=== PATIENT | male | born 1935 | race Caucasian/White ===

== ENCOUNTER 2017-01-14 09:12 | Day surgery (SDC) | payer MEDICARE ==
[2017-01-14] MEDS ORDERED: fentaNYL 100 MCG/2 ML SDV ONE (09:16)
[2017-01-14] MEDS ORDERED: Midazolam 1 MG/ML 2 ML SDV ONE (09:16)
[2017-01-14] MEDS ORDERED: Propofol 200 MG/20 ML SDV ONE (09:16)
[2017-01-14] MEDS ORDERED: Lactated Ringers 1,000 ML IV SCH (10:00)
[2017-01-14 12:08] VITALS: BP 127/58
--- NOTE | 2017-01-15 07:39 | OR ---
DATE OF PROCEDURE: 01/14/2017 PREOPERATIVE DIAGNOSIS: Colon cancer screening. POSTOPERATIVE DIAGNOSIS: Diverticulosis, cecal tumor. PROCEDURE: Colonoscopy to the cecum with biopsy of cecal tumor. ANESTHESIA: IV anesthesia with monitored anesthesia care. INDICATION: This 81-year-old white male is referred for a colonoscopy for colon cancer screening. He says his last colonoscopic exam was done 10 to 15 years ago. I counseled him for the procedure including risks and alternatives, and he gave his informed consent to proceed. DESCRIPTION OF PROCEDURE: The patient was placed in the left lateral decubitus position. IV anesthesia was administered by the Anesthesia Service. Time-out was held. A rectal exam was performed, which was unremarkable. The flexible video Olympus colonoscope was introduced through his anus, up his rectum, and out his colon all way to the cecum. En route, we saw several left-sided diverticula. There was no bleeding or inflammation associated with any of them. In the cecum, we found a sessile polyp which appeared to be a tumor. There was no evidence of obvious cancer here, but this is clearly something which cannot be removed with the colonoscope, it spreads out into the cecum from the junction of the cecum and right colon. We obtained biopsies of this area. The scope was then withdrawn with no other new lesions noted. The scope was retroflexed in the rectum with the distal rectum appearing unremarkable. The scope was straightened and removed. He tolerated the procedure well. We will obtain a CBC, CMP, and type and screen. If this returns a cancer, we will also do a CAT scan and discuss with him about doing a right hemicolectomy. Cesar Mazariegos MD /[id number] ATUL
== END 2017-01-14 12:35 | disposition home or self-care (01) ==
LOC: JP.SDS 09:12
PROVIDERS: ATTEND Surgery
DX: Z12.11 Encounter for screening for malignant neoplasm of colon (principal); D12.0 Benign neoplasm of cecum; Z79.899 Other long term (current) drug therapy
CPT/HCPCS: 36415; 45380; 80053; 82378; 85027; 86850; 86900; 86901; 88305; J2250; J2704; J3010; J7120

== ENCOUNTER 2017-01-28 10:09 | Inpatient (IN) | payer MEDICARE ==
[2017-01-28] MEDS ORDERED: Dextrose 5%-Lactated Ringers 1,000 ML IV SCH (10:45)
[2017-01-28] MEDS ORDERED: Naloxone 0.4 MG/ML SDV IVPUSH PRN (11:41)
[2017-01-28] MEDS ORDERED: Ondansetron 4 MG/2 ML SDV ONE (12:31)
[2017-01-28] MEDS ORDERED: fentaNYL 250 MCG/5 ML SDV ONE ×2 (12:31→14:25)
[2017-01-28] MEDS ORDERED: Propofol 200 MG/20 ML SDV ONE (12:31)
[2017-01-28] MEDS ORDERED: Dexamethasone 4 MG/ML SDV ONE (12:31)
[2017-01-28] MEDS ORDERED: Neostigmine Methylsulfate 1 MG/ML 5 ML Syringe ONE (12:31)
[2017-01-28] MEDS ORDERED: Rocuronium 50 MG/5 ML Vial ONE (12:31)
[2017-01-28] MEDS: cefOXitin 2 GM in Sodium Chloride 0.9% 50 ML IV ONE ×2 (13:55→17:24)
[2017-01-28] MEDS ORDERED: ePHEDrine 50 MG/ML SDV ONE (14:35)
[2017-01-28] MEDS ORDERED: Sodium Chloride 0.9% 10 ML ONE (14:43)
[2017-01-28] MEDS ORDERED: Scopolamine 1.5 MG Transdermal Patch ONE (15:14)
[2017-01-28] MEDS ORDERED: Pantoprazole 40 MG Vial IVPUSH SCH (16:00)
[2017-01-28] MEDS ORDERED: hydrOXYzine HCl 50 MG/ML SDV IM PRN (16:14)
[2017-01-28] MEDS ORDERED: Scopolamine 1.5 MG Transdermal Patch TRDERM SCH (16:15)
[2017-01-28] MEDS: D5 1/2 NS w/ 20 mEq/L KCl 1,000 ML IV SCH (17:25)
[2017-01-28] MEDS: Pantoprazole 40 MG Vial IVPUSH SCH (18:17)
[2017-01-28] MEDS: Ondansetron 4 MG/2 ML SDV IVPUSH PRN (20:12)
[2017-01-28] MEDS ORDERED: HETASTARCH IV ONE (21:51)
[2017-01-28] MEDS ORDERED: SODIUM CHLORIDE IV ONE (21:51)
[2017-01-29] MEDS ORDERED: Lactated Ringers 250 ML IV SCH ×2 (03:15→15:45)
[2017-01-29] MEDS ORDERED: Ibuprofen 400 MG Tab PO PRN (06:33)
[2017-01-29] MEDS ORDERED: traMADol 50 MG Tab PO PRN (06:34)
[2017-01-29] MEDS: D5 1/2 NS w/ 20 mEq/L KCl 1,000 ML IV SCH ×2 (06:39→16:25)
--- NOTE | 2017-01-29 06:41 | PCM.SURGPN ---
- General Info Date of Service: 01/29/17 Date of Surgery/Procedure: 01/28/17 POD#: 1 Post-Op Diagnosis: Endoscopically unresectable tubulovillous adenoma Functional Status: Reports: pain controlled, tolerating diet, ambulating, urinating (Salas. Output is low. ) - Review of Systems General: Reports: No Symptoms HEENT: Reports: no symptoms Pulmonary: Reports: no symptoms Cardiovascular: Reports: No Symptoms Gastrointestinal: Reports: No symptoms, Flatus (Says he is passing gas. Has been taking liquids without problems. ) Genitourinary: Reports: no symptoms Musculoskeletal: Reports: no symptoms Skin: Reports: no symptoms Neurological: Reports: No Symptoms Psychiatric: Reports: no symptoms - Patient Data Vitals - most recent: Last Vital Signs Temp 98.4 F 01/29/17 05:49 Pulse 108 H 01/29/17 05:49 Resp 18 01/29/17 05:49 BP 110/89 01/29/17 05:49 Pulse Ox 94 L 01/29/17 05:49 Weight - most recent: 220 lb I&O - last 24 hours: Intake & Output 01/28/17 01/28/17 01/29/17 14:59 22:59 06:59 Intake Total 120 1538 Output Total 237 99 Balance -117 1439 Lab Results last 24 hrs: Laboratory Results - last 24 hr 01/28/17 01/29/17 01/29/17 Range/Units 18:00 04:50 04:50 WBC 15.6 H 17.8 H (4.5-11.0) K/uL RBC 4.85 4.60 (4.30-5.90) M/uL Hgb 15.9 H 15.0 (12.0-15.0) g/dL Hct 45.8 44.1 (40.0-54.0) % MCV 94 96 (80-98) fL MCH 33 H 33 H (27-31) pg MCHC 35 34 (32-36) % Plt Count 308 298 (150-400) K/uL Sodium 137 L (140-148) mmol/L Potassium 4.8 (3.6-5.2) mmol/L Chloride 104 (100-108) mmol/L Carbon Dioxide 22 (21-32) mmol/L Anion Gap 15.8 H (5.0-14.0) mmol/L BUN 27 H D (7-18) mg/dL Creatinine 1.5 H D (0.8-1.3) mg/dL Est Cr Clr Drug Dosing 36.04 mL/min Estimated GFR (MDRD) 45 L (>60) Glucose 208 H (74-106) mg/dL Calcium 8.2 L (8.5-10.1) mg/dL Med Orders - Current: Current Medications Alvimopan (Entereg) 12 mg PO Q12H [facility] Stop: 02/04/17 09:01 Last Admin: 01/28/17 21:05 Dose: 12 mg Atenolol (Tenormin) 50 mg PO DAILY [facility] Bisacodyl (Dulcolax) 10 mg PO BID [facility] Cetirizine HCl (Zyrtec) 10 mg PO DAILY [facility] Cholecalciferol (Vitamin D3) 1,000 units PO DAILY [facility] Enoxaparin Sodium (Lovenox) 40 mg SUBCUT DAILY [facility] Fluticasone Propionate (Flonase) 0 gm NASBOTH DAILY [facility] Hydroxyzine HCl (Vistaril) 50 mg IM Q6H PRN PRN Reason: Abdominal Pain Dextrose/Lactated Ringer's (Dextrose 5%-Lactated Ringers) 1,000 mls @ 100 mls/ hr IV ASDIRECTED CHANA Last Admin: 01/28/17 11:32 Dose: 100 mls/hr Fentanyl 2,500 mcg/ Sodium (Chloride) 250 mls @ 0 mls/hr EPIDUR TITRATE CHANA; Titrate PRN Reason: Protocol Potassium Chloride/Dextrose/Sod Cl (D5 1/2 Ns W/ 20 Meq/L Kcl) 1,000 mls @ 100 mls/hr IV ASDIRECTED CHANA Last Infusion: 01/29/17 03:11 Dose: 100 mls/hr Lactated Ringer's (Ringers, Lactated) 250 mls @ 250 mls/hr IV .BOLUS CHANA Last Admin: 01/29/17 03:05 Dose: 250 mls/hr Ibuprofen (Motrin) 400 mg PO Q6H PRN PRN Reason: Abdominal Pain Lisinopril (Prinivil) 2.5 mg PO DAILY [facility] Multivitamins/Minerals (Thera M Plus) 1 tab PO DAILY [facility] Naloxone HCl (Narcan) 0.1 mg IVPUSH Q5M PRN PRN Reason: RESP RATE LESS THAN 6/MINUTE Transderm Scop Patch (Check) 0 each TOP DAILY [facility] Ondansetron HCl (Zofran) 4 mg IVPUSH Q6H PRN PRN Reason: Nausea/Vomiting Last Admin: 01/28/17 20:12 Dose: 4 mg Pantoprazole Sodium (Protonix Iv) 40 mg IVPUSH Q24H [facility] Last Admin: 01/28/17 18:17 Dose: 40 mg Scopolamine (Transderm-Scop) 1.5 mg TRDERM Q72H [facility] Senna (Senna) 8.6 mg PO DAILY [facility] Simvastatin (Zocor) 80 mg PO DAILY [facility] Tamsulosin HCl (Flomax) 0.4 mg PO PCBREAKFAST [facility] Tramadol HCl (Ultram) 50 mg PO Q4H PRN PRN Reason: Abdominal Pain Discontinued Medications Alvimopan (Entereg) 12 mg PO ONETIME ONE Stop: 01/28/17 10:16 Last Admin: 01/28/17 12:01 Dose: 12 mg Alvimopan (Entereg) 12 mg PO Q12H [facility] Stop: 02/04/17 04:16 Last Admin: 01/28/17 17:38 Dose: Not Given Atenolol (Tenormin) 50 mg PO DAILY [facility] Cetirizine HCl (Zyrtec) 10 mg PO DAILY [facility] Dexamethasone (Dexamethasone) Confirm Administered Dose 4 mg .ROUTE .STK-MED ONE Stop: 01/28/17 12:32 Enoxaparin Sodium (Lovenox) 40 mg SUBCUT DAILY [facility] Ephedrine Sulfate (Ephedrine Sulfate) Confirm Administered Dose 50 mg .ROUTE .STK-MED ONE Stop: 01/28/17 14:36 Fentanyl (Sublimaze) Confirm Administered Dose 250 mcg .ROUTE .STK-MED ONE Stop: 01/28/17 12:32 Fentanyl (Sublimaze) Confirm Administered Dose 250 mcg .ROUTE .STK-MED ONE Stop: 01/28/17 14:26 Glycopyrrolate () Confirm Administered Dose 1 mg .ROUTE .STK-MED ONE Stop: 01/28/17 12:32 Cefoxitin Sodium 2 gm/ Sodium (Chloride) 50 mls @ 100 mls/hr IV ONETIME ONE Stop: 01/28/17 13:14 Last Admin: 01/28/17 17:24 Dose: Not Given Sodium Chloride (Normal Saline) Confirm Administered Dose 10 mls @ as directed .ROUTE .[facility] ONE Stop: 01/28/17 14:44 Hetastarch/Sodium Chloride (Hetastarch 6% In Normal Saline) 250 mls @ 250 mls/ hr IV ONETIME ONE Stop: 01/28/17 22:50 Last Admin: 01/28/17 22:26 Dose: 250 mls/hr Lisinopril (Prinivil) 2.5 mg PO DAILY [facility] Neostigmine Methylsulfate (Neostigmine) Confirm Administered Dose 5 mg .ROUTE .[facility] ONE Stop: 01/28/17 12:32 Non-Formulary Medication (Cholecalciferol (Vitamin D3) [Vitamin D]) 1,000 unit PO DAILY [facility] Non-Formulary Medication (Fluticasone Propionate [Flonase Allergy Relief]) 2 spray NS DAILY [facility] Non-Formulary Medication (Multivitamin With Minerals [Multiple Vitamin]) 1 tab PO DAILY [facility] Non-Formulary Medication (Multivitamin-Min/Iron/Fa/Vit K [Multi-Day Plus Minerals Tablet]) 1 tab PO DAILY [facility] Non-Formulary Medication (Simvastatin [Simvastatin]) 80 mg PO DAILY [facility] Ondansetron HCl (Zofran) Confirm Administered Dose 4 mg .ROUTE .[facility] ONE Stop: 01/28/17 12:32 Pantoprazole Sodium (Protonix Iv) 40 mg IVPUSH DAILY [facility] Last Admin: 01/28/17 17:37 Dose: Not Given Propofol (Diprivan 20 Ml) Confirm Administered Dose 200 mg .ROUTE .[facility] ONE Stop: 01/28/17 12:32 Rocuronium [place] (Zemuron) Confirm Administered Dose 50 mg .ROUTE .[facility] ONE Stop: 01/28/17 12:32 Scopolamine (Transderm-Scop) Confirm Administered Dose 1.5 mg .ROUTE .[facility] ONE Stop: 01/28/17 15:15 Scopolamine (Transderm-Scop) 1.5 mg TRDERM Q72H [facility] Last Admin: 01/28/17 17:38 Dose: Not Given Tamsulosin HCl (Flomax) 0.4 mg PO PCBREAKFAST CHANA - Exam Wound/Incisions: dressing dry and intact Quality Assessment: urine catheter, DVT prophylaxis General: alert, oriented, cooperative, no acute distress Lungs: Clear to auscultation, Normal respiratory effort Cardiovascular: Regular Rate, Regular Rhythm Abdomen: soft, no tenderness, no distension Extremities: no edema Skin: warm, dry, intact Neurological: no new focal deficit Psy/Mental Status: alert, normal affect, normal mood - Problem List Review Problem List Initiated/Reviewed/Updated: Yes - My Orders Last 24 Hours: Active Orders 24 hr Category Date Time Status Patient Status [ADT] Routine ADT 01/28/17 15:57 Active Ambulate [RC] PER UNIT ROUTINE Care 01/28/17 15:57 Active Antiembolic Devices [RC] .Routine Care 01/28/17 16:07 Active Salas Catheter Insertion [Insert Urinary Catheter] [OM. Care 01/28/17 17:30 Ordered PC] Q24H Intake and Output [RC] Q4HR Care 01/28/17 16:00 Active Notify Provider Intake and Out [RC] PRN Care 01/28/17 16:01 Active Notify Provider Vital Signs [RC] PRN Care 01/28/17 16:01 Active Oxygen Therapy [RC] PRN Care 01/28/17 15:57 Active Pulse Oximetry [RC] CONTINUOUS Care 01/28/17 16:05 Active RT Incentive Spirometry [RC] ASDIRECTED Care 01/28/17 15:57 Active Up With Assistance [RC] ASDIRECTED Care 01/28/17 15:57 Active Up to Chair [RC] ASDIRECTED Care 01/28/17 15:57 Active Urinary Catheter Assessment [RC] Q12H Care 01/28/17 18:20 Active VTE/DVT Education [RC] Click to Edit Care 01/28/17 16:07 Active Respiratory Care Assess and Treatment [CONS] Routine Cons 01/28/17 15:57 Active Advance Diet Instructions [DIET] Diet 01/28/17 Dinner Active BASIC METABOLIC PANEL,BMP [CHEM] AM Lab 01/30/17 05:11 Ordered BASIC METABOLIC PANEL,BMP [CHEM] AM Lab 01/31/17 05:11 Ordered BASIC METABOLIC PANEL,BMP [CHEM] AM Lab 02/01/17 05:11 Ordered BASIC METABOLIC PANEL,BMP [CHEM] AM Lab 02/02/17 05:11 Ordered BASIC METABOLIC PANEL,BMP [CHEM] AM Lab 02/03/17 05:11 Ordered CBC W/O DIFF,HEMOGRAM [HEME] DAILY Lab 01/30/17 05:10 Ordered CBC W/O DIFF,HEMOGRAM [HEME] DAILY Lab 01/31/17 05:10 Ordered CBC W/O DIFF,HEMOGRAM [HEME] DAILY Lab 02/01/17 05:10 Ordered CBC W/O DIFF,HEMOGRAM [HEME] DAILY Lab 02/02/17 05:10 Ordered CBC W/O DIFF,HEMOGRAM [HEME] DAILY Lab 02/03/17 05:10 Ordered Alvimopan [Entereg] Med 01/28/17 21:00 Active 12 mg PO Q12H Atenolol [Tenormin] Med 01/29/17 09:00 Active 50 mg PO DAILY Bisacodyl [Dulcolax] Med 01/29/17 09:00 Ordered 10 mg PO BID Cetirizine [ZyrTEC] Med 01/29/17 09:00 Active 10 mg PO DAILY Cholecalciferol (Vitamin D3) [Vitamin D3] Med 01/29/17 09:00 Active 1,000 units PO DAILY D5 1/2 NS w/ 20 mEq/L KCl 1,000 ml Med 01/28/17 16:15 Active IV ASDIRECTED Dextrose 5%-Lactated Ringers 1,000 ml Med 01/28/17 10:45 Active IV ASDIRECTED Enoxaparin [Lovenox] Med 01/29/17 09:00 Active 40 mg SUBCUT DAILY Fluticasone Propionate [Flonase] Med 01/29/17 09:00 Active 0 gm NASBOTH DAILY Ibuprofen [Motrin] Med 01/29/17 06:33 Ordered 400 mg PO Q6H PRN Lactated Ringers [Ringers, Lactated] 250 ml Med 01/29/17 03:15 Active IV .BOLUS Lisinopril [Prinivil] Med 01/29/17 09:00 Active 2.5 mg PO DAILY Multivitamins w-Iron/Ca/FA/Min [Thera M Plus] Med 01/29/17 09:00 Active 1 tab PO DAILY Naloxone [Narcan] Med 01/28/17 11:41 Active 0.1 mg IVPUSH Q5M PRN Non-Formulary Medication [NF Drug] Med 01/29/17 09:00 Active 0 each TOP DAILY Ondansetron [Zofran] Med 01/28/17 15:57 Active 4 mg IVPUSH Q6H PRN Pantoprazole [ProTONIX IV] Med 01/28/17 18:00 Active 40 mg IVPUSH Q24H Scopolamine [Transderm-Scop] Med 01/31/17 10:00 Active 1.5 mg TRDERM Q72H Sennosides [Senna] Med 01/29/17 09:00 Active 8.6 mg PO DAILY Simvastatin [Zocor] Med 01/29/17 09:00 Active 80 mg PO DAILY Tamsulosin [Flomax] Med 01/29/17 09:00 Active 0.4 mg PO PCBREAKFAST fentaNYL [Sublimaze] 2,500 mcg Med 01/28/17 12:30 Active Sodium Chloride 0.9% [Normal Saline] 200 ml EPIDUR TITRATE hydrOXYzine HCl [Vistaril] Med 01/28/17 16:14 Active 50 mg IM Q6H PRN traMADol [Ultram] Med 01/29/17 06:34 Ordered 50 mg PO Q4H PRN Abdominal Binder [OM.PC] Per Unit Routine Oth 01/28/17 16:00 Ordered DVT/VTE Prophylaxis Reflex [OM.PC] Per Unit Routine Oth 01/28/17 16:07 Ordered Sequential Compression Device [OM.PC] Routine Oth 01/28/17 12:45 Ordered Sequential Compression Device [OM.PC] Routine Oth 01/28/17 15:57 Ordered Resuscitation Status Routine Resus Stat 01/28/17 15:57 Ordered Medication Orders Alvimopan (Entereg) 12 mg PO Q12H [facility]ANA Stop: 02/04/17 09:01 Last Admin: 01/28/17 21:05 Dose: 12 mg Atenolol (Tenormin) 50 mg PO DAILY [facility] Bisacodyl (Dulcolax) 10 mg PO BID [facility] Cetirizine HCl (Zyrtec) 10 mg PO DAILY [facility] Cholecalciferol (Vitamin D3) 1,000 units PO DAILY [facility] Enoxaparin Sodium (Lovenox) 40 mg SUBCUT DAILY [facility] Fluticasone Propionate (Flonase) 0 gm NASBOTH DAILY [facility] Hydroxyzine HCl (Vistaril) 50 mg IM Q6H PRN PRN Reason: Abdominal Pain Dextrose/Lactated Ringer's (Dextrose 5%-Lactated Ringers) 1,000 mls @ 100 mls/ hr IV ASDIRECTED CHANA Last Admin: 01/28/17 11:32 Dose: 100 mls/hr Fentanyl 2,500 mcg/ Sodium (Chloride) 250 mls @ 0 mls/hr EPIDUR TITRATE CHANA; Titrate PRN Reason: Protocol Potassium Chloride/Dextrose/Sod Cl (D5 1/2 Ns W/ 20 Meq/L Kcl) 1,000 mls @ 100 mls/hr IV ASDIRECTED CHANA Last Infusion: 01/29/17 03:11 Dose: 100 mls/hr Admin: 01/28/17 17:25 Dose: 75 mls/hr Lactated Ringer's (Ringers, Lactated) 250 mls @ 250 mls/hr IV .BOLUS [facility] Last Admin: 01/29/17 03:05 Dose: 250 mls/hr Ibuprofen (Motrin) 400 mg PO Q6H PRN PRN Reason: Abdominal Pain Lisinopril (Prinivil) 2.5 mg PO DAILY [facility] Multivitamins/Minerals (Thera M Plus) 1 tab PO DAILY [facility] Naloxone HCl (Narcan) 0.1 mg IVPUSH Q5M PRN PRN Reason: RESP RATE LESS THAN 6/MINUTE Transderm Scop Patch (Check) 0 each TOP DAILY [facility] Ondansetron HCl (Zofran) 4 mg IVPUSH Q6H PRN PRN Reason: Nausea/Vomiting Last Admin: 01/28/17 20:12 Dose: 4 mg Pantoprazole Sodium (Protonix Iv) 40 mg IVPUSH Q24H [facility] Last Admin: 01/28/17 18:17 Dose: 40 mg Scopolamine (Transderm-Scop) 1.5 mg TRDERM Q72H [facility] Senna (Senna) 8.6 mg PO DAILY [facility] Simvastatin (Zocor) 80 mg PO DAILY [facility] Tamsulosin HCl (Flomax) 0.4 mg PO PCBREAKFAST [facility] Tramadol HCl (Ultram) 50 mg PO Q4H PRN PRN Reason: Abdominal Pain - Assessment Assessment (Free Text/Narrative):: Low urine output. Taking fluids well. No pain. - Plan Plan (Free Text/Narrative):: Fluid boluses as needed.
[2017-01-29] MEDS ORDERED: Lactated Ringers 250 ML IV ONE ×2 (06:45→17:00)
--- NOTE | 2017-01-29 07:27 | OR ---
DATE OF PROCEDURE: 01/28/2017 PREOPERATIVE DIAGNOSIS: Endoscopically unresectable tubulovillous adenoma of cecum. POSTOPERATIVE DIAGNOSIS: Endoscopically unresectable tubulovillous adenoma of cecum. PROCEDURE: Right hemicolectomy with primary ileotransverse colon anastomosis. ANESTHESIA: General endotracheal. INDICATION: This 81-year-old white male underwent a colonoscopy earlier this month with finding of a lesion in his cecum. This was sessile and unresectable endoscopically. It on biopsy returned a tubulovillous adenoma. He is admitted for a right hemicolectomy. I counseled him for surgery including risks and alternatives and he gave his informed consent to proceed with the procedure. DESCRIPTION OF PROCEDURE: After adequate general endotracheal anesthesia was obtained, a Salas catheter was placed. The leg compression stockings were in place and used during the entire procedure. His abdomen was prepped and draped in usual sterile fashion. Time-out was held. A midline incision was made from just above to just below the umbilicus. This was carried deep using Bovie cautery to the fascia. The fascia was incised and the underlying perineum was elevated and incised. The peritoneal and fascial incisions were extended the length of the skin incision using Bovie cautery while protecting underlying structures. The abdomen was explored and appeared unremarkable. The peritoneal reflection was taken down on the right side, mobilizing up to the right colon. He does have a history of an appendectomy done over 50 years ago. A suitable point for dividing the bowel proximally in the distal terminal ileum was selected. The RAEANN was used to divide this with a blue load going from the antimesenteric border to the mesenteric border. A suitable point in the transverse colon for the ileotransverse colon anastomosis was selected and then the transverse colon was divided at this point with one end of the staple line ending at the planned anastomotic teniae. The intervening mesentery was divided well away from the colon using the endoscopic RAEANN with vascular loads. It was done well away to get adequate lymph nodes should there be a carcinoma within the tubular villous adenoma. The specimen then consisting of a small portion of the terminal ileum, cecum, and right colon was delivered from the field. A functional end-to-end anastomosis was then made by bringing the terminal ileum up to the transverse colon and anastomosing the antimesenteric border of the terminal ileum to the teniae of the transverse colon. This was done by placing the an 80 mm blue load RAEANN in each limb and firing it. The distal end of the staple line was bolstered with 2-0 silk suture. The stapler was removed. The opening through which the stapler had been placed was then closed with another RAEANN blue load stapler. This last staple line was oversewn with Lembert stitches of 3-0 silk. All looked well. The anastomosis appeared intact. The mesenteric defect was closed with a running stitch of 3-0 Vicryl. The incision was irrigated with sterile water and suctioned dry. We did place some Surgicel down in the right colic gutter. Interceed was then placed over the abdomen and the fascia was closed with a running stitch of #2 Vicryl. The incision again irrigated with sterile water and suctioned dry. Skin ulises were placed to approximate the skin. A sterile dressing was applied. The specimen was then opened off the field and the endoscopically unresectable tubulovillous adenoma was seen in the colon. The anesthesia was reversed. He was extubated and brought to the recovery room in good condition having tolerated the procedure well. Cesar Mazariegos MD /[id number] ATUL
[2017-01-29] MEDS: Cetirizine 10 MG Tab PO SCH (08:56)
[2017-01-29] MEDS: Bisacodyl 5 MG Tab PO SCH ×2 (08:56→21:07)
[2017-01-29] MEDS: Lisinopril 2.5 MG Tab PO SCH (08:56)
[2017-01-29] MEDS: Cholecalciferol (Vitamin D3) 1,000 Unit Tab PO SCH (08:57)
[2017-01-29] MEDS: Atenolol 50 MG Tab PO SCH (08:58)
[2017-01-29] MEDS: Multivitamins with Iron/Calcium/Folic Acid/Minerals Tab PO SCH (08:58)
[2017-01-29] MEDS: Sennosides 8.6 MG Tab PO SCH (08:58)
[2017-01-29] MEDS: Fluticasone Propionate Nasal Spray 16 GM Bottle NASBOTH SCH (08:58)
[2017-01-29] MEDS: TRANSDERM SCOP CHECK TOP SCH (08:59)
[2017-01-29] MEDS ORDERED: Atenolol 50 MG Tab PO SCH (09:00)
[2017-01-29] MEDS ORDERED: Tamsulosin 0.4 MG Cap.ER PO SCH (09:00)
[2017-01-29] MEDS ORDERED: [UNRECOGNIZED DRUG - REMARK] NS SCH (09:00)
[2017-01-29] MEDS ORDERED: Lisinopril 2.5 MG Tab PO SCH (09:00)
[2017-01-29] MEDS ORDERED: Non-Formulary Medication 1 Each (Cholecalciferol (Vitamin D3) [Vitamin D] 1,000 UNIT) PO SCH (09:00)
[2017-01-29] MEDS: Tamsulosin 0.4 MG Cap.ER PO SCH (09:00)
[2017-01-29] MEDS ORDERED: Non-Formulary Medication 1 Each (Multivitamin-Min/Iron/Fa/Vit K [Multi-Day Plus Minerals T PO SCH ×2 (09:00)
[2017-01-29] MEDS ORDERED: Cetirizine 10 MG Tab PO SCH (09:00)
[2017-01-29] MEDS ORDERED: Enoxaparin 40 MG/0.4 ML Syringe SUBCUT SCH ×2 (09:00)
[2017-01-29] MEDS ORDERED: Non-Formulary Medication 1 Each (Simvastatin [Simvastatin] 80 MG) PO SCH (09:00)
[2017-01-29] MEDS ORDERED: Non-Formulary Medication 1 Each (Multivitamin With Minerals [Multiple Vitamin] 1 TAB) PO SCH (09:00)
[2017-01-29] MEDS: fentaNYL 2,500 MCG in Sodium Chloride 0.9% 200 ML EPIDUR SCH (11:48)
[2017-01-29] MEDS: Enoxaparin 40 MG/0.4 ML Syringe SUBCUT SCH (13:36)
[2017-01-29] MEDS: Pantoprazole 40 MG Vial IVPUSH SCH (17:12)
[2017-01-29] MEDS: Simvastatin 20 MG Tab PO SCH (17:13)
[2017-01-29] MEDS ORDERED: Lactated Ringers 500 ML IV ONE (20:59)
[2017-01-30] MEDS ORDERED: Furosemide 20 MG/2 ML VIAL IVPUSH ONE (01:22)
[2017-01-30] MEDS: D5 1/2 NS w/ 20 mEq/L KCl 1,000 ML IV SCH (04:06)
[2017-01-30] MEDS ORDERED: Dextrose 5%-0.45% NaCl 1,000 ML IV SCH (07:45)
[2017-01-30] MEDS: fentaNYL 2,500 MCG in Sodium Chloride 0.9% 200 ML EPIDUR SCH (07:48)
[2017-01-30] MEDS ORDERED: Sodium Chloride 0.9% 1,000 ML IV SCH ×2 (08:15→13:00)
--- NOTE | 2017-01-30 08:45 | CR ---
Chest 1V Frontal HISTORY: Hypotension, leukocytosis COMPARISON: 08/30/2012 FINDINGS: There is mild linear atelectasis versus early infiltrate left lung base. Remainder the luz st is clear. Heart size is felt to be within normal limits for the AP portable technique and stable. Old median sternotomy changes are noted. There is no vascular redistribution or pleural fluid. Inco mplete inspiration causes some crowding of the pulmonary markings. IMPRESSION: Incomplete inspiration causes some crowding of the pulmonary markings. There are mild li near bone less changes versus early infiltrates left lung base. Remainder the chest is stable. Recom mend clinical correlation and follow-up.
[2017-01-30] MEDS ORDERED: Piperacillin/Tazobactam 3.375 GM in Sodium Chloride 0.9% 50 ML IV SCH (09:45)
[2017-01-30] MEDS ORDERED: Levofloxacin/Dextrose 5%-Water 500 MG in Premix Bag 1 BAG IV SCH (10:00)
--- NOTE | 2017-01-30 10:03 | PCM.CONS ---
H&P History of Present Illness - General Date of Service: 01/30/17 Admit Problem/Dx: Admission Diagnosis/Problem Admission Diagnosis/Problem "Adenoma, no subtype " Source of Information: Patient, Family, Old Records, Provider, RN Notes Reviewed History Limitations: Reports: No Limitations - History of Present Illness Initial Comments - Free Text/Narative: This patient is a 81-year-old gentleman been asked to see by Dr. Mazariegos for further suggestions concerning hypotension, renal insufficiency, hyperkalemia, and leukocytosis. 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 During the postoperative period has had low urine outputs with intermittent hypotension requiring fluid boluses. Labs are this morning show progressive renal compromise and significant hyperkalemia. Vision reports that he's otherwise been feeling well denies significant shortness of breath or any symptoms of chest pain or pressure. He has been able to be up walking in the halls and spent much of the day in the chair yesterday. He has known underlying coronary artery disease status post coronary artery bypass surgery done approximately 5 years ago. White blood cell count has been elevated and has increased over the past few days. Denies significant increase in abdominal pain, he has tolerated clear liquids but has not yet passed gas or had a bowel movement. Bilateral Middle Abdomen Pain Score (Numeric/FACES): 0 - Related Data Allergies/Adverse Reactions: Allergies Allergy/AdvReac Type Severity Reaction Status Date / Time No Known Allergies Allergy Verified 01/14/17 09:25 Home Medications: Home Meds Aspirin 81 mg PO DAILY 01/12/17 [History] Atenolol [Atenolol] 50 mg PO DAILY 01/12/17 [History] Cetirizine [ZyrTEC] 10 mg PO DAILY 01/12/17 [History] Cholecalciferol (Vitamin D3) [Vitamin D] 1,000 unit PO DAILY 01/12/17 [History] Fluticasone Propionate [Flonase Allergy Relief] 2 spray NS DAILY 01/12/17 [ History] Lisinopril [Prinivil] 2.5 mg PO DAILY 01/12/17 [History] Multivitamin with Minerals [Multiple Vitamin] 1 tab PO DAILY 01/12/17 [History] Multivitamin-Min/Iron/FA/Vit K [Multi-Day Plus Minerals Tablet] 1 tab PO DAILY 01/12/17 [History] Ranitidine [Zantac] 300 mg PO DAILY 01/12/17 [History] Sennosides [Senna] 1 tab PO ASDIRECTED 01/12/17 [History] Simvastatin [Simvastatin] 80 mg PO DAILY 01/12/17 [History] Past Medical History HEENT History: Reports: Impaired Vision Cardiovascular History: Reports: Bypass, CAD, Hypertension Genitourinary History: Reports: BPH Musculoskeletal History: Reports: Arthritis - Infectious Disease History Infectious Disease History: Reports: Chicken Pox, Measles, Mumps - Past Surgical History HEENT Surgical History: Reports: Tonsillectomy Cardiovascular Surgical History: Reports: Coronary Artery Bypass GI Surgical History: Reports: Appendectomy, Colonoscopy Male Surgical History: Reports: None Musculoskeletal Surgical History: Reports: None Social & Family History - Family History Family Medical History: Noncontributory - Tobacco Use Smoking Status *Q: Former Smoker Years of Tobacco use: 20 Packs/Tins Daily: 1 Used Tobacco, but Quit: Yes Month Tobacco Last Used: 1964 Second Hand Smoke Exposure: No - Caffeine Use Caffeine Use: Reports: Coffee, Tea - Alcohol Use Days Per Week of Alcohol Use: 2 Number of Drinks Per Day: 1 Total Drinks Per Week: 2 Date of Last Drink: 01/14/17 - Recreational Drug Use Recreational Drug Use: No H&P Review of Systems - Review of Systems: Review Of Systems: See Below General: Reports: Weakness. Denies: Fever, Chills HEENT: Reports: No Symptoms Pulmonary: Reports: No Symptoms Cardiovascular: Reports: No Symptoms Gastrointestinal: Reports: Abdominal Pain. Denies: Flatus, Nausea, Vomiting Genitourinary: Reports: No Symptoms Musculoskeletal: Reports: No Symptoms Skin: Reports: No Symptoms Psychiatric: Reports: No Symptoms Neurological: Reports: No Symptoms Hematologic/Lymphatic: Reports: No Symptoms Immunologic: Reports: No Symptoms Exam - Exam Exam: See Below - Vital Signs Vital Signs: Last Vital Signs Temp 99.3 F 01/30/17 07:08 Pulse 80 01/30/17 07:08 Resp 12 01/30/17 08:03 BP 95/65 01/30/17 07:08 Pulse Ox 94 L 01/30/17 07:40 Weight: 219 lb 15.988 oz - Exam Quality Assessment: DVT Prophylaxis General: Alert, Oriented, Cooperative, Mild Distress Neck: Supple, Trachea Midline, +2 Carotid Pulse wo Bruit Lungs: Clear to Auscultation, Normal Respiratory Effort Cardiovascular: Regular Rate, Regular Rhythm, Normal S1, Normal S2. No: Irregular Rhythm, Bradycardia, Tachycardia, Systolic Murmur, Diastolic Murmur Abdomen: Soft, Tenderness, Hypoactive Bowel Sounds. No: Organomegaly, Peritoneal Signs, Distention, Guarding, Rigidity, Rebound Back Exam: Normal Inspection, Full Range of Motion, NT Extremities: 3, Normal Inspection, 10 Skin: Warm, Dry, Intact Neurological: Cranial Nerves Intact, Strength Equal Bilateral, Normal Speech, Normal Tone, Sensation Intact. No: Focal Deficit Neuro Extensive - Mental Status: Alert, Oriented x3, Normal Mood/Affect, Normal Cognition, Memory Intact - Patient Data Lab Results last 24 hrs: Laboratory Results - last 24 hr 01/30/17 01/30/17 01/30/17 Range/Units 05:10 05:11 09:04 WBC 18.3 H (4.5-11.0) K/uL RBC 3.70 L (4.30-5.90) M/uL Hgb 12.5 D (12.0-15.0) g/dL Hct 35.8 L (40.0-54.0) % MCV 97 (80-98) fL MCH 34 H (27-31) pg MCHC 35 (32-36) % Plt Count 249 (150-400) K/uL Sodium 134 L (140-148) mmol/L Potassium 6.0 H (3.6-5.2) mmol/L Chloride 102 (100-108) mmol/L Carbon Dioxide 24 (21-32) mmol/L Anion Gap 14.0 (5.0-14.0) mmol/L BUN 55 H D (7-18) mg/dL Creatinine 2.2 H (0.8-1.3) mg/dL Est Cr Clr Drug Dosing 24.69 mL/min Estimated GFR (MDRD) 29 L (>60) Glucose 129 H (74-106) mg/dL Calcium 8.3 L (8.5-10.1) mg/dL Total Bilirubin 0.0 L D (0.2-1.0) mg/dL Direct Bilirubin 0.15 (0.0-0.2) mg/dL Indirect Bilirubin -0.15 AST 34 D (15-37) U/L ALT 24 (12-78) U/L Alkaline Phosphatase 32 L (46-116) U/L Total Protein 6.2 L (6.4-8.2) g/dL Albumin 2.8 L (3.4-5.0) g/dL Globulin 3.4 (2.3-3.5) g/dL Albumin/Globulin Ratio 0.8 L (1.2-2.2) Result Diagrams: 01/30/17 05:10 01/30/17 05:11 Consult PN Assessment/Plan Procedures: Procedures BLOOD TYPING SEROLOGIC ABO (01/14/17) BLOOD TYPING SEROLOGIC RH(D) (01/14/17) CARCINOEMBRYONIC ANTIGEN (01/14/17) COLONOSCOPY AND BIOPSY (01/14/17) COMPLETE CBC AUTOMATED (01/14/17) COMPREHEN METABOLIC PANEL (01/14/17) PT EVALUATION (11/29/15) RBC ANTIBODY SCREEN (01/14/17) ROUTINE VENIPUNCTURE (01/14/17) THERAPEUTIC EXERCISES (11/29/15) TISSUE EXAM BY PATHOLOGIST (01/14/17) Problem List Initiated/Reviewed/Updated: Yes My Orders last 24 hours: My Active Orders 01/30/17 08:12 UA W/MICROSCOPIC [URIN] Stat 01/30/17 08:15 Sodium Chloride 0.9% [Normal Saline] 1,000 ml IV ASDIRECTED 01/30/17 09:43 CULTURE BLOOD [BC] Stat CULTURE BLOOD [BC] Stat Blood Culture x2 Reflex Set [OM.PC] Urgent 01/30/17 09:45 Cardiac Monitoring [RC] .As Directed 01/30/17 10:00 Levofloxacin/Dextrose 5%-Water [Levaquin in D5W 500 MG/100 ML] 500 mg Premix Bag 1 bag IV Q24H 01/30/17 11:00 Piperacillin/Tazobactam [Zosyn] 2.25 gm Sodium Chloride 0.9% [Normal Saline] 50 ml IV Q6H 01/30/17 17:00 BASIC METABOLIC PANEL,BMP [CHEM] Stat Plan: ASSESSMENT AND RECOMMENDATIONS STATUS POST RIGHT HEMICOLECTOMY FOR CECAL MASS -Ongoing postoperative care per Dr. Mazariegos INTERMITTENT HYPOTENSION-likely secondary to recent surgery with third spacing -Vigorous IV fluid replacement -Monitor in ICU ACUTE ON CHRONIC RENAL INSUFFICIENCY-at baseline has stage III chronic kidney disease -Closely monitor urine output and renal function -IV fluid resuscitation as above -Hold lisinopril and diuretic therapy HYPERKALEMIA-likely secondary to progressive renal insufficiency -Kayexalate 45 g by mouth now -Cardiac monitoring -Repeat potassium level later this afternoon LEUKOCYTOSIS-no fever thus far but elevated level concerning for possible underlying infection. Chest x-ray shows possible left lung infiltrate. -Blood cultures pending -Empiric IV antibiotic therapy with Zosyn and levofloxacin pending culture results -If no improvement consider CT scan of the abdomen to evaluate for possible source of abdominal infection Requesting Provider: BLAKE Date Consult Requested: 01/30/17 Reason for Consult: Hypotension, renal insufficiency, hyperkalemia, and leukocytosis Patient History Reviewed: Yes
[2017-01-30] MEDS: Sodium Polystyrene Sulfonate 15 GM/60 ML Susp 60 ML Bot PO ONE ×2 (10:55→12:35)
[2017-01-30] MEDS: Lisinopril 2.5 MG Tab PO SCH ×2 (11:01→12:51)
[2017-01-30] MEDS: Piperacillin/Tazobactam 2.25 GM in Sodium Chloride 0.9% 50 ML IV SCH ×3 (11:45→22:47)
[2017-01-30] MEDS: Cetirizine 10 MG Tab PO SCH (11:48)
[2017-01-30] MEDS: Bisacodyl 5 MG Tab PO SCH ×2 (11:49→20:46)
[2017-01-30] MEDS: Multivitamins with Iron/Calcium/Folic Acid/Minerals Tab PO SCH (11:52)
[2017-01-30] MEDS: Atenolol 50 MG Tab PO SCH (11:52)
[2017-01-30] MEDS: TRANSDERM SCOP CHECK TOP SCH (12:00)
[2017-01-30] MEDS: Cholecalciferol (Vitamin D3) 1,000 Unit Tab PO SCH (12:06)
[2017-01-30] MEDS: Sennosides 8.6 MG Tab PO SCH (12:06)
[2017-01-30] MEDS: Fluticasone Propionate Nasal Spray 16 GM Bottle NASBOTH SCH (12:11)
[2017-01-30] MEDS: Tamsulosin 0.4 MG Cap.ER PO SCH (12:13)
[2017-01-30] MEDS: Enoxaparin 40 MG/0.4 ML Syringe SUBCUT SCH (12:50)
[2017-01-30] MEDS ORDERED: Enoxaparin 30 MG/0.3 ML Syringe SUBCUT SCH (13:00)
[2017-01-30] MEDS ORDERED: Sodium Polystyrene Sulfonate 15 GM/60 ML Susp 60 ML Bot PO ONE (13:03)
[2017-01-30] MEDS ORDERED: Sodium Polystyrene Sulfonate 15 GM/60 ML Susp 60 ML Bot RECTAL ONE (13:10)
[2017-01-30] MEDS: Simvastatin 20 MG Tab PO SCH (16:44)
--- NOTE | 2017-01-30 17:05 | PCM.SURGPN ---
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 ), incentive spirometry - Review of Systems General: Reports: No Symptoms HEENT: Reports: no symptoms Pulmonary: Reports: no symptoms Cardiovascular: Reports: No Symptoms Gastrointestinal: Reports: No symptoms, Other (No flatus nor BM. Tolerating clear liquid diet. ) Genitourinary: Reports: no symptoms Musculoskeletal: Reports: no symptoms Skin: Reports: no symptoms Neurological: Reports: No Symptoms Psychiatric: Reports: no symptoms - Patient Data Vitals - most recent: Last Vital Signs Temp 99.3 F 01/30/17 07:08 Pulse 80 01/30/17 07:08 Resp 12 01/30/17 08:03 BP 124/71 01/30/17 11:01 Pulse Ox 94 L 01/30/17 07:40 Weight - most recent: 219 lb 15.988 oz I&O - last 24 hours: Intake & Output 01/30/17 01/30/17 01/30/17 06:59 14:59 22:59 Intake Total 1237 Output Total 165 290 Balance 1072 -290 Lab Results last 24 hrs: Laboratory Results - last 24 hr 01/30/17 01/30/17 01/30/17 Range/Units 05:10 05:11 09:04 WBC 18.3 H (4.5-11.0) K/uL RBC 3.70 L (4.30-5.90) M/uL Hgb 12.5 D (12.0-15.0) g/dL Hct 35.8 L (40.0-54.0) % MCV 97 (80-98) fL MCH 34 H (27-31) pg MCHC 35 (32-36) % Plt Count 249 (150-400) K/uL Sodium 134 L (140-148) mmol/L Potassium 6.0 H (3.6-5.2) mmol/L Chloride 102 (100-108) mmol/L Carbon Dioxide 24 (21-32) mmol/L Anion Gap 14.0 (5.0-14.0) mmol/L BUN 55 H D (7-18) mg/dL Creatinine 2.2 H (0.8-1.3) mg/dL Est Cr Clr Drug Dosing 24.69 mL/min Estimated GFR (MDRD) 29 L (>60) Glucose 129 H (74-106) mg/dL Calcium 8.3 L (8.5-10.1) mg/dL Total Bilirubin 0.0 L D (0.2-1.0) mg/dL Direct Bilirubin 0.15 (0.0-0.2) mg/dL Indirect Bilirubin -0.15 AST 34 D (15-37) U/L ALT 24 (12-78) U/L Alkaline Phosphatase 32 L (46-116) U/L Total Protein 6.2 L (6.4-8.2) g/dL Albumin 2.8 L (3.4-5.0) g/dL Globulin 3.4 (2.3-3.5) g/dL Albumin/Globulin Ratio 0.8 L (1.2-2.2) Urine Color Urine Appearance Urine pH (4.5-8.0) Ur Specific [place] (1.008-1.030) Urine Protein (NEGATIVE) mg/dL Urine Glucose (UA) (NEGATIVE) mg/dL Urine Ketones (NEGATIVE) mg/dL Urine Occult Blood (NEGATIVE) Urine Nitrite (NEGAITVE) Urine Bilirubin (NEGATIVE) Urine Urobilinogen (NORMAL) mg/dL Ur Leukocyte Esterase (NEGATIVE) Urine RBC (0-5) Urine WBC (0-5) Ur Epithelial Cells Amorphous Sediment Urine Bacteria Urine Mucus Urine Other 01/30/17 Range/Units 15:30 WBC (4.5-11.0) K/uL RBC (4.30-5.90) M/uL Hgb (12.0-15.0) g/dL Hct (40.0-54.0) % MCV (80-98) fL MCH (27-31) pg MCHC (32-36) % Plt Count (150-400) K/uL Sodium (140-148) mmol/L Potassium (3.6-5.2) mmol/L Chloride (100-108) mmol/L Carbon Dioxide (21-32) mmol/L Anion Gap (5.0-14.0) mmol/L BUN (7-18) mg/dL Creatinine (0.8-1.3) mg/dL Est Cr Clr Drug Dosing mL/min Estimated GFR (MDRD) (>60) Glucose (74-106) mg/dL Calcium (8.5-10.1) mg/dL Total Bilirubin (0.2-1.0) mg/dL Direct Bilirubin (0.0-0.2) mg/dL Indirect Bilirubin AST (15-37) U/L ALT (12-78) U/L Alkaline Phosphatase (46-116) U/L Total Protein (6.4-8.2) g/dL Albumin (3.4-5.0) g/dL Globulin (2.3-3.5) g/dL Albumin/Globulin Ratio (1.2-2.2) Urine Color Yellow Urine Appearance Cloudy Urine pH 5.0 (4.5-8.0) Ur Specific [place] 1.020 (1.008-1.030) Urine Protein Negative (NEGATIVE) mg/dL Urine Glucose (UA) Normal (NEGATIVE) mg/dL Urine Ketones Negative (NEGATIVE) mg/dL Urine Occult Blood Large (NEGATIVE) Urine Nitrite Negative (NEGAITVE) Urine Bilirubin Negative (NEGATIVE) Urine Urobilinogen Normal (NORMAL) mg/dL Ur Leukocyte Esterase Moderate (NEGATIVE) Urine RBC 5-10 H (0-5) Urine WBC 10-20 H (0-5) Ur Epithelial Cells Few Amorphous Sediment Moderate Urine Bacteria Few Urine Mucus Moderate Urine Other See note Med Orders - Current: Current Medications Alvimopan (Entereg) 12 mg PO Q12H [facility] Stop: 02/04/17 09:01 Last Admin: 01/30/17 11:48 Dose: 12 mg Atenolol (Tenormin) 50 mg PO DAILY [facility] Last Admin: 01/30/17 11:52 Dose: 50 mg Bisacodyl (Dulcolax) 10 mg PO BID [facility] Last Admin: 01/30/17 11:49 Dose: 10 mg Cetirizine HCl (Zyrtec) 10 mg PO DAILY [facility] Last Admin: 01/30/17 11:48 Dose: 10 mg Cholecalciferol (Vitamin D3) 1,000 units PO DAILY [facility] Last Admin: 01/30/17 12:06 Dose: 1,000 units Enoxaparin Sodium (Lovenox) 30 mg SUBCUT Q24H [facility] Last Admin: 01/30/17 13:11 Dose: 30 mg Fluticasone Propionate (Flonase) 0 gm NASBOTH DAILY [facility] Last Admin: 01/30/17 12:11 Dose: 2 spray Hydroxyzine HCl (Vistaril) 50 mg IM Q6H PRN PRN Reason: Abdominal Pain Fentanyl 2,500 mcg/ Sodium (Chloride) 250 mls @ 0 mls/hr EPIDUR TITRATE [facility]; Titrate PRN Reason: Protocol Last Titration: 01/30/17 08:19 Dose: 8 ml/hr, 8 mls/hr Piperacillin Sod/Tazobactam (Sod 2.25 gm/ Sodium Chloride) 50 mls @ 100 mls/hr IV Q6H [facility] Last Admin: 01/30/17 16:45 Dose: 100 mls/hr Levofloxacin/Dextrose 250 mg/ (Premix) 50 mls @ 50 mls/hr IV Q24H [facility] Sodium Chloride (Normal Saline) 1,000 mls @ 250 mls/hr IV ASDIRECTED [facility] Multivitamins/Minerals (Thera M Plus) 1 tab PO DAILY [facility] Last Admin: 01/30/17 11:52 Dose: 1 tab Naloxone HCl (Narcan) 0.1 mg IVPUSH Q5M PRN PRN Reason: RESP RATE LESS THAN 6/MINUTE Transderm Scop Patch (Check) 0 each TOP DAILY [facility] Last Admin: 01/30/17 12:00 Dose: Not Given Ondansetron HCl (Zofran) 4 mg IVPUSH Q6H PRN PRN Reason: Nausea/Vomiting Last Admin: 01/28/17 20:12 Dose: 4 mg Pantoprazole Sodium (Protonix Iv) 40 mg IVPUSH Q24H [facility] Last Admin: 01/29/17 17:12 Dose: 40 mg Scopolamine (Transderm-Scop) 1.5 mg TRDERM Q72H [facility] Senna (Senna) 8.6 mg PO DAILY [facility] Last Admin: 01/30/17 12:06 Dose: 8.6 mg Simvastatin (Zocor) 80 mg PO QPM [facility] Last Admin: 01/30/17 16:44 Dose: 80 mg Tamsulosin HCl (Flomax) 0.4 mg PO PCBREAKFAST [facility] Last Admin: 01/30/17 12:13 Dose: 0.4 mg Tramadol HCl (Ultram) 50 mg PO Q4H PRN PRN Reason: Abdominal Pain Discontinued Medications Alvimopan (Entereg) 12 mg PO ONETIME ONE Stop: 01/28/17 10:16 Last Admin: 01/28/17 12:01 Dose: 12 mg Alvimopan (Entereg) 12 mg PO Q12H [facility] Stop: 02/04/17 04:16 Last Admin: 01/28/17 17:38 Dose: Not Given Atenolol (Tenormin) 50 mg PO DAILY [facility] Cetirizine HCl (Zyrtec) 10 mg PO DAILY [facility] Dexamethasone (Dexamethasone) Confirm Administered Dose 4 mg .ROUTE .STK-MED ONE Stop: 01/28/17 12:32 Enoxaparin Sodium (Lovenox) 40 mg SUBCUT DAILY [facility] Enoxaparin Sodium (Lovenox) 40 mg SUBCUT DAILY [facility] Enoxaparin Sodium (Lovenox) 40 mg SUBCUT DAILY [facility] Last Admin: 01/30/17 12:50 Dose: Not Given Ephedrine Sulfate (Ephedrine Sulfate) Confirm Administered Dose 50 mg .ROUTE .STK-MED ONE Stop: 01/28/17 14:36 Fentanyl (Sublimaze) Confirm Administered Dose 250 mcg .ROUTE .STK-MED ONE Stop: 01/28/17 12:32 Fentanyl (Sublimaze) Confirm Administered Dose 250 mcg .ROUTE .STK-MED ONE Stop: 01/28/17 14:26 Furosemide (Lasix) 20 mg IVPUSH ONETIME ONE Stop: 01/30/17 01:23 Last Admin: 01/30/17 02:14 Dose: 20 mg Glycopyrrolate () Confirm Administered Dose 1 mg .ROUTE .STK-MED ONE Stop: 01/28/17 12:32 Dextrose/Lactated Ringer's (Dextrose 5%-Lactated Ringers) 1,000 mls @ 100 mls/ hr IV ASDIRECTED [facility] Last Admin: 01/28/17 11:32 Dose: 100 mls/hr Cefoxitin Sodium 2 gm/ Sodium (Chloride) 50 mls @ 100 mls/hr IV ONETIME ONE Stop: 01/28/17 13:14 Last Admin: 01/28/17 17:24 Dose: Not Given Sodium Chloride (Normal Saline) Confirm Administered Dose 10 mls @ as directed .ROUTE .STK-MED ONE Stop: 01/28/17 14:44 Potassium Chloride/Dextrose/Sod Cl (D5 1/2 Ns W/ 20 Meq/L Kcl) 1,000 mls @ 100 mls/hr IV ASDIRECTED [facility] Last Admin: 01/30/17 04:06 Dose: 100 mls/hr Hetastarch/Sodium Chloride (Hetastarch 6% In Normal Saline) 250 mls @ 250 mls/ hr IV ONETIME ONE Stop: 01/28/17 22:50 Last Admin: 01/28/17 22:26 Dose: 250 mls/hr Lactated Ringer's (Ringers, Lactated) 250 mls @ 250 mls/hr IV .BOLUS [facility] Last Admin: 01/29/17 03:05 Dose: 250 mls/hr Lactated Ringer's (Ringers, Lactated) 250 mls @ 250 mls/hr IV .BOLUS ONE Stop: 01/29/17 07:44 Last Admin: 01/29/17 06:30 Dose: 250 mls/hr Lactated Ringer's (Ringers, Lactated) 250 mls @ 250 mls/hr IV ONETIME ONE Stop: 01/29/17 17:59 Last Admin: 01/29/17 16:30 Dose: 250 mls/hr Lactated Ringer's (Ringers, Lactated) 500 mls @ 500 mls/hr IV BOLUS ONE Stop: 01/29/17 21:58 Last Admin: 01/29/17 21:12 Dose: 500 mls/hr Dextrose/Sodium Chloride (Dextrose 5%-1/2 Ns) 1,000 mls @ 100 mls/hr IV ASDIRECTED [facility] Last Admin: 01/30/17 07:57 Dose: 100 mls/hr Sodium Chloride (Normal Saline) 1,000 mls @ 500 mls/hr IV ASDIRECTED [facility] Stop: 01/30/17 10:16 Last Admin: 01/30/17 08:42 Dose: 500 mls/hr Levofloxacin/Dextrose 500 mg/ (Premix) 100 mls @ 100 mls/hr IV Q24H [facility] Stop: 01/30/17 11:30 Last Admin: 01/30/17 10:55 Dose: 100 mls/hr Ibuprofen (Motrin) 400 mg PO Q6H PRN PRN Reason: Abdominal Pain Lisinopril (Prinivil) 2.5 mg PO DAILY [facility] Lisinopril (Prinivil) 2.5 mg PO DAILY [facility] Last Admin: 01/30/17 11:01 Dose: 2.5 mg Neostigmine Methylsulfate (Neostigmine) Confirm Administered Dose 5 mg .ROUTE .STK-MED ONE Stop: 01/28/17 12:32 Non-Formulary Medication (Cholecalciferol (Vitamin D3) [Vitamin D]) 1,000 unit PO DAILY [facility] Non-Formulary Medication (Fluticasone Propionate [Flonase Allergy Relief]) 2 spray NS DAILY [facility] Non-Formulary Medication (Multivitamin With Minerals [Multiple Vitamin]) 1 tab PO DAILY [facility] Non-Formulary Medication (Multivitamin-Min/Iron/Fa/Vit K [Multi-Day Plus Minerals Tablet]) 1 tab PO DAILY [facility] Non-Formulary Medication (Simvastatin [Simvastatin]) 80 mg PO DAILY [facility] Ondansetron HCl (Zofran) Confirm Administered Dose 4 mg .ROUTE .STK-MED ONE Stop: 01/28/17 12:32 Pantoprazole Sodium (Protonix Iv) 40 mg IVPUSH DAILY [facility] Last Admin: 01/28/17 17:37 Dose: Not Given Propofol (Diprivan 20 Ml) Confirm Administered Dose 200 mg .ROUTE .STK-MED ONE Stop: 01/28/17 12:32 Rocuronium [place] (Zemuron) Confirm Administered Dose 50 mg .ROUTE .STK-MED ONE Stop: 01/28/17 12:32 Scopolamine (Transderm-Scop) Confirm Administered Dose 1.5 mg .ROUTE .STK-MED ONE Stop: 01/28/17 15:15 Scopolamine (Transderm-Scop) 1.5 mg TRDERM Q72H [facility] Last Admin: 01/28/17 17:38 Dose: Not Given Sodium Polystyrene Sulfonate (Kayexalate) 45 gm PO NOW ONE Stop: 01/30/17 08:14 Last Admin: 01/30/17 12:35 Dose: Not Given Sodium Polystyrene Sulfonate (Kayexalate) 45 gm PO NOW ONE Stop: 01/30/17 13:04 Sodium Polystyrene Sulfonate (Kayexalate) 45 gm RECTAL NOW ONE Stop: 01/30/17 13:11 Last Admin: 01/30/17 14:10 Dose: 45 gm Tamsulosin HCl (Flomax) 0.4 mg PO PCBREAKFAST [facility] - Exam Wound/Incisions: healing well, dressing dry and intact General: alert, oriented, cooperative (Was confused earlier today. ), no acute distress Lungs: Clear to auscultation, Normal respiratory effort Cardiovascular: Regular Rate, Regular Rhythm Abdomen: bowel sounds present (Hypoactive. ), soft, no distension Extremities: no edema Skin: warm, dry, intact Neurological: no new focal deficit Psy/Mental Status: alert (He was somnalent earlier today.), normal affect, normal mood - Problem List & Annotations (1) Status post right hemicolectomy SNOMED Code(s): 302188695, 131143111 Code(s): Z90.49 - ACQUIRED ABSENCE OF OTHER SPECIFIED PARTS OF DIGESTIVE TRACT Status: Acute Current Visit: Yes - Problem List Review Problem List Initiated/Reviewed/Updated: Yes - My Orders Last 24 Hours: Active Orders 24 hr Category Date Time Status Cardiac Monitoring [RC] .As Directed Care 01/30/17 09:45 Active Notify Provider Consults [RC] ASDIRECTED Care 01/30/17 07:40 Active BASIC METABOLIC PANEL,BMP [CHEM] AM Lab 01/31/17 05:11 Ordered BASIC METABOLIC PANEL,BMP [CHEM] AM Lab 02/01/17 05:11 Ordered BASIC METABOLIC PANEL,BMP [CHEM] AM Lab 02/02/17 05:11 Ordered BASIC METABOLIC PANEL,BMP [CHEM] AM Lab 02/03/17 05:11 Ordered BASIC METABOLIC PANEL,BMP [CHEM] Stat Lab 01/30/17 17:00 Ordered CBC W/O DIFF,HEMOGRAM [HEME] DAILY Lab 01/31/17 05:10 Ordered CBC W/O DIFF,HEMOGRAM [HEME] DAILY Lab 02/01/17 05:10 Ordered CBC W/O DIFF,HEMOGRAM [HEME] DAILY Lab 02/02/17 05:10 Ordered CBC W/O DIFF,HEMOGRAM [HEME] DAILY Lab 02/03/17 05:10 Ordered CULTURE BLOOD [BC] Stat Lab 01/30/17 10:10 Received CULTURE BLOOD [BC] Stat Lab 01/30/17 10:20 Received Enoxaparin [Lovenox] Med 01/30/17 13:00 Active 30 mg SUBCUT Q24H Levofloxacin/Dextrose 5%-Water [Levaquin in D5W 250 MG/ Med 01/31/17 10:00 Active 50 ML] 250 mg Premix Bag 1 bag IV Q24H Piperacillin/Tazobactam [Zosyn] 2.25 gm Med 01/30/17 11:00 Active Sodium Chloride 0.9% [Normal Saline] 50 ml IV Q6H Scopolamine [Transderm-Scop] Med 01/31/17 10:00 Active 1.5 mg TRDERM Q72H Simvastatin [Zocor] Med 01/29/17 17:00 Active 80 mg PO QPM Sodium Chloride 0.9% [Normal Saline] 1,000 ml Med 01/30/17 13:00 Active IV ASDIRECTED Blood Culture x2 Reflex Set [OM.PC] Urgent Oth 01/30/17 09:43 Ordered Medication Orders Alvimopan (Entereg) 12 mg PO Q12H [facility] Stop: 02/04/17 09:01 Last Admin: 01/30/17 11:48 Dose: 12 mg Admin: 01/29/17 21:07 Dose: 12 mg Admin: 01/29/17 08:57 Dose: 12 mg Admin: 01/28/17 21:05 Dose: 12 mg Atenolol (Tenormin) 50 mg PO DAILY [facility] Last Admin: 01/30/17 11:52 Dose: 50 mg Admin: 01/29/17 08:58 Dose: 50 mg Bisacodyl (Dulcolax) 10 mg PO BID [facility] Last Admin: 01/30/17 11:49 Dose: 10 mg Admin: 01/29/17 21:07 Dose: 10 mg Admin: 01/29/17 08:56 Dose: 10 mg Cetirizine HCl (Zyrtec) 10 mg PO DAILY [facility] Last Admin: 01/30/17 11:48 Dose: 10 mg Admin: 01/29/17 08:56 Dose: 10 mg Cholecalciferol (Vitamin D3) 1,000 units PO DAILY [facility] Last Admin: 01/30/17 12:06 Dose: 1,000 units Admin: 01/29/17 08:57 Dose: 1,000 units Enoxaparin Sodium (Lovenox) 30 mg SUBCUT Q24H [facility] Last Admin: 01/30/17 13:11 Dose: 30 mg Fluticasone Propionate (Flonase) 0 gm NASBOTH DAILY [facility] Last Admin: 01/30/17 12:11 Dose: 2 spray Admin: 01/29/17 08:58 Dose: 1 spray Hydroxyzine HCl (Vistaril) 50 mg IM Q6H PRN PRN Reason: Abdominal Pain Fentanyl 2,500 mcg/ Sodium (Chloride) 250 mls @ 0 mls/hr EPIDUR TITRATE [facility]; Titrate PRN Reason: Protocol Last Titration: 01/30/17 08:19 Dose: 8 ml/hr, 8 mls/hr Titration: 01/30/17 08:15 Dose: 10 ml/hr, 10 mls/hr Admin: 01/30/17 07:48 Dose: 12 ml/hr, 12 mls/hr Titration: 01/30/17 07:48 Dose: 12 ml/hr, 12 mls/hr Admin: 01/29/17 11:48 Dose: 12 ml/hr, 12 mls/hr Piperacillin Sod/Tazobactam (Sod 2.25 gm/ Sodium Chloride) 50 mls @ 100 mls/hr IV Q6H [facility] Last Admin: 01/30/17 16:45 Dose: 100 mls/hr Admin: 01/30/17 11:45 Dose: 100 mls/hr Levofloxacin/Dextrose 250 mg/ (Premix) 50 mls @ 50 mls/hr IV Q24H [facility] Sodium Chloride (Normal Saline) 1,000 mls @ 250 mls/hr IV ASDIRECTED [facility] Multivitamins/Minerals (Thera M Plus) 1 tab PO DAILY [facility] Last Admin: 01/30/17 11:52 Dose: 1 tab Admin: 01/29/17 08:58 Dose: 1 tab Naloxone HCl (Narcan) 0.1 mg IVPUSH Q5M PRN PRN Reason: RESP RATE LESS THAN 6/MINUTE Transderm Scop Patch (Check) 0 each TOP DAILY [facility] Last Admin: 01/30/17 12:00 Dose: Not Given Admin: 01/29/17 08:59 Dose: Ondansetron HCl (Zofran) 4 mg IVPUSH Q6H PRN PRN Reason: Nausea/Vomiting Last Admin: 01/28/17 20:12 Dose: 4 mg Pantoprazole Sodium (Protonix Iv) 40 mg IVPUSH Q24H [facility] Last Admin: 01/29/17 17:12 Dose: 40 mg Admin: 01/28/17 18:17 Dose: 40 mg Scopolamine (Transderm-Scop) 1.5 mg TRDERM Q72H [facility] Senna (Senna) 8.6 mg PO DAILY [facility] Last Admin: 01/30/17 12:06 Dose: 8.6 mg Admin: 01/29/17 08:58 Dose: 8.6 mg Simvastatin (Zocor) 80 mg PO QPM [facility] Last Admin: 01/30/17 16:44 Dose: 80 mg Admin: 01/29/17 17:13 Dose: 80 mg Tamsulosin HCl (Flomax) 0.4 mg PO PCBREAKFAST [facility] Last Admin: 01/30/17 12:13 Dose: 0.4 mg Admin: 01/29/17 09:00 Dose: 0.4 mg Tramadol HCl (Ultram) 50 mg PO Q4H PRN PRN Reason: Abdominal Pain - Assessment Assessment (Free Text/Narrative):: Hperkalemia, hypotension, leukocytosis, low urine output. - Plan Plan (Free Text/Narrative):: Requested hospitalist consult--appreciate his help. Agree with his treatment, plan.
[2017-01-30] MEDS: Pantoprazole 40 MG Vial IVPUSH SCH (18:07)
[2017-01-30] MEDS: Sodium Chloride 0.9% 1,000 ML IV SCH (18:15)
[2017-01-30] MEDS: Albuterol 0.083% 2.5 MG/3 ML Neb Soln NEB PRN (21:10)
[2017-01-31] MEDS: Sodium Chloride 0.9% 1,000 ML IV SCH ×2 (04:27→22:52)
[2017-01-31] MEDS: Piperacillin/Tazobactam 2.25 GM in Sodium Chloride 0.9% 50 ML IV SCH ×4 (04:45→22:49)
[2017-01-31] MEDS: Bisacodyl 5 MG Tab PO SCH ×2 (08:02→20:46)
[2017-01-31] MEDS: Tamsulosin 0.4 MG Cap.ER PO SCH (08:04)
[2017-01-31] MEDS: Atenolol 50 MG Tab PO SCH (08:09)
[2017-01-31] MEDS: Cholecalciferol (Vitamin D3) 1,000 Unit Tab PO SCH (08:10)
[2017-01-31] MEDS: Multivitamins with Iron/Calcium/Folic Acid/Minerals Tab PO SCH (08:10)
[2017-01-31] MEDS: Sennosides 8.6 MG Tab PO SCH (08:11)
[2017-01-31] MEDS: Fluticasone Propionate Nasal Spray 16 GM Bottle NASBOTH SCH (08:15)
[2017-01-31] MEDS: Cetirizine 10 MG Tab PO SCH (08:15)
[2017-01-31] MEDS: TRANSDERM SCOP CHECK TOP SCH (08:16)
--- NOTE | 2017-01-31 09:26 | PCM.CONSN ---
- General Info Date of Service: 01/31/17 Functional Status: Reports: pain controlled, ambulating - Review of Systems General: Reports: Weakness. Denies: Fever, Chills Pulmonary: Reports: no symptoms Cardiovascular: Reports: No Symptoms Gastrointestinal: Reports: Abdominal pain. Denies: Nausea, Vomiting Musculoskeletal: Reports: no symptoms Systems Review Comment:: This patient has improved since yesterday, although he remains mildly to moderately confused, not agitated. Vital signs have been stable and he has remained afebrile. Urine output has improved as has his renal function and potassium level. - Patient Data Vitals - most recent: Last Vital Signs Temp 99.4 F 01/31/17 04:00 Pulse 102 H 01/31/17 08:09 Resp 19 01/31/17 05:58 BP 128/66 01/31/17 08:09 Pulse Ox 94 L 01/31/17 05:58 Weight - most recent: 219 lb 15.988 oz I&O - last 24 hours: Intake & Output 01/30/17 01/31/17 01/31/17 22:59 06:59 14:59 Intake Total 2300 194 Output Total 395 550 Balance 1905 -356 Lab Results last 24 hrs: Laboratory Results - last 24 hr 01/30/17 01/30/17 01/31/17 Range/Units 15:30 17:00 05:48 WBC 9.0 (4.5-11.0) K/uL RBC 3.55 L (4.30-5.90) M/uL Hgb 11.5 L (12.0-15.0) g/dL Hct 34.7 L (40.0-54.0) % MCV 98 (80-98) fL MCH 32 H (27-31) pg MCHC 33 (32-36) % Plt Count 234 (150-400) K/uL Sodium 134 L (140-148) mmol/L Potassium 4.9 (3.6-5.2) mmol/L Chloride 104 (100-108) mmol/L Carbon Dioxide 22 (21-32) mmol/L Anion Gap 12.9 (5.0-14.0) mmol/L BUN 59 H (7-18) mg/dL Creatinine 1.8 H (0.8-1.3) mg/dL Est Cr Clr Drug Dosing 30.18 mL/min Estimated GFR (MDRD) 37 L (>60) Glucose 128 H (74-106) mg/dL Calcium 8.1 L (8.5-10.1) mg/dL Urine Color Yellow Urine Appearance Cloudy Urine pH 5.0 (4.5-8.0) Ur Specific [place] 1.020 (1.008-1.030) Urine Protein Negative (NEGATIVE) mg/dL Urine Glucose (UA) Normal (NEGATIVE) mg/dL Urine Ketones Negative (NEGATIVE) mg/dL Urine Occult Blood Large (NEGATIVE) Urine Nitrite Negative (NEGAITVE) Urine Bilirubin Negative (NEGATIVE) Urine Urobilinogen Normal (NORMAL) mg/dL Ur Leukocyte Esterase Moderate (NEGATIVE) Urine RBC 5-10 H (0-5) Urine WBC 10-20 H (0-5) Ur Epithelial Cells Few Amorphous Sediment Moderate Urine Bacteria Few Urine Mucus Moderate Urine Other See note 01/31/17 Range/Units 05:48 WBC (4.5-11.0) K/uL RBC (4.30-5.90) M/uL Hgb (12.0-15.0) g/dL Hct (40.0-54.0) % MCV (80-98) fL MCH (27-31) pg MCHC (32-36) % Plt Count (150-400) K/uL Sodium 139 L (140-148) mmol/L Potassium 4.5 (3.6-5.2) mmol/L Chloride 106 (100-108) mmol/L Carbon Dioxide 25 (21-32) mmol/L Anion Gap 12.5 (5.0-14.0) mmol/L BUN 55 H (7-18) mg/dL Creatinine 1.4 H (0.8-1.3) mg/dL Est Cr Clr Drug Dosing 38.81 mL/min Estimated GFR (MDRD) 49 L (>60) Glucose 122 H (74-106) mg/dL Calcium 8.3 L (8.5-10.1) mg/dL Urine Color Urine Appearance Urine pH (4.5-8.0) Ur Specific [place] (1.008-1.030) Urine Protein (NEGATIVE) mg/dL Urine Glucose (UA) (NEGATIVE) mg/dL Urine Ketones (NEGATIVE) mg/dL Urine Occult Blood (NEGATIVE) Urine Nitrite (NEGAITVE) Urine Bilirubin (NEGATIVE) Urine Urobilinogen (NORMAL) mg/dL Ur Leukocyte Esterase (NEGATIVE) Urine RBC (0-5) Urine WBC (0-5) Ur Epithelial Cells Amorphous Sediment Urine Bacteria Urine Mucus Urine Other Med Orders - Current: Current Medications Albuterol (Proventil Neb Soln) 2.5 mg NEB Q4H PRN PRN Reason: Wheezing Last Admin: 01/30/17 21:10 Dose: 2.5 mg Alvimopan (Entereg) 12 mg PO Q12H [facility] Stop: 02/04/17 09:01 Last Admin: 01/31/17 08:03 Dose: 12 mg Atenolol (Tenormin) 50 mg PO DAILY [facility] Last Admin: 01/31/17 08:09 Dose: 50 mg Bisacodyl (Dulcolax) 10 mg PO BID [facility] Last Admin: 01/31/17 08:02 Dose: 10 mg Cetirizine HCl (Zyrtec) 10 mg PO DAILY [facility] Last Admin: 01/31/17 08:15 Dose: 10 mg Cholecalciferol (Vitamin D3) 1,000 units PO DAILY [facility] Last Admin: 01/31/17 08:10 Dose: 1,000 units Enoxaparin Sodium (Lovenox) 30 mg SUBCUT Q24H [facility] Last Admin: 01/30/17 13:11 Dose: 30 mg Fluticasone Propionate (Flonase) 0 gm NASBOTH DAILY [facility] Last Admin: 01/31/17 08:15 Dose: 2 spray Hydroxyzine HCl (Vistaril) 50 mg IM Q6H PRN PRN Reason: Abdominal Pain Fentanyl 2,500 mcg/ Sodium (Chloride) 250 mls @ 0 mls/hr EPIDUR TITRATE [facility]; Titrate PRN Reason: Protocol Last Titration: 01/30/17 08:19 Dose: 8 ml/hr, 8 mls/hr Piperacillin Sod/Tazobactam (Sod 2.25 gm/ Sodium Chloride) 50 mls @ 100 mls/hr IV Q6H [facility] Last Admin: 01/31/17 04:45 Dose: 100 mls/hr Levofloxacin/Dextrose 250 mg/ (Premix) 50 mls @ 50 mls/hr IV Q24H [facility] Sodium Chloride (Normal Saline) 1,000 mls @ 50 mls/hr IV ASDIRECTED [facility] Multivitamins/Minerals (Thera M Plus) 1 tab PO DAILY [facility] Last Admin: 01/31/17 08:10 Dose: 1 tab Naloxone HCl (Narcan) 0.1 mg IVPUSH Q5M PRN PRN Reason: RESP RATE LESS THAN 6/MINUTE Transderm Scop Patch (Check) 0 each TOP DAILY [facility] Last Admin: 01/31/17 08:16 Dose: Not Given Ondansetron HCl (Zofran) 4 mg IVPUSH Q6H PRN PRN Reason: Nausea/Vomiting Last Admin: 01/28/17 20:12 Dose: 4 mg Pantoprazole Sodium (Protonix Iv) 40 mg IVPUSH Q24H [facility] Last Admin: 01/30/17 18:07 Dose: 40 mg Scopolamine (Transderm-Scop) 1.5 mg TRDERM Q72H [facility] Senna (Senna) 8.6 mg PO DAILY [facility] Last Admin: 01/31/17 08:11 Dose: 8.6 mg Simvastatin (Zocor) 80 mg PO QPM [facility] Last Admin: 01/30/17 16:44 Dose: 80 mg Tamsulosin HCl (Flomax) 0.4 mg PO PCBREAKFAST [facility] Last Admin: 01/31/17 08:04 Dose: 0.4 mg Tramadol HCl (Ultram) 50 mg PO Q4H PRN PRN Reason: Abdominal Pain Discontinued Medications Alvimopan (Entereg) 12 mg PO ONETIME ONE Stop: 01/28/17 10:16 Last Admin: 01/28/17 12:01 Dose: 12 mg Alvimopan (Entereg) 12 mg PO Q12H [facility] Stop: 02/04/17 04:16 Last Admin: 01/28/17 17:38 Dose: Not Given Atenolol (Tenormin) 50 mg PO DAILY [facility] Cetirizine HCl (Zyrtec) 10 mg PO DAILY [facility] Dexamethasone (Dexamethasone) Confirm Administered Dose 4 mg .ROUTE .STK-MED ONE Stop: 01/28/17 12:32 Enoxaparin Sodium (Lovenox) 40 mg SUBCUT DAILY [facility] Enoxaparin Sodium (Lovenox) 40 mg SUBCUT DAILY [facility] Enoxaparin Sodium (Lovenox) 40 mg SUBCUT DAILY [facility] Last Admin: 01/30/17 12:50 Dose: Not Given Ephedrine Sulfate (Ephedrine Sulfate) Confirm Administered Dose 50 mg .ROUTE .STK-MED ONE Stop: 01/28/17 14:36 Fentanyl (Sublimaze) Confirm Administered Dose 250 mcg .ROUTE .[facility] ONE Stop: 01/28/17 12:32 Fentanyl (Sublimaze) Confirm Administered Dose 250 mcg .ROUTE .K-MED ONE Stop: 01/28/17 14:26 Furosemide (Lasix) 20 mg IVPUSH ONETIME ONE Stop: 01/30/17 01:23 Last Admin: 01/30/17 02:14 Dose: 20 mg Glycopyrrolate () Confirm Administered Dose 1 mg .ROUTE .K-MED ONE Stop: 01/28/17 12:32 Dextrose/Lactated Ringer's (Dextrose 5%-Lactated Ringers) 1,000 mls @ 100 mls/ hr IV ASDIRECTED [facility] Last Admin: 01/28/17 11:32 Dose: 100 mls/hr Cefoxitin Sodium 2 gm/ Sodium (Chloride) 50 mls @ 100 mls/hr IV ONETIME ONE Stop: 01/28/17 13:14 Last Admin: 01/28/17 17:24 Dose: Not Given Sodium Chloride (Normal Saline) Confirm Administered Dose 10 mls @ as directed .ROUTE .[facility] ONE Stop: 01/28/17 14:44 Potassium Chloride/Dextrose/Sod Cl (D5 1/2 Ns W/ 20 Meq/L Kcl) 1,000 mls @ 100 mls/hr IV ASDIRECTED [facility] Last Admin: 01/30/17 04:06 Dose: 100 mls/hr Hetastarch/Sodium Chloride (Hetastarch 6% In Normal Saline) 250 mls @ 250 mls/ hr IV ONETIME ONE Stop: 01/28/17 22:50 Last Admin: 01/28/17 22:26 Dose: 250 mls/hr Lactated Ringer's (Ringers, Lactated) 250 mls @ 250 mls/hr IV .BOLUS [facility] Last Admin: 01/29/17 03:05 Dose: 250 mls/hr Lactated Ringer's (Ringers, Lactated) 250 mls @ 250 mls/hr IV .BOLUS ONE Stop: 01/29/17 07:44 Last Admin: 01/29/17 06:30 Dose: 250 mls/hr Lactated Ringer's (Ringers, Lactated) 250 mls @ 250 mls/hr IV ONETIME ONE Stop: 01/29/17 17:59 Last Admin: 01/29/17 16:30 Dose: 250 mls/hr Lactated Ringer's (Ringers, Lactated) 500 mls @ 500 mls/hr IV BOLUS ONE Stop: 01/29/17 21:58 Last Admin: 01/29/17 21:12 Dose: 500 mls/hr Dextrose/Sodium Chloride (Dextrose 5%-1/2 Ns) 1,000 mls @ 100 mls/hr IV ASDIRECTED [facility] Last Admin: 01/30/17 07:57 Dose: 100 mls/hr Sodium Chloride (Normal Saline) 1,000 mls @ 500 mls/hr IV ASDIRECTED [facility] Stop: 01/30/17 10:16 Last Admin: 01/30/17 08:42 Dose: 500 mls/hr Levofloxacin/Dextrose 500 mg/ (Premix) 100 mls @ 100 mls/hr IV Q24H [facility] Stop: 01/30/17 11:30 Last Admin: 01/30/17 10:55 Dose: 100 mls/hr Sodium Chloride (Normal Saline) 1,000 mls @ 250 mls/hr IV ASDIRECTED [facility] Sodium Chloride (Normal Saline) 1,000 mls @ 100 mls/hr IV ASDIRECTED [facility] Last Admin: 01/31/17 04:27 Dose: 100 mls/hr Ibuprofen (Motrin) 400 mg PO Q6H PRN PRN Reason: Abdominal Pain Lisinopril (Prinivil) 2.5 mg PO DAILY [facility] Lisinopril (Prinivil) 2.5 mg PO DAILY [facility] Last Admin: 01/30/17 11:01 Dose: 2.5 mg Neostigmine Methylsulfate (Neostigmine) Confirm Administered Dose 5 mg .ROUTE .STK-MED ONE Stop: 01/28/17 12:32 Non-Formulary Medication (Cholecalciferol (Vitamin D3) [Vitamin D]) 1,000 unit PO DAILY [facility] Non-Formulary Medication (Fluticasone Propionate [Flonase Allergy Relief]) 2 spray NS DAILY [facility] Non-Formulary Medication (Multivitamin With Minerals [Multiple Vitamin]) 1 tab PO DAILY [facility] Non-Formulary Medication (Multivitamin-Min/Iron/Fa/Vit K [Multi-Day Plus Minerals Tablet]) 1 tab PO DAILY [facility] Non-Formulary Medication (Simvastatin [Simvastatin]) 80 mg PO DAILY [facility] Ondansetron HCl (Zofran) Confirm Administered Dose 4 mg .ROUTE .STK-MED ONE Stop: 01/28/17 12:32 Pantoprazole Sodium (Protonix Iv) 40 mg IVPUSH DAILY [facility] Last Admin: 01/28/17 17:37 Dose: Not Given Propofol (Diprivan 20 Ml) Confirm Administered Dose 200 mg .ROUTE .STK-MED ONE Stop: 01/28/17 12:32 Rocuronium [place] (Zemuron) Confirm Administered Dose 50 mg .ROUTE .STK-MED ONE Stop: 01/28/17 12:32 Scopolamine (Transderm-Scop) Confirm Administered Dose 1.5 mg .ROUTE .STK-MED ONE Stop: 01/28/17 15:15 Scopolamine (Transderm-Scop) 1.5 mg TRDERM Q72H [facility] Last Admin: 01/28/17 17:38 Dose: Not Given Sodium Polystyrene Sulfonate (Kayexalate) 45 gm PO NOW ONE Stop: 01/30/17 08:14 Last Admin: 01/30/17 12:35 Dose: Not Given Sodium Polystyrene Sulfonate (Kayexalate) 45 gm PO NOW ONE Stop: 01/30/17 13:04 Last Admin: 01/31/17 07:49 Dose: Not Given Sodium Polystyrene Sulfonate (Kayexalate) 45 gm RECTAL NOW ONE Stop: 01/30/17 13:11 Last Admin: 01/30/17 14:10 Dose: 45 gm Tamsulosin HCl (Flomax) 0.4 mg PO PCBREAKFAST [facility] - Exam Quality Assessment: DVT prophylaxis General: alert, cooperative, no acute distress Lungs: Clear to auscultation, Normal respiratory effort Cardiovascular: Regular Rate, Regular Rhythm, No Murmurs Abdomen: bowel sounds present, soft, no distension, tenderness. No: rigidity, rebound, guarding Extremities: edema Skin: warm, dry, intact Consult PN Assessment/Plan Procedures: Procedures BLOOD TYPING SEROLOGIC ABO (01/14/17) BLOOD TYPING SEROLOGIC RH(D) (01/14/17) CARCINOEMBRYONIC ANTIGEN (01/14/17) COLONOSCOPY AND BIOPSY (01/14/17) COMPLETE CBC AUTOMATED (01/14/17) COMPREHEN METABOLIC PANEL (01/14/17) PT EVALUATION (11/29/15) RBC ANTIBODY SCREEN (01/14/17) ROUTINE VENIPUNCTURE (01/14/17) THERAPEUTIC EXERCISES (11/29/15) TISSUE EXAM BY PATHOLOGIST (01/14/17) Problem List Initiated/Reviewed/Updated: Yes My Orders last 24 hours: My Active Orders 01/30/17 09:43 Blood Culture x2 Reflex Set [OM.PC] Urgent 01/30/17 09:45 Cardiac Monitoring [RC] .As Directed 01/30/17 10:10 CULTURE BLOOD [BC] Stat 01/30/17 10:20 CULTURE BLOOD [BC] Stat 01/30/17 11:00 Piperacillin/Tazobactam [Zosyn] 2.25 gm Sodium Chloride 0.9% [Normal Saline] 50 ml IV Q6H 01/30/17 20:57 RT Aerosol Therapy [RC] ASDIRECTED Albuterol [Proventil Neb Soln] 2.5 mg NEB Q4H PRN 01/31/17 09:13 Consult to Physical Therapy [PT Evaluation and Treatment] [CONS] Routine 01/31/17 09:15 Sodium Chloride 0.9% @ 50 MLS/HR(1000ml) Sodium Chloride 0.9% [Normal Saline] 1 ,000 ml IV ASDIRECTED 01/31/17 10:00 Levofloxacin/Dextrose 5%-Water [Levaquin in D5W 250 MG/50 ML] 250 mg Premix Bag 1 bag IV Q24H Plan: ASSESSMENT AND RECOMMENDATIONS STATUS POST RIGHT HEMICOLECTOMY FOR CECAL MASS -Ongoing postoperative care per Dr. Mazariegos INTERMITTENT HYPOTENSION-resolved after IV fluid resuscitation -Decrease IV rate to 50 mL per hour -Monitor in ICU ACUTE ON CHRONIC RENAL INSUFFICIENCY-at baseline has stage III chronic kidney disease. Improved following IV fluid resuscitation. -Closely monitor urine output and renal function -IV fluid resuscitation as above -Hold lisinopril and diuretic therapy HYPERKALEMIA-resolved -Cardiac monitoring -Repeat potassium level in a.m. LEUKOCYTOSIS-resolved, remains on IV antibiotics, culture pending -Blood cultures pending -Empiric IV antibiotic therapy with Zosyn and levofloxacin pending culture results DELIRIUM-currently not agitated, mildly to moderately confused. Family denies any cognitive impairment at baseline -Melatonin 9 mg by mouth each bedtime -Depakote 250 mg by mouth twice a day
[2017-01-31] MEDS: Scopolamine 1.5 MG Transdermal Patch TRDERM SCH (09:27)
[2017-01-31] MEDS: Levofloxacin/Dextrose 5%-Water 250 MG in Premix Bag 1 BAG IV SCH (09:28)
--- NOTE | 2017-01-31 10:45 | PCM.SURGPN ---
- General Info Date of Service: 01/31/17 Date of Surgery/Procedure: 01/28/17 POD#: 3 Functional Status: Reports: pain controlled, tolerating diet, ambulating, urinating ([place]), incentive spirometry - Review of Systems General: Reports: No Symptoms HEENT: Reports: no symptoms Pulmonary: Reports: no symptoms Cardiovascular: Reports: No Symptoms Gastrointestinal: Reports: No symptoms, Flatus Genitourinary: Reports: no symptoms Musculoskeletal: Reports: no symptoms Skin: Reports: no symptoms Neurological: Reports: No Symptoms Psychiatric: Reports: no symptoms - Patient Data Vitals - most recent: Last Vital Signs Temp 99.4 F 01/31/17 04:00 Pulse 102 H 01/31/17 08:09 Resp 19 01/31/17 05:58 BP 128/66 01/31/17 08:09 Pulse Ox 94 L 01/31/17 05:58 Weight - most recent: 219 lb 15.988 oz I&O - last 24 hours: Intake & Output 01/30/17 01/31/17 01/31/17 22:59 06:59 14:59 Intake Total 2300 194 Output Total 395 550 Balance 1905 -356 Lab Results last 24 hrs: Laboratory Results - last 24 hr 01/30/17 01/30/17 01/31/17 Range/Units 15:30 17:00 05:48 WBC 9.0 (4.5-11.0) K/uL RBC 3.55 L (4.30-5.90) M/uL Hgb 11.5 L (12.0-15.0) g/dL Hct 34.7 L (40.0-54.0) % MCV 98 (80-98) fL MCH 32 H (27-31) pg MCHC 33 (32-36) % Plt Count 234 (150-400) K/uL Sodium 134 L (140-148) mmol/L Potassium 4.9 (3.6-5.2) mmol/L Chloride 104 (100-108) mmol/L Carbon Dioxide 22 (21-32) mmol/L Anion Gap 12.9 (5.0-14.0) mmol/L BUN 59 H (7-18) mg/dL Creatinine 1.8 H (0.8-1.3) mg/dL Est Cr Clr Drug Dosing 30.18 mL/min Estimated GFR (MDRD) 37 L (>60) Glucose 128 H (74-106) mg/dL Calcium 8.1 L (8.5-10.1) mg/dL Urine Color Yellow Urine Appearance Cloudy Urine pH 5.0 (4.5-8.0) Ur Specific [place] 1.020 (1.008-1.030) Urine Protein Negative (NEGATIVE) mg/dL Urine Glucose (UA) Normal (NEGATIVE) mg/dL Urine Ketones Negative (NEGATIVE) mg/dL Urine Occult Blood Large (NEGATIVE) Urine Nitrite Negative (NEGAITVE) Urine Bilirubin Negative (NEGATIVE) Urine Urobilinogen Normal (NORMAL) mg/dL Ur Leukocyte Esterase Moderate (NEGATIVE) Urine RBC 5-10 H (0-5) Urine WBC 10-20 H (0-5) Ur Epithelial Cells Few Amorphous Sediment Moderate Urine Bacteria Few Urine Mucus Moderate Urine Other See note 01/31/17 Range/Units 05:48 WBC (4.5-11.0) K/uL RBC (4.30-5.90) M/uL Hgb (12.0-15.0) g/dL Hct (40.0-54.0) % MCV (80-98) fL MCH (27-31) pg MCHC (32-36) % Plt Count (150-400) K/uL Sodium 139 L (140-148) mmol/L Potassium 4.5 (3.6-5.2) mmol/L Chloride 106 (100-108) mmol/L Carbon Dioxide 25 (21-32) mmol/L Anion Gap 12.5 (5.0-14.0) mmol/L BUN 55 H (7-18) mg/dL Creatinine 1.4 H (0.8-1.3) mg/dL Est Cr Clr Drug Dosing 38.81 mL/min Estimated GFR (MDRD) 49 L (>60) Glucose 122 H (74-106) mg/dL Calcium 8.3 L (8.5-10.1) mg/dL Urine Color Urine Appearance Urine pH (4.5-8.0) Ur Specific [place] (1.008-1.030) Urine Protein (NEGATIVE) mg/dL Urine Glucose (UA) (NEGATIVE) mg/dL Urine Ketones (NEGATIVE) mg/dL Urine Occult Blood (NEGATIVE) Urine Nitrite (NEGAITVE) Urine Bilirubin (NEGATIVE) Urine Urobilinogen (NORMAL) mg/dL Ur Leukocyte Esterase (NEGATIVE) Urine RBC (0-5) Urine WBC (0-5) Ur Epithelial Cells Amorphous Sediment Urine Bacteria Urine Mucus Urine Other Slick Results last 24 hrs: Microbiology 01/30/17 10:20 Aerobic Blood Culture - Preliminary Blood - Arm, Left NO GROWTH AFTER 1 DAY Anaerobic Blood Culture - Preliminary NO GROWTH AFTER 1 DAY 01/30/17 10:10 Aerobic Blood Culture - Preliminary Blood - Arm, Left NO GROWTH AFTER 1 DAY Anaerobic Blood Culture - Preliminary NO GROWTH AFTER 1 DAY Med Orders - Current: Current Medications Hydrocodone Bitart/Acetaminophen ([place] 325-5 Mg) 1 tab PO Q4H PRN PRN Reason: Abdominal Pain Albuterol (Proventil Neb Soln) 2.5 mg NEB Q4H PRN PRN Reason: Wheezing Last Admin: 01/30/17 21:10 Dose: 2.5 mg Alvimopan (Entereg) 12 mg PO Q12H PENDING SALE TO [facility] Stop: 02/04/17 09:01 Last Admin: 01/31/17 08:03 Dose: 12 mg Atenolol (Tenormin) 50 mg PO DAILY PENDING SALE TO [facility] Last Admin: 01/31/17 08:09 Dose: 50 mg Bisacodyl (Dulcolax) 10 mg PO BID PENDING SALE TO [facility] Last Admin: 01/31/17 08:02 Dose: 10 mg Cetirizine HCl (Zyrtec) 10 mg PO DAILY PENDING SALE TO [facility] Last Admin: 01/31/17 08:15 Dose: 10 mg Cholecalciferol (Vitamin D3) 1,000 units PO DAILY PENDING SALE TO [facility] Last Admin: 01/31/17 08:10 Dose: 1,000 units Divalproex Sodium (Divalproex Sodium) 250 mg PO BIDMEALS PENDING SALE TO [facility] Enoxaparin Sodium (Lovenox) 30 mg SUBCUT Q24H PENDING SALE TO [facility] Last Admin: 01/30/17 13:11 Dose: 30 mg Fluticasone Propionate (Flonase) 0 gm NASBOTH DAILY PENDING SALE TO [facility] Last Admin: 01/31/17 08:15 Dose: 2 spray Hydroxyzine HCl (Vistaril) 50 mg IM Q6H PRN PRN Reason: Abdominal Pain Fentanyl 2,500 mcg/ Sodium (Chloride) 250 mls @ 0 mls/hr EPIDUR TITRATE CHANA; Titrate PRN Reason: Protocol Last Titration: 01/30/17 08:19 Dose: 8 ml/hr, 8 mls/hr Piperacillin Sod/Tazobactam (Sod 2.25 gm/ Sodium Chloride) 50 mls @ 100 mls/hr IV Q6H PENDING SALE TO [facility] Last Admin: 01/31/17 04:45 Dose: 100 mls/hr Levofloxacin/Dextrose 250 mg/ (Premix) 50 mls @ 50 mls/hr IV Q24H PENDING SALE TO [facility] Last Admin: 01/31/17 09:28 Dose: 50 mls/hr Sodium Chloride (Normal Saline) 1,000 mls @ 50 mls/hr IV ASDIRECTED PENDING SALE TO [facility] Melatonin (Melatonin) 9 mg PO BEDTIME PENDING SALE TO [facility] Multivitamins/Minerals (Thera M Plus) 1 tab PO DAILY PENDING SALE TO [facility] Last Admin: 01/31/17 08:10 Dose: 1 tab Naloxone HCl (Narcan) 0.1 mg IVPUSH Q5M PRN PRN Reason: RESP RATE LESS THAN 6/MINUTE Transderm Scop Patch (Check) 0 each TOP DAILY PENDING SALE TO [facility] Last Admin: 01/31/17 08:16 Dose: Not Given Ondansetron HCl (Zofran) 4 mg IVPUSH Q6H PRN PRN Reason: Nausea/Vomiting Last Admin: 01/28/17 20:12 Dose: 4 mg Pantoprazole Sodium (Protonix Iv) 40 mg IVPUSH Q24H PENDING SALE TO [facility] Last Admin: 01/30/17 18:07 Dose: 40 mg Scopolamine (Transderm-Scop) 1.5 mg TRDERM Q72H PENDING SALE TO [facility] Last Admin: 01/31/17 09:27 Dose: 1.5 mg Senna (Senna) 8.6 mg PO DAILY PENDING SALE TO [facility] Last Admin: 01/31/17 08:11 Dose: 8.6 mg Simvastatin (Zocor) 80 mg PO QPM PENDING SALE TO [facility] Last Admin: 01/30/17 16:44 Dose: 80 mg Tamsulosin HCl (Flomax) 0.4 mg PO PCBREAKFAST PENDING SALE TO [facility] Last Admin: 01/31/17 08:04 Dose: 0.4 mg Tramadol HCl (Ultram) 50 mg PO Q4H PRN PRN Reason: Abdominal Pain Discontinued Medications Alvimopan (Entereg) 12 mg PO ONETIME ONE Stop: 01/28/17 10:16 Last Admin: 01/28/17 12:01 Dose: 12 mg Alvimopan (Entereg) 12 mg PO Q12H PENDING SALE TO [facility] Stop: 02/04/17 04:16 Last Admin: 01/28/17 17:38 Dose: Not Given Atenolol (Tenormin) 50 mg PO DAILY PENDING SALE TO [facility] Cetirizine HCl (Zyrtec) 10 mg PO DAILY PENDING SALE TO [facility] Dexamethasone (Dexamethasone) Confirm Administered Dose 4 mg .ROUTE .STK-MED ONE Stop: 01/28/17 12:32 Enoxaparin Sodium (Lovenox) 40 mg SUBCUT DAILY PENDING SALE TO [facility] Enoxaparin Sodium (Lovenox) 40 mg SUBCUT DAILY PENDING SALE TO [facility] Enoxaparin Sodium (Lovenox) 40 mg SUBCUT DAILY PENDING SALE TO [facility] Last Admin: 01/30/17 12:50 Dose: Not Given Ephedrine Sulfate (Ephedrine Sulfate) Confirm Administered Dose 50 mg .ROUTE .STK-[facility] ONE Stop: 01/28/17 14:36 Fentanyl (Sublimaze) Confirm Administered Dose 250 mcg .ROUTE .RUST-[facility] ONE Stop: 01/28/17 12:32 Fentanyl (Sublimaze) Confirm Administered Dose 250 mcg .ROUTE .RUST-[facility] ONE Stop: 01/28/17 14:26 Furosemide (Lasix) 20 mg IVPUSH ONETIME ONE Stop: 01/30/17 01:23 Last Admin: 01/30/17 02:14 Dose: 20 mg Glycopyrrolate () Confirm Administered Dose 1 mg .ROUTE .ST-[facility] ONE Stop: 01/28/17 12:32 Dextrose/Lactated Ringer's (Dextrose 5%-Lactated Ringers) 1,000 mls @ 100 mls/ hr IV ASDIRECTED PENDING SALE TO [facility] Last Admin: 01/28/17 11:32 Dose: 100 mls/hr Cefoxitin Sodium 2 gm/ Sodium (Chloride) 50 mls @ 100 mls/hr IV ONETIME ONE Stop: 01/28/17 13:14 Last Admin: 01/28/17 17:24 Dose: Not Given Sodium Chloride (Normal Saline) Confirm Administered Dose 10 mls @ as directed .ROUTE .STK-[facility] ONE Stop: 01/28/17 14:44 Potassium Chloride/Dextrose/Sod Cl (D5 1/2 Ns W/ 20 Meq/L Kcl) 1,000 mls @ 100 mls/hr IV ASDIRECTED PENDING SALE TO [facility] Last Admin: 01/30/17 04:06 Dose: 100 mls/hr Hetastarch/Sodium Chloride (Hetastarch 6% In Normal Saline) 250 mls @ 250 mls/ hr IV ONETIME ONE Stop: 01/28/17 22:50 Last Admin: 01/28/17 22:26 Dose: 250 mls/hr Lactated Ringer's (Ringers, Lactated) 250 mls @ 250 mls/hr IV .BOLUS CHANA Last Admin: 01/29/17 03:05 Dose: 250 mls/hr Lactated Ringer's (Ringers, Lactated) 250 mls @ 250 mls/hr IV .BOLUS ONE Stop: 01/29/17 07:44 Last Admin: 01/29/17 06:30 Dose: 250 mls/hr Lactated Ringer's (Ringers, Lactated) 250 mls @ 250 mls/hr IV ONETIME ONE Stop: 01/29/17 17:59 Last Admin: 01/29/17 16:30 Dose: 250 mls/hr Lactated Ringer's (Ringers, Lactated) 500 mls @ 500 mls/hr IV BOLUS ONE Stop: 01/29/17 21:58 Last Admin: 01/29/17 21:12 Dose: 500 mls/hr Dextrose/Sodium Chloride (Dextrose 5%-1/2 Ns) 1,000 mls @ 100 mls/hr IV ASDIRECTED PENDING SALE TO [facility] Last Admin: 01/30/17 07:57 Dose: 100 mls/hr Sodium Chloride (Normal Saline) 1,000 mls @ 500 mls/hr IV ASDIRECTED PENDING SALE TO [facility] Stop: 01/30/17 10:16 Last Admin: 01/30/17 08:42 Dose: 500 mls/hr Levofloxacin/Dextrose 500 mg/ (Premix) 100 mls @ 100 mls/hr IV Q24H PENDING SALE TO [facility] Stop: 01/30/17 11:30 Last Admin: 01/30/17 10:55 Dose: 100 mls/hr Sodium Chloride (Normal Saline) 1,000 mls @ 250 mls/hr IV ASDIRECTED PENDING SALE TO [facility] Sodium Chloride (Normal Saline) 1,000 mls @ 100 mls/hr IV ASDIRECTED PENDING SALE TO [facility] Last Admin: 01/31/17 04:27 Dose: 100 mls/hr Ibuprofen (Motrin) 400 mg PO Q6H PRN PRN Reason: Abdominal Pain Lisinopril (Prinivil) 2.5 mg PO DAILY PENDING SALE TO [facility] Lisinopril (Prinivil) 2.5 mg PO DAILY PENDING SALE TO [facility] Last Admin: 01/30/17 11:01 Dose: 2.5 mg Neostigmine Methylsulfate (Neostigmine) Confirm Administered Dose 5 mg .ROUTE .STK-MED ONE Stop: 01/28/17 12:32 Non-Formulary Medication (Cholecalciferol (Vitamin D3) [Vitamin D]) 1,000 unit PO DAILY PENDING SALE TO [facility] Non-Formulary Medication (Fluticasone Propionate [Flonase Allergy Relief]) 2 spray NS DAILY PENDING SALE TO [facility] Non-Formulary Medication (Multivitamin With Minerals [Multiple Vitamin]) 1 tab PO DAILY PENDING SALE TO [facility] Non-Formulary Medication (Multivitamin-Min/Iron/Fa/Vit K [Multi-Day Plus Minerals Tablet]) 1 tab PO DAILY PENDING SALE TO [facility] Non-Formulary Medication (Simvastatin [Simvastatin]) 80 mg PO DAILY PENDING SALE TO [facility] Ondansetron HCl (Zofran) Confirm Administered Dose 4 mg .ROUTE .RUST-MED ONE Stop: 01/28/17 12:32 Pantoprazole Sodium (Protonix Iv) 40 mg IVPUSH DAILY PENDING SALE TO [facility] Last Admin: 01/28/17 17:37 Dose: Not Given Propofol (Diprivan 20 Ml) Confirm Administered Dose 200 mg .ROUTE .ST-MED ONE Stop: 01/28/17 12:32 Rocuronium [place] (Zemuron) Confirm Administered Dose 50 mg .ROUTE .STK-MED ONE Stop: 01/28/17 12:32 Scopolamine (Transderm-Scop) Confirm Administered Dose 1.5 mg .ROUTE .RUST-MED ONE Stop: 01/28/17 15:15 Scopolamine (Transderm-Scop) 1.5 mg TRDERM Q72H PENDING SALE TO [facility] Last Admin: 01/28/17 17:38 Dose: Not Given Sodium Polystyrene Sulfonate (Kayexalate) 45 gm PO NOW ONE Stop: 01/30/17 08:14 Last Admin: 01/30/17 12:35 Dose: Not Given Sodium Polystyrene Sulfonate (Kayexalate) 45 gm PO NOW ONE Stop: 01/30/17 13:04 Last Admin: 01/31/17 07:49 Dose: Not Given Sodium Polystyrene Sulfonate (Kayexalate) 45 gm RECTAL NOW ONE Stop: 01/30/17 13:11 Last Admin: 01/30/17 14:10 Dose: 45 gm Tamsulosin HCl (Flomax) 0.4 mg PO PCBREAKFAST CHANA - Exam Wound/Incisions: healing well, no drainage General: alert, cooperative, no acute distress. No: oriented (Pleasantly confused. ) Lungs: Clear to auscultation, Normal respiratory effort Cardiovascular: Regular Rate, Regular Rhythm Abdomen: bowel sounds present, soft, no tenderness, no distension Extremities: edema Skin: warm, dry, intact Neurological: no new focal deficit Psy/Mental Status: alert, normal affect, normal mood - Problem List & Annotations (1) Status post right hemicolectomy SNOMED Code(s): 292754166, 414475326 Code(s): Z90.49 - ACQUIRED ABSENCE OF OTHER SPECIFIED PARTS OF DIGESTIVE TRACT Status: Acute Current Visit: Yes - Problem List Review Problem List Initiated/Reviewed/Updated: Yes - My Orders Last 24 Hours: Active Orders 24 hr Category Date Time Status Cardiac Monitoring [RC] .As Directed Care 01/30/17 09:45 Active RT Aerosol Therapy [RC] ASDIRECTED Care 01/30/17 20:57 Active Consult to Physical Therapy [PT Evaluation and Cons 01/31/17 09:13 Active Treatment] [CONS] Routine BASIC METABOLIC PANEL,BMP [CHEM] AM Lab 02/01/17 05:11 Ordered BASIC METABOLIC PANEL,BMP [CHEM] AM Lab 02/02/17 05:11 Ordered BASIC METABOLIC PANEL,BMP [CHEM] AM Lab 02/03/17 05:11 Ordered CBC W/O DIFF,HEMOGRAM [HEME] DAILY Lab 02/01/17 05:10 Ordered CBC W/O DIFF,HEMOGRAM [HEME] DAILY Lab 02/02/17 05:10 Ordered CBC W/O DIFF,HEMOGRAM [HEME] DAILY Lab 02/03/17 05:10 Ordered CULTURE BLOOD [BC] Stat Lab 01/30/17 10:10 Results CULTURE BLOOD [BC] Stat Lab 01/30/17 10:20 Results Acetaminophen/HYDROcodone [[place] 325-5 MG] Med 01/31/17 10:40 Ordered 1 tab PO Q4H PRN Albuterol [Proventil Neb Soln] Med 01/30/17 20:57 Active 2.5 mg NEB Q4H PRN Divalproex Sodium Med 01/31/17 17:00 Active 250 mg PO BIDMEALS Enoxaparin [Lovenox] Med 01/30/17 13:00 Active 30 mg SUBCUT Q24H Levofloxacin/Dextrose 5%-Water [Levaquin in D5W 250 MG/ Med 01/31/17 10:00 Active 50 ML] 250 mg Premix Bag 1 bag IV Q24H Melatonin Med 01/31/17 21:00 Active 9 mg PO BEDTIME Piperacillin/Tazobactam [Zosyn] 2.25 gm Med 01/30/17 11:00 Active Sodium Chloride 0.9% [Normal Saline] 50 ml IV Q6H Scopolamine [Transderm-Scop] Med 01/31/17 10:00 Active 1.5 mg TRDERM Q72H Sodium Chloride 0.9% [Normal Saline] 1,000 ml Med 01/31/17 09:15 Active IV ASDIRECTED Medication Orders Hydrocodone Bitart/Acetaminophen ([place] 325-5 Mg) 1 tab PO Q4H PRN PRN Reason: Abdominal Pain Albuterol (Proventil Neb Soln) 2.5 mg NEB Q4H PRN PRN Reason: Wheezing Last Admin: 01/30/17 21:10 Dose: 2.5 mg Alvimopan (Entereg) 12 mg PO Q12H PENDING SALE TO [facility] Stop: 02/04/17 09:01 Last Admin: 01/31/17 08:03 Dose: 12 mg Admin: 01/30/17 20:47 Dose: 12 mg Admin: 01/30/17 11:48 Dose: 12 mg Admin: 01/29/17 21:07 Dose: 12 mg Admin: 01/29/17 08:57 Dose: 12 mg Admin: 01/28/17 21:05 Dose: 12 mg Atenolol (Tenormin) 50 mg PO DAILY PENDING SALE TO [facility] Last Admin: 01/31/17 08:09 Dose: 50 mg Admin: 01/30/17 11:52 Dose: 50 mg Admin: 01/29/17 08:58 Dose: 50 mg Bisacodyl (Dulcolax) 10 mg PO BID PENDING SALE TO [facility] Last Admin: 01/31/17 08:02 Dose: 10 mg Admin: 01/30/17 20:46 Dose: 10 mg Admin: 01/30/17 11:49 Dose: 10 mg Admin: 01/29/17 21:07 Dose: 10 mg Admin: 01/29/17 08:56 Dose: 10 mg Cetirizine HCl (Zyrtec) 10 mg PO DAILY PENDING SALE TO [facility] Last Admin: 01/31/17 08:15 Dose: 10 mg Admin: 01/30/17 11:48 Dose: 10 mg Admin: 01/29/17 08:56 Dose: 10 mg Cholecalciferol (Vitamin D3) 1,000 units PO DAILY PENDING SALE TO [facility] Last Admin: 01/31/17 08:10 Dose: 1,000 units Admin: 01/30/17 12:06 Dose: 1,000 units Admin: 01/29/17 08:57 Dose: 1,000 units Divalproex Sodium (Divalproex Sodium) 250 mg PO BIDMEALS PENDING SALE TO [facility] Enoxaparin Sodium (Lovenox) 30 mg SUBCUT Q24H PENDING SALE TO [facility] Last Admin: 01/30/17 13:11 Dose: 30 mg Fluticasone Propionate (Flonase) 0 gm NASBOTH DAILY PENDING SALE TO [facility] Last Admin: 01/31/17 08:15 Dose: 2 spray Admin: 01/30/17 12:11 Dose: 2 spray Admin: 01/29/17 08:58 Dose: 1 spray Hydroxyzine HCl (Vistaril) 50 mg IM Q6H PRN PRN Reason: Abdominal Pain Fentanyl 2,500 mcg/ Sodium (Chloride) 250 mls @ 0 mls/hr EPIDUR TITRATE CHANA; Titrate PRN Reason: Protocol Last Titration: 01/30/17 08:19 Dose: 8 ml/hr, 8 mls/hr Titration: 01/30/17 08:15 Dose: 10 ml/hr, 10 mls/hr Admin: 01/30/17 07:48 Dose: 12 ml/hr, 12 mls/hr Titration: 01/30/17 07:48 Dose: 12 ml/hr, 12 mls/hr Admin: 01/29/17 11:48 Dose: 12 ml/hr, 12 mls/hr Piperacillin Sod/Tazobactam (Sod 2.25 gm/ Sodium Chloride) 50 mls @ 100 mls/hr IV Q6H PENDING SALE TO [facility] Last Admin: 01/31/17 04:45 Dose: 100 mls/hr Admin: 01/30/17 22:47 Dose: 100 mls/hr Admin: 01/30/17 16:45 Dose: 100 mls/hr Admin: 01/30/17 11:45 Dose: 100 mls/hr Levofloxacin/Dextrose 250 mg/ (Premix) 50 mls @ 50 mls/hr IV Q24H PENDING SALE TO [facility] Last Admin: 01/31/17 09:28 Dose: 50 mls/hr Sodium Chloride (Normal Saline) 1,000 mls @ 50 mls/hr IV ASDIRECTED PENDING SALE TO [facility] Melatonin (Melatonin) 9 mg PO BEDTIME PENDING SALE TO [facility] Multivitamins/Minerals (Thera M Plus) 1 tab PO DAILY PENDING SALE TO [facility] Last Admin: 01/31/17 08:10 Dose: 1 tab Admin: 01/30/17 11:52 Dose: 1 tab Admin: 01/29/17 08:58 Dose: 1 tab Naloxone HCl (Narcan) 0.1 mg IVPUSH Q5M PRN PRN Reason: RESP RATE LESS THAN 6/MINUTE Transderm Scop Patch (Check) 0 each TOP DAILY PENDING SALE TO [facility] Last Admin: 01/31/17 08:16 Dose: Admin: 01/30/17 12:00 Dose: Not Given Admin: 01/29/17 08:59 Dose: Ondansetron HCl (Zofran) 4 mg IVPUSH Q6H PRN PRN Reason: Nausea/Vomiting Last Admin: 01/28/17 20:12 Dose: 4 mg Pantoprazole Sodium (Protonix Iv) 40 mg IVPUSH Q24H PENDING SALE TO [facility] Last Admin: 01/30/17 18:07 Dose: 40 mg Admin: 01/29/17 17:12 Dose: 40 mg Admin: 01/28/17 18:17 Dose: 40 mg Scopolamine (Transderm-Scop) 1.5 mg TRDERM Q72H PENDING SALE TO [facility] Last Admin: 01/31/17 09:27 Dose: 1.5 mg Senna (Senna) 8.6 mg PO DAILY PENDING SALE TO [facility] Last Admin: 01/31/17 08:11 Dose: 8.6 mg Admin: 01/30/17 12:06 Dose: 8.6 mg Admin: 01/29/17 08:58 Dose: 8.6 mg Simvastatin (Zocor) 80 mg PO QPM PENDING SALE TO [facility] Last Admin: 01/30/17 16:44 Dose: 80 mg Admin: 01/29/17 17:13 Dose: 80 mg Tamsulosin HCl (Flomax) 0.4 mg PO PCBREAKFAST PENDING SALE TO [facility] Last Admin: 01/31/17 08:04 Dose: 0.4 mg Admin: 01/30/17 12:13 Dose: 0.4 mg Admin: 01/29/17 09:00 Dose: 0.4 mg Tramadol HCl (Ultram) 50 mg PO Q4H PRN PRN Reason: Abdominal Pain - Assessment Assessment (Free Text/Narrative):: Slow recovery. He is doing better. Walking with assistance of physical therapy. - Plan Plan (Free Text/Narrative):: D/C epidural. Oral pain medication. Remove Salas 12 hours after epidural removal. No Lovenox within 12 hours of epidural removal.
[2017-01-31] MEDS: Acetaminophen/HYDROcodone 325-5 MG Tab PO PRN ×2 (11:30→17:10)
[2017-01-31] MEDS: Simvastatin 20 MG Tab PO SCH (16:25)
[2017-01-31] MEDS: Divalproex Sodium Delayed-Release 250 MG Tab.CR PO SCH (16:25)
[2017-01-31] MEDS: Pantoprazole 40 MG Vial IVPUSH SCH (17:11)
[2017-01-31] MEDS: Melatonin 3 MG Tab PO SCH (20:48)
[2017-01-31] MEDS: Enoxaparin 30 MG/0.3 ML Syringe SUBCUT SCH (22:53)
[2017-01-31] MEDS ORDERED: Lidocaine 2% Jelly 10 ML Urojet ONE (23:13)
[2017-02-01] MEDS: Albuterol 0.083% 2.5 MG/3 ML Neb Soln NEB PRN (00:59)
[2017-02-01] MEDS: Acetaminophen/HYDROcodone 325-5 MG Tab PO PRN (01:04)
[2017-02-01] MEDS: Piperacillin/Tazobactam 2.25 GM in Sodium Chloride 0.9% 50 ML IV SCH (04:33)
[2017-02-01] MEDS: Cetirizine 10 MG Tab PO SCH (08:14)
[2017-02-01] MEDS: Bisacodyl 5 MG Tab PO SCH ×2 (08:14→20:45)
[2017-02-01] MEDS: Divalproex Sodium Delayed-Release 250 MG Tab.CR PO SCH ×2 (08:15→17:10)
[2017-02-01] MEDS: Cholecalciferol (Vitamin D3) 1,000 Unit Tab PO SCH (08:15)
[2017-02-01] MEDS: Sennosides 8.6 MG Tab PO SCH (08:16)
[2017-02-01] MEDS: Multivitamins with Iron/Calcium/Folic Acid/Minerals Tab PO SCH (08:17)
[2017-02-01] MEDS: Atenolol 50 MG Tab PO SCH (08:18)
[2017-02-01] MEDS: Tamsulosin 0.4 MG Cap.ER PO SCH (08:19)
[2017-02-01] MEDS: Fluticasone Propionate Nasal Spray 16 GM Bottle NASBOTH SCH (08:19)
[2017-02-01] MEDS: TRANSDERM SCOP CHECK TOP SCH (08:22)
[2017-02-01] MEDS: Levofloxacin/Dextrose 5%-Water 250 MG in Premix Bag 1 BAG IV SCH (09:13)
--- NOTE | 2017-02-01 09:21 | PCM.CONSN ---
- General Info Date of Service: 02/01/17 Functional Status: Reports: ambulating - Review of Systems General: Reports: Weakness. Denies: Fever, Chills Pulmonary: Reports: no symptoms Cardiovascular: Reports: No Symptoms Gastrointestinal: Reports: No symptoms Psychiatric: Denies: confusion Systems Review Comment:: This patient has shown further improvement over the past 24 hours, delirium seems to have resolved. Vital signs have been stable and he has remained afebrile. Has not yet had a bowel movement but is passing small amounts of gas. White blood cell count has normalized and currently denies significant respiratory symptoms. - Patient Data Vitals - most recent: Last Vital Signs Temp 98.5 F 01/31/17 22:00 Pulse 83 02/01/17 08:18 Resp 20 02/01/17 05:40 BP 111/54 L 02/01/17 08:18 Pulse Ox 94 L 02/01/17 07:55 Weight - most recent: 219 lb 15.988 oz I&O - last 24 hours: Intake & Output 01/31/17 02/01/17 02/01/17 22:59 06:59 14:59 Intake Total 160 800 Output Total 140 900 Balance 20 -100 Lab Results last 24 hrs: Laboratory Results - last 24 hr 02/01/17 02/01/17 Range/Units 06:00 06:00 WBC 7.6 (4.5-11.0) K/uL RBC 3.35 L (4.30-5.90) M/uL Hgb 10.9 L (12.0-15.0) g/dL Hct 32.5 L (40.0-54.0) % MCV 97 (80-98) fL MCH 33 H (27-31) pg MCHC 34 (32-36) % Plt Count 235 (150-400) K/uL Sodium 142 (140-148) mmol/L Potassium 3.8 (3.6-5.2) mmol/L Chloride 109 H (100-108) mmol/L Carbon Dioxide 25 (21-32) mmol/L Anion Gap 11.8 (5.0-14.0) mmol/L BUN 41 H (7-18) mg/dL Creatinine 1.0 (0.8-1.3) mg/dL Est Cr Clr Drug Dosing 54.33 mL/min Estimated GFR (MDRD) > 60 (>60) Glucose 109 H (74-106) mg/dL Calcium 7.8 L (8.5-10.1) mg/dL Slick Results last 24 hrs: Microbiology 01/30/17 10:20 Aerobic Blood Culture - Preliminary Blood - Arm, Left NO GROWTH AFTER 1 DAY Anaerobic Blood Culture - Preliminary NO GROWTH AFTER 1 DAY 01/30/17 10:10 Aerobic Blood Culture - Preliminary Blood - Arm, Left NO GROWTH AFTER 1 DAY Anaerobic Blood Culture - Preliminary NO GROWTH AFTER 1 DAY Med Orders - Current: Current Medications Hydrocodone Bitart/Acetaminophen ([place] 325-5 Mg) 1 tab PO Q4H PRN PRN Reason: Abdominal Pain Last Admin: 02/01/17 01:04 Dose: 1 tab Albuterol (Proventil Neb Soln) 2.5 mg NEB Q4H PRN PRN Reason: Wheezing Last Admin: 02/01/17 00:59 Dose: 2.5 mg Alvimopan (Entereg) 12 mg PO Q12H [facility] Stop: 02/04/17 09:01 Last Admin: 02/01/17 08:14 Dose: 12 mg Atenolol (Tenormin) 50 mg PO DAILY [facility] Last Admin: 02/01/17 08:18 Dose: 50 mg Bisacodyl (Dulcolax) 10 mg PO BID [facility] Last Admin: 02/01/17 08:14 Dose: 10 mg Cetirizine HCl (Zyrtec) 10 mg PO DAILY [facility] Last Admin: 02/01/17 08:14 Dose: 10 mg Cholecalciferol (Vitamin D3) 1,000 units PO DAILY [facility] Last Admin: 02/01/17 08:15 Dose: 1,000 units Divalproex Sodium (Divalproex Sodium) 250 mg PO BIDMEALS [facility] Last Admin: 02/01/17 08:15 Dose: 250 mg Enoxaparin Sodium (Lovenox) 30 mg SUBCUT Q24H [facility] Last Admin: 01/31/17 22:53 Dose: 30 mg Fluticasone Propionate (Flonase) 0 gm NASBOTH DAILY [facility] Last Admin: 02/01/17 08:19 Dose: 2 spray Hydroxyzine HCl (Vistaril) 50 mg IM Q6H PRN PRN Reason: Abdominal Pain Levofloxacin/Dextrose 250 mg/ (Premix) 50 mls @ 50 mls/hr IV Q24H [facility] Last Admin: 02/01/17 09:13 Dose: 50 mls/hr Sodium Chloride (Normal Saline) 1,000 mls @ 50 mls/hr IV ASDIRECTED [facility] Last Admin: 01/31/17 22:52 Dose: 50 mls/hr Melatonin (Melatonin) 9 mg PO BEDTIME [facility] Last Admin: 01/31/17 20:48 Dose: 9 mg Multivitamins/Minerals (Thera M Plus) 1 tab PO DAILY [facility] Last Admin: 02/01/17 08:17 Dose: 1 tab Naloxone HCl (Narcan) 0.1 mg IVPUSH Q5M PRN PRN Reason: RESP RATE LESS THAN 6/MINUTE Transderm Scop Patch (Check) 0 each TOP DAILY [facility] Last Admin: 02/01/17 08:22 Dose: Not Given Ondansetron HCl (Zofran) 4 mg IVPUSH Q6H PRN PRN Reason: Nausea/Vomiting Last Admin: 01/28/17 20:12 Dose: 4 mg Pantoprazole Sodium (Protonix Iv) 40 mg IVPUSH Q12H [facility] Scopolamine (Transderm-Scop) 1.5 mg TRDERM Q72H [facility] Last Admin: 01/31/17 09:27 Dose: 1.5 mg Senna (Senna) 8.6 mg PO DAILY [facility] Last Admin: 02/01/17 08:16 Dose: 8.6 mg Simvastatin (Zocor) 80 mg PO QPM [facility] Last Admin: 01/31/17 16:25 Dose: 80 mg Sucralfate (Carafate) 1 gm PO QIDACANDBED [facility] Tamsulosin HCl (Flomax) 0.4 mg PO PCBREAKFAST [facility] Last Admin: 02/01/17 08:19 Dose: 0.4 mg Tramadol HCl (Ultram) 50 mg PO Q4H PRN PRN Reason: Abdominal Pain Discontinued Medications Alvimopan (Entereg) 12 mg PO ONETIME ONE Stop: 01/28/17 10:16 Last Admin: 01/28/17 12:01 Dose: 12 mg Alvimopan (Entereg) 12 mg PO Q12H [facility] Stop: 02/04/17 04:16 Last Admin: 01/28/17 17:38 Dose: Not Given Atenolol (Tenormin) 50 mg PO DAILY [facility] Cetirizine HCl (Zyrtec) 10 mg PO DAILY [facility] Dexamethasone (Dexamethasone) Confirm Administered Dose 4 mg .ROUTE .STK-MED ONE Stop: 01/28/17 12:32 Enoxaparin Sodium (Lovenox) 40 mg SUBCUT DAILY [facility] Enoxaparin Sodium (Lovenox) 40 mg SUBCUT DAILY [facility] Enoxaparin Sodium (Lovenox) 40 mg SUBCUT DAILY [facility] Last Admin: 01/30/17 12:50 Dose: Not Given Enoxaparin Sodium (Lovenox) 30 mg SUBCUT Q24H [facility] Last Admin: 01/30/17 13:11 Dose: 30 mg Ephedrine Sulfate (Ephedrine Sulfate) Confirm Administered Dose 50 mg .ROUTE .STK-MED ONE Stop: 01/28/17 14:36 Fentanyl (Sublimaze) Confirm Administered Dose 250 mcg .ROUTE .STK-MED ONE Stop: 01/28/17 12:32 Fentanyl (Sublimaze) Confirm Administered Dose 250 mcg .ROUTE .[facility]-MED ONE Stop: 01/28/17 14:26 Furosemide (Lasix) 20 mg IVPUSH ONETIME ONE Stop: 01/30/17 01:23 Last Admin: 01/30/17 02:14 Dose: 20 mg Glycopyrrolate () Confirm Administered Dose 1 mg .ROUTE .K-MED ONE Stop: 01/28/17 12:32 Dextrose/Lactated Ringer's (Dextrose 5%-Lactated Ringers) 1,000 mls @ 100 mls/ hr IV ASDIRECTED [facility] Last Admin: 01/28/17 11:32 Dose: 100 mls/hr Cefoxitin Sodium 2 gm/ Sodium (Chloride) 50 mls @ 100 mls/hr IV ONETIME ONE Stop: 01/28/17 13:14 Last Admin: 01/28/17 17:24 Dose: Not Given Fentanyl 2,500 mcg/ Sodium (Chloride) 250 mls @ 0 mls/hr EPIDUR TITRATE [facility]; Titrate PRN Reason: Protocol Last Titration: 01/30/17 08:19 Dose: 8 ml/hr, 8 mls/hr Sodium Chloride (Normal Saline) Confirm Administered Dose 10 mls @ as directed .ROUTE .STK-MED ONE Stop: 01/28/17 14:44 Potassium Chloride/Dextrose/Sod Cl (D5 1/2 Ns W/ 20 Meq/L Kcl) 1,000 mls @ 100 mls/hr IV ASDIRECTED [facility] Last Admin: 01/30/17 04:06 Dose: 100 mls/hr Hetastarch/Sodium Chloride (Hetastarch 6% In Normal Saline) 250 mls @ 250 mls/ hr IV ONETIME ONE Stop: 01/28/17 22:50 Last Admin: 01/28/17 22:26 Dose: 250 mls/hr Lactated Ringer's (Ringers, Lactated) 250 mls @ 250 mls/hr IV .BOLUS [facility] Last Admin: 01/29/17 03:05 Dose: 250 mls/hr Lactated Ringer's (Ringers, Lactated) 250 mls @ 250 mls/hr IV .BOLUS ONE Stop: 01/29/17 07:44 Last Admin: 01/29/17 06:30 Dose: 250 mls/hr Lactated Ringer's (Ringers, Lactated) 250 mls @ 250 mls/hr IV ONETIME ONE Stop: 01/29/17 17:59 Last Admin: 01/29/17 16:30 Dose: 250 mls/hr Lactated Ringer's (Ringers, Lactated) 500 mls @ 500 mls/hr IV BOLUS ONE Stop: 01/29/17 21:58 Last Admin: 01/29/17 21:12 Dose: 500 mls/hr Dextrose/Sodium Chloride (Dextrose 5%-1/2 Ns) 1,000 mls @ 100 mls/hr IV ASDIRECTED [facility] Last Admin: 01/30/17 07:57 Dose: 100 mls/hr Sodium Chloride (Normal Saline) 1,000 mls @ 500 mls/hr IV ASDIRECTED [facility] Stop: 01/30/17 10:16 Last Admin: 01/30/17 08:42 Dose: 500 mls/hr Levofloxacin/Dextrose 500 mg/ (Premix) 100 mls @ 100 mls/hr IV Q24H [facility] Stop: 01/30/17 11:30 Last Admin: 01/30/17 10:55 Dose: 100 mls/hr Piperacillin Sod/Tazobactam (Sod 2.25 gm/ Sodium Chloride) 50 mls @ 100 mls/hr IV Q6H [facility] Last Admin: 02/01/17 04:33 Dose: 100 mls/hr Sodium Chloride (Normal Saline) 1,000 mls @ 250 mls/hr IV ASDIRECTED [facility] Sodium Chloride (Normal Saline) 1,000 mls @ 100 mls/hr IV ASDIRECTED [facility] Last Admin: 01/31/17 04:27 Dose: 100 mls/hr Ibuprofen (Motrin) 400 mg PO Q6H PRN PRN Reason: Abdominal Pain Lidocaine HCl (Xylocaine 2% Jelly) Confirm Administered Dose 10 ml .ROUTE .STK- MED ONE Stop: 01/31/17 23:14 Last Admin: 01/31/17 23:27 Dose: 10 ml Lisinopril (Prinivil) 2.5 mg PO DAILY [facility] Lisinopril (Prinivil) 2.5 mg PO DAILY [facility] Last Admin: 01/30/17 11:01 Dose: 2.5 mg Neostigmine Methylsulfate (Neostigmine) Confirm Administered Dose 5 mg .ROUTE .STD4P-MED ONE Stop: 01/28/17 12:32 Non-Formulary Medication (Cholecalciferol (Vitamin D3) [Vitamin D]) 1,000 unit PO DAILY [facility] Non-Formulary Medication (Fluticasone Propionate [Flonase Allergy Relief]) 2 spray NS DAILY [facility] Non-Formulary Medication (Multivitamin With Minerals [Multiple Vitamin]) 1 tab PO DAILY [facility] Non-Formulary Medication (Multivitamin-Min/Iron/Fa/Vit K [Multi-Day Plus Minerals Tablet]) 1 tab PO DAILY [facility] Non-Formulary Medication (Simvastatin [Simvastatin]) 80 mg PO DAILY [facility] Ondansetron HCl (Zofran) Confirm Administered Dose 4 mg .ROUTE .STK-MED ONE Stop: 01/28/17 12:32 Pantoprazole Sodium (Protonix Iv) 40 mg IVPUSH DAILY [facility] Last Admin: 01/28/17 17:37 Dose: Not Given Pantoprazole Sodium (Protonix Iv) 40 mg IVPUSH Q24H [facility] Last Admin: 01/31/17 17:11 Dose: 40 mg Propofol (Diprivan 20 Ml) Confirm Administered Dose 200 mg .ROUTE .STK-MED ONE Stop: 01/28/17 12:32 Rocuronium [place] (Zemuron) Confirm Administered Dose 50 mg .ROUTE .STK-MED ONE Stop: 01/28/17 12:32 Scopolamine (Transderm-Scop) Confirm Administered Dose 1.5 mg .ROUTE .STK-MED ONE Stop: 01/28/17 15:15 Scopolamine (Transderm-Scop) 1.5 mg TRDERM Q72H [facility] Last Admin: 01/28/17 17:38 Dose: Not Given Sodium Polystyrene Sulfonate (Kayexalate) 45 gm PO NOW ONE Stop: 01/30/17 08:14 Last Admin: 01/30/17 12:35 Dose: Not Given Sodium Polystyrene Sulfonate (Kayexalate) 45 gm PO NOW ONE Stop: 01/30/17 13:04 Last Admin: 01/31/17 07:49 Dose: Not Given Sodium Polystyrene Sulfonate (Kayexalate) 45 gm RECTAL NOW ONE Stop: 01/30/17 13:11 Last Admin: 01/30/17 14:10 Dose: 45 gm Tamsulosin HCl (Flomax) 0.4 mg PO PCBREAKFAST [facility] - Exam Quality Assessment: urine catheter, DVT prophylaxis General: alert, oriented, cooperative, no acute distress Lungs: Clear to auscultation, Normal respiratory effort Cardiovascular: Regular Rate, Regular Rhythm, No Murmurs Abdomen: bowel sounds present, soft, no tenderness, no distension Extremities: edema Skin: warm, dry, intact Consult PN Assessment/Plan Procedures: Procedures BLOOD TYPING SEROLOGIC ABO (01/14/17) BLOOD TYPING SEROLOGIC RH(D) (01/14/17) CARCINOEMBRYONIC ANTIGEN (01/14/17) COLONOSCOPY AND BIOPSY (01/14/17) COMPLETE CBC AUTOMATED (01/14/17) COMPREHEN METABOLIC PANEL (01/14/17) PT EVALUATION (11/29/15) RBC ANTIBODY SCREEN (01/14/17) ROUTINE VENIPUNCTURE (01/14/17) THERAPEUTIC EXERCISES (11/29/15) TISSUE EXAM BY PATHOLOGIST (01/14/17) Problem List Initiated/Reviewed/Updated: Yes My Orders last 24 hours: My Active Orders 01/31/17 09:13 Consult to Physical Therapy [PT Evaluation and Treatment] [CONS] Routine 01/31/17 09:15 Sodium Chloride 0.9% [Normal Saline] 1,000 ml IV ASDIRECTED 01/31/17 10:00 Levofloxacin/Dextrose 5%-Water [Levaquin in D5W 250 MG/50 ML] 250 mg Premix Bag 1 bag IV Q24H 01/31/17 17:00 Divalproex Sodium 250 mg PO BIDMEALS 01/31/17 21:00 Melatonin 9 mg PO BEDTIME 02/01/17 09:15 Pantoprazole [ProTONIX IV] 40 mg IVPUSH Q12H 02/01/17 11:00 Sucralfate [Carafate] 1 gm PO QIDACANDBED Plan: ASSESSMENT AND RECOMMENDATIONS STATUS POST RIGHT HEMICOLECTOMY FOR CECAL MASS -Ongoing postoperative care per Dr. Mazariegos INTERMITTENT HYPOTENSION-resolved after IV fluid resuscitation -Decrease IV rate to 50 mL per hour -Transfer to medical surgical floor ACUTE ON CHRONIC RENAL INSUFFICIENCY-acute renal insufficiency resolved, he is back to baseline -Closely monitor urine output and renal function -IV fluid resuscitation as above -Hold lisinopril and diuretic therapy HYPERKALEMIA-resolved -Cardiac monitoring -Repeat potassium level in a.m. LEFT LUNG PNEUMONIA-he blood cell count elevation has resolved, currently has no respiratory symptoms. Cultures have been negative thus far -Blood cultures pending -Discontinue Zosyn -Continue levofloxacin at current dosing and intervals, if he remains stable, discontinue in 2 days. DELIRIUM-resolved with current management -Melatonin 9 mg by mouth each bedtime -Depakote 250 mg by mouth twice a day
[2017-02-01] MEDS: Sucralfate Suspension 1 GM/10 ML Cup PO SCH ×3 (09:59→20:42)
[2017-02-01] MEDS: Pantoprazole 40 MG Vial IVPUSH SCH ×2 (10:00→20:46)
--- NOTE | 2017-02-01 10:54 | PCM.SURGPN ---
- General Info Date of Service: 02/01/17 Date of Surgery/Procedure: 01/28/17 POD#: 4 Post-Op Diagnosis: Endoscopically unresectable tubulovillous adenoma Functional Status: Reports: pain controlled, tolerating diet (Not eating much. ) , ambulating, urinating, incentive spirometry - Review of Systems General: Reports: No Symptoms Pulmonary: Reports: no symptoms Cardiovascular: Reports: No Symptoms, Edema Gastrointestinal: Reports: Decreased appetite, Flatus (Small amount of flatus. Says he feels like a BM is coming. ) Genitourinary: Reports: no symptoms (Salas was put back in last night as he could not void. Plan to remove it tomorrow. ) Musculoskeletal: Reports: no symptoms Skin: Reports: no symptoms Neurological: Reports: No Symptoms Psychiatric: Reports: no symptoms - Patient Data Vitals - most recent: Last Vital Signs Temp 98.1 F 02/01/17 08:00 Pulse 83 02/01/17 08:18 Resp 18 02/01/17 08:00 BP 111/54 L 02/01/17 08:18 Pulse Ox 94 L 02/01/17 08:00 Weight - most recent: 219 lb 15.988 oz I&O - last 24 hours: Intake & Output 01/31/17 02/01/17 02/01/17 22:59 06:59 14:59 Intake Total 160 800 120 Output Total 140 900 100 Balance 20 -100 20 Lab Results last 24 hrs: Laboratory Results - last 24 hr 02/01/17 02/01/17 Range/Units 06:00 06:00 WBC 7.6 (4.5-11.0) K/uL RBC 3.35 L (4.30-5.90) M/uL Hgb 10.9 L (12.0-15.0) g/dL Hct 32.5 L (40.0-54.0) % MCV 97 (80-98) fL MCH 33 H (27-31) pg MCHC 34 (32-36) % Plt Count 235 (150-400) K/uL Sodium 142 (140-148) mmol/L Potassium 3.8 (3.6-5.2) mmol/L Chloride 109 H (100-108) mmol/L Carbon Dioxide 25 (21-32) mmol/L Anion Gap 11.8 (5.0-14.0) mmol/L BUN 41 H (7-18) mg/dL Creatinine 1.0 (0.8-1.3) mg/dL Est Cr Clr Drug Dosing 54.33 mL/min Estimated GFR (MDRD) > 60 (>60) Glucose 109 H (74-106) mg/dL Calcium 7.8 L (8.5-10.1) mg/dL Slick Results last 24 hrs: Microbiology 01/30/17 10:20 Aerobic Blood Culture - Preliminary Blood - Arm, Left NO GROWTH AFTER 2 DAYS Anaerobic Blood Culture - Preliminary NO GROWTH AFTER 2 DAYS 01/30/17 10:10 Aerobic Blood Culture - Preliminary Blood - Arm, Left NO GROWTH AFTER 2 DAYS Anaerobic Blood Culture - Preliminary NO GROWTH AFTER 2 DAYS Med Orders - Current: Current Medications Hydrocodone Bitart/Acetaminophen ([place] 325-5 Mg) 1 tab PO Q4H PRN PRN Reason: Abdominal Pain Last Admin: 02/01/17 01:04 Dose: 1 tab Albuterol (Proventil Neb Soln) 2.5 mg NEB Q4H PRN PRN Reason: Wheezing Last Admin: 02/01/17 00:59 Dose: 2.5 mg Alvimopan (Entereg) 12 mg PO Q12H [facility] Stop: 02/04/17 09:01 Last Admin: 02/01/17 08:14 Dose: 12 mg Atenolol (Tenormin) 50 mg PO DAILY [facility] Last Admin: 02/01/17 08:18 Dose: 50 mg Bisacodyl (Dulcolax) 10 mg PO BID [facility] Last Admin: 02/01/17 08:14 Dose: 10 mg Cetirizine HCl (Zyrtec) 10 mg PO DAILY [facility] Last Admin: 02/01/17 08:14 Dose: 10 mg Cholecalciferol (Vitamin D3) 1,000 units PO DAILY [facility] Last Admin: 02/01/17 08:15 Dose: 1,000 units Divalproex Sodium (Divalproex Sodium) 250 mg PO BIDMEALS [facility] Last Admin: 02/01/17 08:15 Dose: 250 mg Enoxaparin Sodium (Lovenox) 30 mg SUBCUT Q24H [facility] Last Admin: 01/31/17 22:53 Dose: 30 mg Fluticasone Propionate (Flonase) 0 gm NASBOTH DAILY [facility] Last Admin: 02/01/17 08:19 Dose: 2 spray Hydroxyzine HCl (Vistaril) 50 mg IM Q6H PRN PRN Reason: Abdominal Pain Levofloxacin/Dextrose 250 mg/ (Premix) 50 mls @ 50 mls/hr IV Q24H [facility] Last Admin: 02/01/17 09:13 Dose: 50 mls/hr Sodium Chloride (Normal Saline) 1,000 mls @ 50 mls/hr IV ASDIRECTED [facility] Last Admin: 01/31/17 22:52 Dose: 50 mls/hr Melatonin (Melatonin) 9 mg PO BEDTIME [facility] Last Admin: 01/31/17 20:48 Dose: 9 mg Multivitamins/Minerals (Thera M Plus) 1 tab PO DAILY [facility] Last Admin: 02/01/17 08:17 Dose: 1 tab Naloxone HCl (Narcan) 0.1 mg IVPUSH Q5M PRN PRN Reason: RESP RATE LESS THAN 6/MINUTE Transderm Scop Patch (Check) 0 each TOP DAILY [facility] Last Admin: 02/01/17 08:22 Dose: Not Given Ondansetron HCl (Zofran) 4 mg IVPUSH Q6H PRN PRN Reason: Nausea/Vomiting Last Admin: 01/28/17 20:12 Dose: 4 mg Pantoprazole Sodium (Protonix Iv) 40 mg IVPUSH BID [facility] Last Admin: 02/01/17 10:00 Dose: 40 mg Scopolamine (Transderm-Scop) 1.5 mg TRDERM Q72H [facility] Last Admin: 01/31/17 09:27 Dose: 1.5 mg Senna (Senna) 8.6 mg PO DAILY [facility] Last Admin: 02/01/17 08:16 Dose: 8.6 mg Simvastatin (Zocor) 80 mg PO QPM [facility] Last Admin: 01/31/17 16:25 Dose: 80 mg Sucralfate (Carafate) 1 gm PO QIDACANDBED [facility] Last Admin: 02/01/17 09:59 Dose: 1 gm Tamsulosin HCl (Flomax) 0.4 mg PO PCBREAKFAST [facility] Last Admin: 02/01/17 08:19 Dose: 0.4 mg Tramadol HCl (Ultram) 50 mg PO Q4H PRN PRN Reason: Abdominal Pain Discontinued Medications Alvimopan (Entereg) 12 mg PO ONETIME ONE Stop: 01/28/17 10:16 Last Admin: 01/28/17 12:01 Dose: 12 mg Alvimopan (Entereg) 12 mg PO Q12H [facility] Stop: 02/04/17 04:16 Last Admin: 01/28/17 17:38 Dose: Not Given Atenolol (Tenormin) 50 mg PO DAILY [facility] Cetirizine HCl (Zyrtec) 10 mg PO DAILY [facility] Dexamethasone (Dexamethasone) Confirm Administered Dose 4 mg .ROUTE .STK-MED ONE Stop: 01/28/17 12:32 Enoxaparin Sodium (Lovenox) 40 mg SUBCUT DAILY [facility] Enoxaparin Sodium (Lovenox) 40 mg SUBCUT DAILY [facility] Enoxaparin Sodium (Lovenox) 40 mg SUBCUT DAILY [facility] Last Admin: 01/30/17 12:50 Dose: Not Given Enoxaparin Sodium (Lovenox) 30 mg SUBCUT Q24H [facility] Last Admin: 01/30/17 13:11 Dose: 30 mg Ephedrine Sulfate (Ephedrine Sulfate) Confirm Administered Dose 50 mg .ROUTE .STK-MED ONE Stop: 01/28/17 14:36 Fentanyl (Sublimaze) Confirm Administered Dose 250 mcg .ROUTE .STK-MED ONE Stop: 01/28/17 12:32 Fentanyl (Sublimaze) Confirm Administered Dose 250 mcg .ROUTE .STK-MED ONE Stop: 01/28/17 14:26 Furosemide (Lasix) 20 mg IVPUSH ONETIME ONE Stop: 01/30/17 01:23 Last Admin: 01/30/17 02:14 Dose: 20 mg Glycopyrrolate () Confirm Administered Dose 1 mg .ROUTE .STK-MED ONE Stop: 01/28/17 12:32 Dextrose/Lactated Ringer's (Dextrose 5%-Lactated Ringers) 1,000 mls @ 100 mls/ hr IV ASDIRECTED [facility] Last Admin: 01/28/17 11:32 Dose: 100 mls/hr Cefoxitin Sodium 2 gm/ Sodium (Chloride) 50 mls @ 100 mls/hr IV ONETIME ONE Stop: 01/28/17 13:14 Last Admin: 01/28/17 17:24 Dose: Not Given Fentanyl 2,500 mcg/ Sodium (Chloride) 250 mls @ 0 mls/hr EPIDUR TITRATE [facility]; Titrate PRN Reason: Protocol Last Titration: 01/30/17 08:19 Dose: 8 ml/hr, 8 mls/hr Sodium Chloride (Normal Saline) Confirm Administered Dose 10 mls @ as directed .ROUTE .STK-MED ONE Stop: 01/28/17 14:44 Potassium Chloride/Dextrose/Sod Cl (D5 1/2 Ns W/ 20 Meq/L Kcl) 1,000 mls @ 100 mls/hr IV ASDIRECTED [facility] Last Admin: 01/30/17 04:06 Dose: 100 mls/hr Hetastarch/Sodium Chloride (Hetastarch 6% In Normal Saline) 250 mls @ 250 mls/ hr IV ONETIME ONE Stop: 01/28/17 22:50 Last Admin: 01/28/17 22:26 Dose: 250 mls/hr Lactated Ringer's (Ringers, Lactated) 250 mls @ 250 mls/hr IV .BOLUS [facility] Last Admin: 01/29/17 03:05 Dose: 250 mls/hr Lactated Ringer's (Ringers, Lactated) 250 mls @ 250 mls/hr IV .BOLUS ONE Stop: 01/29/17 07:44 Last Admin: 01/29/17 06:30 Dose: 250 mls/hr Lactated Ringer's (Ringers, Lactated) 250 mls @ 250 mls/hr IV ONETIME ONE Stop: 01/29/17 17:59 Last Admin: 01/29/17 16:30 Dose: 250 mls/hr Lactated Ringer's (Ringers, Lactated) 500 mls @ 500 mls/hr IV BOLUS ONE Stop: 01/29/17 21:58 Last Admin: 01/29/17 21:12 Dose: 500 mls/hr Dextrose/Sodium Chloride (Dextrose 5%-1/2 Ns) 1,000 mls @ 100 mls/hr IV ASDIRECTED [facility] Last Admin: 01/30/17 07:57 Dose: 100 mls/hr Sodium Chloride (Normal Saline) 1,000 mls @ 500 mls/hr IV ASDIRECTED [facility] Stop: 01/30/17 10:16 Last Admin: 01/30/17 08:42 Dose: 500 mls/hr Levofloxacin/Dextrose 500 mg/ (Premix) 100 mls @ 100 mls/hr IV Q24H [facility] Stop: 01/30/17 11:30 Last Admin: 01/30/17 10:55 Dose: 100 mls/hr Piperacillin Sod/Tazobactam (Sod 2.25 gm/ Sodium Chloride) 50 mls @ 100 mls/hr IV Q6H [facility] Last Admin: 02/01/17 04:33 Dose: 100 mls/hr Sodium Chloride (Normal Saline) 1,000 mls @ 250 mls/hr IV ASDIRECTED [facility] Sodium Chloride (Normal Saline) 1,000 mls @ 100 mls/hr IV ASDIRECTED [facility] Last Admin: 01/31/17 04:27 Dose: 100 mls/hr Ibuprofen (Motrin) 400 mg PO Q6H PRN PRN Reason: Abdominal Pain Lidocaine HCl (Xylocaine 2% Jelly) Confirm Administered Dose 10 ml .ROUTE .STK- MED ONE Stop: 01/31/17 23:14 Last Admin: 01/31/17 23:27 Dose: 10 ml Lisinopril (Prinivil) 2.5 mg PO DAILY [facility] Lisinopril (Prinivil) 2.5 mg PO DAILY [facility] Last Admin: 01/30/17 11:01 Dose: 2.5 mg Neostigmine Methylsulfate (Neostigmine) Confirm Administered Dose 5 mg .ROUTE .STK-MED ONE Stop: 01/28/17 12:32 Non-Formulary Medication (Cholecalciferol (Vitamin D3) [Vitamin D]) 1,000 unit PO DAILY [facility] Non-Formulary Medication (Fluticasone Propionate [Flonase Allergy Relief]) 2 spray NS DAILY [facility] Non-Formulary Medication (Multivitamin With Minerals [Multiple Vitamin]) 1 tab PO DAILY [facility] Non-Formulary Medication (Multivitamin-Min/Iron/Fa/Vit K [Multi-Day Plus Minerals Tablet]) 1 tab PO DAILY [facility] Non-Formulary Medication (Simvastatin [Simvastatin]) 80 mg PO DAILY [facility] Ondansetron HCl (Zofran) Confirm Administered Dose 4 mg .ROUTE .STK-MED ONE Stop: 01/28/17 12:32 Pantoprazole Sodium (Protonix Iv) 40 mg IVPUSH DAILY [facility] Last Admin: 01/28/17 17:37 Dose: Not Given Pantoprazole Sodium (Protonix Iv) 40 mg IVPUSH Q24H [facility] Last Admin: 01/31/17 17:11 Dose: 40 mg Propofol (Diprivan 20 Ml) Confirm Administered Dose 200 mg .ROUTE .STK-MED ONE Stop: 01/28/17 12:32 Rocuronium Cameron (Zemuron) Confirm Administered Dose 50 mg .ROUTE .STK-MED ONE Stop: 01/28/17 12:32 Scopolamine (Transderm-Scop) Confirm Administered Dose 1.5 mg .ROUTE .STK-MED ONE Stop: 01/28/17 15:15 Scopolamine (Transderm-Scop) 1.5 mg TRDERM Q72H [facility] Last Admin: 01/28/17 17:38 Dose: Not Given Sodium Polystyrene Sulfonate (Kayexalate) 45 gm PO NOW ONE Stop: 01/30/17 08:14 Last Admin: 01/30/17 12:35 Dose: Not Given Sodium Polystyrene Sulfonate (Kayexalate) 45 gm PO NOW ONE Stop: 01/30/17 13:04 Last Admin: 01/31/17 07:49 Dose: Not Given Sodium Polystyrene Sulfonate (Kayexalate) 45 gm RECTAL NOW ONE Stop: 01/30/17 13:11 Last Admin: 01/30/17 14:10 Dose: 45 gm Tamsulosin HCl (Flomax) 0.4 mg PO PCBREAKFAST [facility] - Exam Wound/Incisions: healing well, no drainage General: alert, oriented (He seems oriented now. ), cooperative, no acute distress Lungs: Clear to auscultation, Normal respiratory effort Cardiovascular: Regular Rate, Regular Rhythm Abdomen: bowel sounds present, soft, no tenderness, no distension (He is a big man, may have some distension. ) Extremities: edema (Improving.) Skin: warm, dry, intact Neurological: no new focal deficit, normal gait (Slow. ), normal speech Psy/Mental Status: alert, normal affect, normal mood - Problem List & Annotations (1) Status post right hemicolectomy SNOMED Code(s): 295671456, 307618517 Code(s): Z90.49 - ACQUIRED ABSENCE OF OTHER SPECIFIED PARTS OF DIGESTIVE TRACT Status: Acute Current Visit: Yes - Problem List Review Problem List Initiated/Reviewed/Updated: Yes - My Orders Last 24 Hours: Active Orders 24 hr Category Date Time Status Insert Salas Catheter [Insert Urinary Catheter] [OM.PC] Care 01/31/17 23:30 Ordered Q24H Urinary Catheter Assessment [RC] Q12H Care 01/31/17 23:29 Active BASIC METABOLIC PANEL,BMP [CHEM] AM Lab 02/02/17 05:11 Ordered BASIC METABOLIC PANEL,BMP [CHEM] AM Lab 02/03/17 05:11 Ordered CBC W/O DIFF,HEMOGRAM [HEME] DAILY Lab 02/02/17 05:10 Ordered CBC W/O DIFF,HEMOGRAM [HEME] DAILY Lab 02/03/17 05:10 Ordered Acetaminophen/HYDROcodone [[place] 325-5 MG] Med 01/31/17 10:40 Active 1 tab PO Q4H PRN Divalproex Sodium Med 01/31/17 17:00 Active 250 mg PO BIDMEALS Enoxaparin [Lovenox] Med 01/31/17 23:30 Active 30 mg SUBCUT Q24H Levofloxacin/Dextrose 5%-Water [Levaquin in D5W 250 MG/ Med 01/31/17 10:00 Active 50 ML] 250 mg Premix Bag 1 bag IV Q24H Melatonin Med 01/31/17 21:00 Active 9 mg PO BEDTIME Pantoprazole [ProTONIX IV] Med 02/01/17 10:00 Active 40 mg IVPUSH BID Scopolamine [Transderm-Scop] Med 01/31/17 10:00 Active 1.5 mg TRDERM Q72H Sucralfate [Carafate] Med 02/01/17 11:00 Active 1 gm PO QIDACANDBED Medication Orders Hydrocodone Bitart/Acetaminophen ([place] 325-5 Mg) 1 tab PO Q4H PRN PRN Reason: Abdominal Pain Last Admin: 02/01/17 01:04 Dose: 1 tab Admin: 01/31/17 17:10 Dose: 1 tab Admin: 01/31/17 11:30 Dose: 1 tab Albuterol (Proventil Neb Soln) 2.5 mg NEB Q4H PRN PRN Reason: Wheezing Last Admin: 02/01/17 00:59 Dose: 2.5 mg Admin: 01/30/17 21:10 Dose: 2.5 mg Alvimopan (Entereg) 12 mg PO Q12H [facility] Stop: 02/04/17 09:01 Last Admin: 02/01/17 08:14 Dose: 12 mg Admin: 01/31/17 20:46 Dose: 12 mg Admin: 01/31/17 08:03 Dose: 12 mg Admin: 01/30/17 20:47 Dose: 12 mg Admin: 01/30/17 11:48 Dose: 12 mg Admin: 01/29/17 21:07 Dose: 12 mg Admin: 01/29/17 08:57 Dose: 12 mg Admin: 01/28/17 21:05 Dose: 12 mg Atenolol (Tenormin) 50 mg PO DAILY [facility] Last Admin: 02/01/17 08:18 Dose: 50 mg Admin: 01/31/17 08:09 Dose: 50 mg Admin: 01/30/17 11:52 Dose: 50 mg Admin: 01/29/17 08:58 Dose: 50 mg Bisacodyl (Dulcolax) 10 mg PO BID [facility] Last Admin: 02/01/17 08:14 Dose: 10 mg Admin: 01/31/17 20:46 Dose: 10 mg Admin: 01/31/17 08:02 Dose: 10 mg Admin: 01/30/17 20:46 Dose: 10 mg Admin: 01/30/17 11:49 Dose: 10 mg Admin: 01/29/17 21:07 Dose: 10 mg Admin: 01/29/17 08:56 Dose: 10 mg Cetirizine HCl (Zyrtec) 10 mg PO DAILY [facility] Last Admin: 02/01/17 08:14 Dose: 10 mg Admin: 01/31/17 08:15 Dose: 10 mg Admin: 01/30/17 11:48 Dose: 10 mg Admin: 01/29/17 08:56 Dose: 10 mg Cholecalciferol (Vitamin D3) 1,000 units PO DAILY [facility] Last Admin: 02/01/17 08:15 Dose: 1,000 units Admin: 01/31/17 08:10 Dose: 1,000 units Admin: 01/30/17 12:06 Dose: 1,000 units Admin: 01/29/17 08:57 Dose: 1,000 units Divalproex Sodium (Divalproex Sodium) 250 mg PO BIDMEALS [facility] Last Admin: 02/01/17 08:15 Dose: 250 mg Admin: 01/31/17 16:25 Dose: 250 mg Enoxaparin Sodium (Lovenox) 30 mg SUBCUT Q24H [facility] Last Admin: 01/31/17 22:53 Dose: 30 mg Fluticasone Propionate (Flonase) 0 gm NASBOTH DAILY [facility] Last Admin: 02/01/17 08:19 Dose: 2 spray Admin: 01/31/17 08:15 Dose: 2 spray Admin: 01/30/17 12:11 Dose: 2 spray Admin: 01/29/17 08:58 Dose: 1 spray Hydroxyzine HCl (Vistaril) 50 mg IM Q6H PRN PRN Reason: Abdominal Pain Levofloxacin/Dextrose 250 mg/ (Premix) 50 mls @ 50 mls/hr IV Q24H [facility] Last Admin: 02/01/17 09:13 Dose: 50 mls/hr Infusion: 01/31/17 10:28 Dose: 50 mls/hr Admin: 01/31/17 09:28 Dose: 50 mls/hr Sodium Chloride (Normal Saline) 1,000 mls @ 50 mls/hr IV ASDIRECTED [facility] Last Admin: 01/31/17 22:52 Dose: 50 mls/hr Melatonin (Melatonin) 9 mg PO BEDTIME [facility] Last Admin: 01/31/17 20:48 Dose: 9 mg Multivitamins/Minerals (Thera M Plus) 1 tab PO DAILY [facility] Last Admin: 02/01/17 08:17 Dose: 1 tab Admin: 01/31/17 08:10 Dose: 1 tab Admin: 01/30/17 11:52 Dose: 1 tab Admin: 01/29/17 08:58 Dose: 1 tab Naloxone HCl (Narcan) 0.1 mg IVPUSH Q5M PRN PRN Reason: RESP RATE LESS THAN 6/MINUTE Transderm Scop Patch (Check) 0 each TOP DAILY [facility] Last Admin: 02/01/17 08:22 Dose: Admin: 01/31/17 08:16 Dose: Admin: 01/30/17 12:00 Dose: Not Given Admin: 01/29/17 08:59 Dose: Ondansetron HCl (Zofran) 4 mg IVPUSH Q6H PRN PRN Reason: Nausea/Vomiting Last Admin: 01/28/17 20:12 Dose: 4 mg Pantoprazole Sodium (Protonix Iv) 40 mg IVPUSH BID [facility] Last Admin: 02/01/17 10:00 Dose: 40 mg Scopolamine (Transderm-Scop) 1.5 mg TRDERM Q72H [facility] Last Admin: 01/31/17 09:27 Dose: 1.5 mg Senna (Senna) 8.6 mg PO DAILY [facility] Last Admin: 02/01/17 08:16 Dose: 8.6 mg Admin: 01/31/17 08:11 Dose: 8.6 mg Admin: 01/30/17 12:06 Dose: 8.6 mg Admin: 01/29/17 08:58 Dose: 8.6 mg Simvastatin (Zocor) 80 mg PO QPM [facility] Last Admin: 01/31/17 16:25 Dose: 80 mg Admin: 01/30/17 16:44 Dose: 80 mg Admin: 01/29/17 17:13 Dose: 80 mg Sucralfate (Carafate) 1 gm PO QIDACANDBED [facility] Last Admin: 02/01/17 09:59 Dose: 1 gm Tamsulosin HCl (Flomax) 0.4 mg PO PCBREAKFAST [facility] Last Admin: 02/01/17 08:19 Dose: 0.4 mg Admin: 01/31/17 08:04 Dose: 0.4 mg Admin: 01/30/17 12:13 Dose: 0.4 mg Admin: 01/29/17 09:00 Dose: 0.4 mg Tramadol HCl (Ultram) 50 mg PO Q4H PRN PRN Reason: Abdominal Pain - Assessment Assessment (Free Text/Narrative):: Improving. Waiting for a BM. - Plan Plan (Free Text/Narrative):: Agree with transfer to Medicalsurgical floor.
[2017-02-01] MEDS: Simvastatin 20 MG Tab PO SCH (17:10)
[2017-02-01] MEDS: Sodium Chloride 0.9% 1,000 ML IV SCH (20:23)
[2017-02-01] MEDS: Melatonin 3 MG Tab PO SCH (20:43)
[2017-02-01] MEDS: Enoxaparin 30 MG/0.3 ML Syringe SUBCUT SCH (22:36)
[2017-02-02] MEDS: Sucralfate Suspension 1 GM/10 ML Cup PO SCH ×4 (08:04→20:04)
[2017-02-02] MEDS: Cholecalciferol (Vitamin D3) 1,000 Unit Tab PO SCH (09:18)
[2017-02-02] MEDS: Multivitamins with Iron/Calcium/Folic Acid/Minerals Tab PO SCH (09:18)
[2017-02-02] MEDS: Sennosides 8.6 MG Tab PO SCH (09:19)
[2017-02-02] MEDS: Cetirizine 10 MG Tab PO SCH (09:19)
[2017-02-02] MEDS: Bisacodyl 5 MG Tab PO SCH ×2 (09:20→20:05)
[2017-02-02] MEDS: Fluticasone Propionate Nasal Spray 16 GM Bottle NASBOTH SCH (09:21)
[2017-02-02] MEDS: Divalproex Sodium Delayed-Release 250 MG Tab.CR PO SCH ×2 (09:21→17:32)
[2017-02-02] MEDS: Tamsulosin 0.4 MG Cap.ER PO SCH (09:21)
[2017-02-02] MEDS: Pantoprazole 40 MG Vial IVPUSH SCH ×2 (09:22→20:08)
[2017-02-02] MEDS: TRANSDERM SCOP CHECK TOP SCH (09:22)
[2017-02-02] MEDS: Atenolol 50 MG Tab PO SCH (09:24)
[2017-02-02] MEDS: Levofloxacin/Dextrose 5%-Water 250 MG in Premix Bag 1 BAG IV SCH (10:03)
[2017-02-02] MEDS ORDERED: Furosemide 20 MG/2 ML VIAL IVPUSH ONE (10:15)
[2017-02-02] MEDS ORDERED: Benzocaine/Cetylpyridinium/Menthol Lozenge MUCMEM PRN (10:42)
--- NOTE | 2017-02-02 10:45 | PCM.CONSN ---
- General Info Date of Service: 02/02/17 Functional Status: Reports: pain controlled, tolerating diet - Review of Systems General: Reports: Weakness HEENT: Reports: sore throat Cardiovascular: Reports: Edema Gastrointestinal: Denies: Abdominal pain Systems Review Comment:: No acute events overnight. He does have a mild sore throat this morning but thinks it's better than yesterday. Significant swelling of both legs and arms. Doesn't feel short of breath. Minimal and well-controlled abdominal pain. Kidney function is now back to baseline. - Patient Data Vitals - most recent: Last Vital Signs Temp 36.7 C 02/02/17 08:13 Pulse 81 02/02/17 09:24 Resp 16 02/02/17 08:13 BP 111/55 L 02/02/17 09:24 Pulse Ox 95 02/02/17 08:13 Weight - most recent: 99.79 kg I&O - last 24 hours: Intake & Output 02/01/17 02/02/17 02/02/17 22:59 06:59 14:59 Intake Total 659 629 50 Output Total 675 225 150 Balance -16 404 -100 Lab Results last 24 hrs: Laboratory Results - last 24 hr 02/02/17 02/02/17 Range/Units 04:45 04:45 WBC 10.1 (4.5-11.0) K/uL RBC 3.65 L (4.30-5.90) M/uL Hgb 12.1 (12.0-15.0) g/dL Hct 35.0 L (40.0-54.0) % MCV 96 (80-98) fL MCH 33 H (27-31) pg MCHC 35 (32-36) % Plt Count 255 (150-400) K/uL Sodium 146 (140-148) mmol/L Potassium 3.3 L (3.6-5.2) mmol/L Chloride 109 H (100-108) mmol/L Carbon Dioxide 27 (21-32) mmol/L Anion Gap 13.3 (5.0-14.0) mmol/L BUN 34 H (7-18) mg/dL Creatinine 0.9 (0.8-1.3) mg/dL Est Cr Clr Drug Dosing 60.36 mL/min Estimated GFR (MDRD) > 60 (>60) Glucose 97 (74-106) mg/dL Calcium 8.1 L (8.5-10.1) mg/dL Slick Results last 24 hrs: Microbiology 01/30/17 10:20 Aerobic Blood Culture - Preliminary Blood - Arm, Left NO GROWTH AFTER 3 DAYS Anaerobic Blood Culture - Preliminary NO GROWTH AFTER 3 DAYS 01/30/17 10:10 Aerobic Blood Culture - Preliminary Blood - Arm, Left NO GROWTH AFTER 3 DAYS Anaerobic Blood Culture - Preliminary NO GROWTH AFTER 3 DAYS Med Orders - Current: Current Medications Hydrocodone Bitart/Acetaminophen ([place] 325-5 Mg) 1 tab PO Q4H PRN PRN Reason: Abdominal Pain Last Admin: 02/01/17 01:04 Dose: 1 tab Albuterol (Proventil Neb Soln) 2.5 mg NEB Q4H PRN PRN Reason: Wheezing Last Admin: 02/01/17 00:59 Dose: 2.5 mg Alvimopan (Entereg) 12 mg PO Q12H [facility] Stop: 02/04/17 09:01 Last Admin: 02/02/17 09:20 Dose: 12 mg Atenolol (Tenormin) 50 mg PO DAILY [facility] Last Admin: 02/02/17 09:24 Dose: 50 mg Bisacodyl (Dulcolax) 10 mg PO BID [facility] Last Admin: 02/02/17 09:20 Dose: 10 mg Cetirizine HCl (Zyrtec) 10 mg PO DAILY [facility] Last Admin: 02/02/17 09:19 Dose: 10 mg Cholecalciferol (Vitamin D3) 1,000 units PO DAILY [facility] Last Admin: 02/02/17 09:18 Dose: 1,000 units Divalproex Sodium (Divalproex Sodium) 250 mg PO BIDMEALS [facility] Last Admin: 02/02/17 09:21 Dose: 250 mg Enoxaparin Sodium (Lovenox) 30 mg SUBCUT Q24H [facility] Last Admin: 02/01/17 22:36 Dose: 30 mg Fluticasone Propionate (Flonase) 0 gm NASBOTH DAILY [facility] Last Admin: 02/02/17 09:21 Dose: 1 spray Hydroxyzine HCl (Vistaril) 50 mg IM Q6H PRN PRN Reason: Abdominal Pain Sodium Chloride (Normal Saline) 1,000 mls @ 50 mls/hr IV ASDIRECTED [facility] Last Admin: 02/01/17 20:23 Dose: 50 mls/hr Melatonin (Melatonin) 9 mg PO BEDTIME [facility] Last Admin: 02/01/17 20:43 Dose: 9 mg Multivitamins/Minerals (Thera M Plus) 1 tab PO DAILY [facility] Last Admin: 02/02/17 09:18 Dose: 1 tab Transderm Scop Patch (Check) 0 each TOP DAILY [facility] Last Admin: 02/02/17 09:22 Dose: Not Given Ondansetron HCl (Zofran) 4 mg IVPUSH Q6H PRN PRN Reason: Nausea/Vomiting Last Admin: 01/28/17 20:12 Dose: 4 mg Pantoprazole Sodium (Protonix Iv) 40 mg IVPUSH BID [facility] Last Admin: 02/02/17 09:22 Dose: 40 mg Potassium Chloride (Klor-Con M20) 40 meq PO ONETIME ONE Stop: 02/02/17 11:01 Scopolamine (Transderm-Scop) 1.5 mg TRDERM Q72H [facility] Last Admin: 01/31/17 09:27 Dose: 1.5 mg Senna (Senna) 8.6 mg PO DAILY [facility] Last Admin: 02/02/17 09:19 Dose: 8.6 mg Simvastatin (Zocor) 80 mg PO QPM [facility] Last Admin: 02/01/17 17:10 Dose: 80 mg Sucralfate (Carafate) 1 gm PO QIDACANDBED [facility] Last Admin: 02/02/17 08:04 Dose: 1 gm Tamsulosin HCl (Flomax) 0.4 mg PO PCBREAKFAST [facility] Last Admin: 02/02/17 09:21 Dose: 0.4 mg Tramadol HCl (Ultram) 50 mg PO Q4H PRN PRN Reason: Abdominal Pain Discontinued Medications Alvimopan (Entereg) 12 mg PO ONETIME ONE Stop: 01/28/17 10:16 Last Admin: 01/28/17 12:01 Dose: 12 mg Alvimopan (Entereg) 12 mg PO Q12H [facility] Stop: 02/04/17 04:16 Last Admin: 01/28/17 17:38 Dose: Not Given Atenolol (Tenormin) 50 mg PO DAILY [facility] Cetirizine HCl (Zyrtec) 10 mg PO DAILY [facility] Dexamethasone (Dexamethasone) Confirm Administered Dose [address] [facility] ONE Stop: 01/28/17 12:32 Enoxaparin Sodium (Lovenox) 40 mg SUBCUT DAILY [facility] Enoxaparin Sodium (Lovenox) 40 mg SUBCUT DAILY [facility] Enoxaparin Sodium (Lovenox) 40 mg SUBCUT DAILY [facility] Last Admin: 01/30/17 12:50 Dose: Not Given Enoxaparin Sodium (Lovenox) 30 mg SUBCUT Q24H [facility] Last Admin: 01/30/17 13:11 Dose: 30 mg Ephedrine Sulfate (Ephedrine Sulfate) Confirm Administered Dose 50 mg .ROUTE .STK-MED ONE Stop: 01/28/17 14:36 Fentanyl (Sublimaze) Confirm Administered Dose 250 mcg .ROUTE .STK-MED ONE Stop: 01/28/17 12:32 Fentanyl (Sublimaze) Confirm Administered Dose 250 mcg .ROUTE .STK-MED ONE Stop: 01/28/17 14:26 Furosemide (Lasix) 20 mg IVPUSH ONETIME ONE Stop: 01/30/17 01:23 Last Admin: 01/30/17 02:14 Dose: 20 mg Furosemide (Lasix) 20 mg IVPUSH ONETIME ONE Stop: 02/02/17 10:16 Glycopyrrolate () Confirm Administered Dose 1 mg .ROUTE .STK-MED ONE Stop: 01/28/17 12:32 Dextrose/Lactated Ringer's (Dextrose 5%-Lactated Ringers) 1,000 mls @ 100 mls/ hr IV ASDIRECTED [facility] Last Admin: 01/28/17 11:32 Dose: 100 mls/hr Cefoxitin Sodium 2 gm/ Sodium (Chloride) 50 mls @ 100 mls/hr IV ONETIME ONE Stop: 01/28/17 13:14 Last Admin: 01/28/17 17:24 Dose: Not Given Fentanyl 2,500 mcg/ Sodium (Chloride) 250 mls @ 0 mls/hr EPIDUR TITRATE [facility]; Titrate PRN Reason: Protocol Last Titration: 01/30/17 08:19 Dose: 8 ml/hr, 8 mls/hr Sodium Chloride (Normal Saline) Confirm Administered Dose 10 mls @ as directed .ROUTE .STK-MED ONE Stop: 01/28/17 14:44 Potassium Chloride/Dextrose/Sod Cl (D5 1/2 Ns W/ 20 Meq/L Kcl) 1,000 mls @ 100 mls/hr IV ASDIRECTED [facility] Last Admin: 01/30/17 04:06 Dose: 100 mls/hr Hetastarch/Sodium Chloride (Hetastarch 6% In Normal Saline) 250 mls @ 250 mls/ hr IV ONETIME ONE Stop: 01/28/17 22:50 Last Admin: 01/28/17 22:26 Dose: 250 mls/hr Lactated Ringer's (Ringers, Lactated) 250 mls @ 250 mls/hr IV .BOLUS [facility] Last Admin: 01/29/17 03:05 Dose: 250 mls/hr Lactated Ringer's (Ringers, Lactated) 250 mls @ 250 mls/hr IV .BOLUS ONE Stop: 01/29/17 07:44 Last Admin: 01/29/17 06:30 Dose: 250 mls/hr Lactated Ringer's (Ringers, Lactated) 250 mls @ 250 mls/hr IV ONETIME ONE Stop: 01/29/17 17:59 Last Admin: 01/29/17 16:30 Dose: 250 mls/hr Lactated Ringer's (Ringers, Lactated) 500 mls @ 500 mls/hr IV BOLUS ONE Stop: 01/29/17 21:58 Last Admin: 01/29/17 21:12 Dose: 500 mls/hr Dextrose/Sodium Chloride (Dextrose 5%-1/2 Ns) 1,000 mls @ 100 mls/hr IV ASDIRECTED [facility] Last Admin: 01/30/17 07:57 Dose: 100 mls/hr Sodium Chloride (Normal Saline) 1,000 mls @ 500 mls/hr IV ASDIRECTED [facility] Stop: 01/30/17 10:16 Last Admin: 01/30/17 08:42 Dose: 500 mls/hr Levofloxacin/Dextrose 500 mg/ (Premix) 100 mls @ 100 mls/hr IV Q24H [facility] Stop: 01/30/17 11:30 Last Admin: 01/30/17 10:55 Dose: 100 mls/hr Piperacillin Sod/Tazobactam (Sod 2.25 gm/ Sodium Chloride) 50 mls @ 100 mls/hr IV Q6H [facility] Last Admin: 02/01/17 04:33 Dose: 100 mls/hr Levofloxacin/Dextrose 250 mg/ (Premix) 50 mls @ 50 mls/hr IV Q24H [facility] Last Admin: 02/02/17 10:03 Dose: 50 mls/hr Sodium Chloride (Normal Saline) 1,000 mls @ 250 mls/hr IV ASDIRECTED [facility] Sodium Chloride (Normal Saline) 1,000 mls @ 100 mls/hr IV ASDIRECTED [facility] Last Admin: 01/31/17 04:27 Dose: 100 mls/hr Ibuprofen (Motrin) 400 mg PO Q6H PRN PRN Reason: Abdominal Pain Lidocaine HCl (Xylocaine 2% Jelly) Confirm Administered Dose 10 ml .ROUTE .[employer] [facility] ONE Stop: 01/31/17 23:14 Last Admin: 01/31/17 23:27 Dose: 10 ml Lisinopril (Prinivil) 2.5 mg PO DAILY [facility] Lisinopril (Prinivil) 2.5 mg PO DAILY [facility] Last Admin: 01/30/17 11:01 Dose: 2.5 mg Naloxone HCl (Narcan) 0.1 mg IVPUSH Q5M PRN PRN Reason: RESP RATE LESS THAN 6/MINUTE Neostigmine Methylsulfate (Neostigmine) Confirm Administered Dose 5 mg .ROUTE .[employer] ONE Stop: 01/28/17 12:32 Non-Formulary Medication (Cholecalciferol (Vitamin D3) [Vitamin D]) 1,000 unit PO DAILY [facility] Non-Formulary Medication (Fluticasone Propionate [Flonase Allergy Relief]) 2 spray NS DAILY [facility] Non-Formulary Medication (Multivitamin With Minerals [Multiple Vitamin]) 1 tab PO DAILY [facility] Non-Formulary Medication (Multivitamin-Min/Iron/Fa/Vit K [Multi-Day Plus Minerals Tablet]) 1 tab PO DAILY [facility] Non-Formulary Medication (Simvastatin [Simvastatin]) 80 mg PO DAILY [facility] Ondansetron HCl (Zofran) Confirm Administered Dose 4 mg .ROUTE .[employer] ONE Stop: 01/28/17 12:32 Pantoprazole Sodium (Protonix Iv) 40 mg IVPUSH DAILY [facility] Last Admin: 01/28/17 17:37 Dose: Not Given Pantoprazole Sodium (Protonix Iv) 40 mg IVPUSH Q24H [facility] Last Admin: 01/31/17 17:11 Dose: 40 mg Propofol (Diprivan 20 Ml) Confirm Administered Dose 200 mg .ROUTE .STK-MED ONE Stop: 01/28/17 12:32 Rocuronium [place] (Zemuron) Confirm Administered Dose 50 mg .ROUTE .STK-MED ONE Stop: 01/28/17 12:32 Scopolamine (Transderm-Scop) Confirm Administered Dose 1.5 mg .ROUTE .STK-MED ONE Stop: 01/28/17 15:15 Scopolamine (Transderm-Scop) 1.5 mg TRDERM Q72H [facility] Last Admin: 01/28/17 17:38 Dose: Not Given Sodium Polystyrene Sulfonate (Kayexalate) 45 gm PO NOW ONE Stop: 01/30/17 08:14 Last Admin: 01/30/17 12:35 Dose: Not Given Sodium Polystyrene Sulfonate (Kayexalate) 45 gm PO NOW ONE Stop: 01/30/17 13:04 Last Admin: 01/31/17 07:49 Dose: Not Given Sodium Polystyrene Sulfonate (Kayexalate) 45 gm RECTAL NOW ONE Stop: 01/30/17 13:11 Last Admin: 01/30/17 14:10 Dose: 45 gm Tamsulosin HCl (Flomax) 0.4 mg PO PCBREAKFAST [facility] - Exam Quality Assessment: urine catheter. No: supplemental oxygen General: alert, oriented, cooperative, no acute distress Neck: supple Lungs: Clear to auscultation, Normal respiratory effort, Decreased breath sounds (mild left lung base) Cardiovascular: Regular Rate, Regular Rhythm Abdomen: bowel sounds present, soft, no tenderness, no distension Extremities: no cyanosis, edema (pitting edema to the waist bilaterally.) Skin: warm, dry Psy/Mental Status: alert, normal affect Consult PN Assessment/Plan Procedures: Procedures BLOOD TYPING SEROLOGIC ABO (01/14/17) BLOOD TYPING SEROLOGIC RH(D) (01/14/17) CARCINOEMBRYONIC ANTIGEN (01/14/17) COLONOSCOPY AND BIOPSY (01/14/17) COMPLETE CBC AUTOMATED (01/14/17) COMPREHEN METABOLIC PANEL (01/14/17) PT EVALUATION (11/29/15) RBC ANTIBODY SCREEN (01/14/17) ROUTINE VENIPUNCTURE (01/14/17) THERAPEUTIC EXERCISES (11/29/15) TISSUE EXAM BY PATHOLOGIST (01/14/17) Problem List Initiated/Reviewed/Updated: Yes My Orders last 24 hours: My Active Orders 02/02/17 10:42 Benzocaine/Cetylpyrd/Menthol [Cepacol Sore Throat] 1 lozenge MUCMEM Q2H PRN Convert IV to Saline Lock [OM.PC] Routine 02/02/17 18:00 POTASSIUM,K [CHEM] Timed 02/03/17 09:00 Levofloxacin [Levaquin] 250 mg PO Q24H Levofloxacin [Levaquin] 500 mg PO Q24H Plan: ASSESSMENT AND RECOMMENDATIONS STATUS POST RIGHT HEMICOLECTOMY FOR CECAL MASS - doing well from a surgical standpoint. -Ongoing postoperative care per Dr. Mazariegos VOLUME OVERLOAD WITH PITTING EDEMA - secondary to volume resuscitation complicated by suboptimal nutrition status. Has received one dose of furosemide so far. -Recess volume status -Probably will need several doses of furosemide INTERMITTENT HYPOTENSION - resolved after IV fluid resuscitation -Saline lock IV with increasing edema -Transfer to medical surgical floor ACUTE ON CHRONIC RENAL INSUFFICIENCY - acute renal insufficiency resolved and creatinine is back to baseline. -Closely monitor urine output and renal function -Hold lisinopril HYPERKALEMIA - resolved and potassium is low today. -Discontinue Cardiac monitoring -Supplement potassium and repeat this afternoon -Repeat potassium level in a.m. LEFT LUNG PNEUMONIA - white blood cell count improving and no fevers. Not hypoxic. He does have some crackles in the left lung base. Cultures have been negative thus far -Blood cultures pending -Continue levofloxacin but increased to pneumonia dosing DELIRIUM - resolved with current management. -Melatonin 9 mg by mouth each bedtime -Depakote 250 mg by mouth twice a day -Should be able to discontinue these medications tomorrow Johnson Snider M.D.
[2017-02-02] MEDS ORDERED: Potassium Chloride 20 MEQ Tab.ER PO ONE ×2 (11:00→19:27)
[2017-02-02] MEDS: Simvastatin 20 MG Tab PO SCH (17:32)
--- NOTE | 2017-02-02 18:34 | PCM.SURGPN ---
- General Info Date of Service: 02/02/17 Date of Surgery/Procedure: 01/28/17 POD#: 5 Post-Op Diagnosis: Endoscopically unresectable tubulovillous adenomaof cecum Functional Status: Reports: pain controlled, tolerating diet, ambulating (Very slow walker), urinating (Salas catheter. We removed it again today. ) - Review of Systems General: Reports: No Symptoms HEENT: Reports: sore throat Pulmonary: Reports: no symptoms Cardiovascular: Reports: Edema Gastrointestinal: Reports: No symptoms, Flatus, Other (Had a bowel movement. ) Genitourinary: Reports: no symptoms Musculoskeletal: Reports: no symptoms Skin: Reports: no symptoms Neurological: Reports: No Symptoms Psychiatric: Reports: no symptoms - Patient Data Vitals - most recent: Last Vital Signs Temp 98.7 F 02/02/17 14:40 Pulse 64 02/02/17 14:40 Resp 16 02/02/17 14:40 BP 125/67 02/02/17 14:40 Pulse Ox 97 02/02/17 14:40 Weight - most recent: 219 lb 15.988 oz I&O - last 24 hours: Intake & Output 02/02/17 02/02/17 02/02/17 06:59 14:59 22:59 Intake Total 629 350 Output Total 225 1550 Balance 404 -1200 Lab Results last 24 hrs: Laboratory Results - last 24 hr 02/02/17 02/02/17 Range/Units 04:45 04:45 WBC 10.1 (4.5-11.0) K/uL RBC 3.65 L (4.30-5.90) M/uL Hgb 12.1 (12.0-15.0) g/dL Hct 35.0 L (40.0-54.0) % MCV 96 (80-98) fL MCH 33 H (27-31) pg MCHC 35 (32-36) % Plt Count 255 (150-400) K/uL Sodium 146 (140-148) mmol/L Potassium 3.3 L (3.6-5.2) mmol/L Chloride 109 H (100-108) mmol/L Carbon Dioxide 27 (21-32) mmol/L Anion Gap 13.3 (5.0-14.0) mmol/L BUN 34 H (7-18) mg/dL Creatinine 0.9 (0.8-1.3) mg/dL Est Cr Clr Drug Dosing 60.36 mL/min Estimated GFR (MDRD) > 60 (>60) Glucose 97 (74-106) mg/dL Calcium 8.1 L (8.5-10.1) mg/dL Slick Results last 24 hrs: Microbiology 01/30/17 10:20 Aerobic Blood Culture - Preliminary Blood - Arm, Left NO GROWTH AFTER 3 DAYS Anaerobic Blood Culture - Preliminary NO GROWTH AFTER 3 DAYS 01/30/17 10:10 Aerobic Blood Culture - Preliminary Blood - Arm, Left NO GROWTH AFTER 3 DAYS Anaerobic Blood Culture - Preliminary NO GROWTH AFTER 3 DAYS Med Orders - Current: Current Medications Hydrocodone Bitart/Acetaminophen (Andrews 325-5 Mg) 1 tab PO Q4H PRN PRN Reason: Abdominal Pain Last Admin: 02/01/17 01:04 Dose: 1 tab Albuterol (Proventil Neb Soln) 2.5 mg NEB Q4H PRN PRN Reason: Wheezing Last Admin: 02/01/17 00:59 Dose: 2.5 mg Alvimopan (Entereg) 12 mg PO Q12H [facility] Stop: 02/04/17 09:01 Last Admin: 02/02/17 09:20 Dose: 12 mg Atenolol (Tenormin) 50 mg PO DAILY [facility] Last Admin: 02/02/17 09:24 Dose: 50 mg Benzocaine/Menthol (Cepacol Sore Throat) 1 lozenge MUCMEM Q2H PRN PRN Reason: Sore Throat Last Admin: 02/02/17 15:23 Dose: 1 lozenge Bisacodyl (Dulcolax) 10 mg PO BID [facility] Last Admin: 02/02/17 09:20 Dose: 10 mg Cetirizine HCl (Zyrtec) 10 mg PO DAILY [facility] Last Admin: 02/02/17 09:19 Dose: 10 mg Cholecalciferol (Vitamin D3) 1,000 units PO DAILY [facility] Last Admin: 02/02/17 09:18 Dose: 1,000 units Divalproex Sodium (Divalproex Sodium) 250 mg PO BIDMEALS [facility] Last Admin: 02/02/17 17:32 Dose: 250 mg Enoxaparin Sodium (Lovenox) 30 mg SUBCUT Q24H [facility] Last Admin: 02/01/17 22:36 Dose: 30 mg Fluticasone Propionate (Flonase) 0 gm NASBOTH DAILY [facility] Last Admin: 02/02/17 09:21 Dose: 1 spray Furosemide (Lasix) 20 mg IVPUSH BIDDIURETIC [facility] Hydroxyzine HCl (Vistaril) 50 mg IM Q6H PRN PRN Reason: Abdominal Pain Levofloxacin 250 mg/ (Levofloxacin 500 mg) 750 mg PO ACBREAKFAST [facility] Melatonin (Melatonin) 9 mg PO BEDTIME [facility] Last Admin: 02/01/17 20:43 Dose: 9 mg Multivitamins/Minerals (Thera M Plus) 1 tab PO DAILY [facility] Last Admin: 02/02/17 09:18 Dose: 1 tab Transderm Scop Patch (Check) 0 each TOP DAILY [facility] Last Admin: 02/02/17 09:22 Dose: Not Given Ondansetron HCl (Zofran) 4 mg IVPUSH Q6H PRN PRN Reason: Nausea/Vomiting Last Admin: 01/28/17 20:12 Dose: 4 mg Pantoprazole Sodium (Protonix Iv) 40 mg IVPUSH BID [facility] Last Admin: 02/02/17 09:22 Dose: 40 mg Scopolamine (Transderm-Scop) 1.5 mg TRDERM Q72H [facility] Last Admin: 01/31/17 09:27 Dose: 1.5 mg Senna (Senna) 8.6 mg PO DAILY [facility] Last Admin: 02/02/17 09:19 Dose: 8.6 mg Simvastatin (Zocor) 80 mg PO QPM [facility] Last Admin: 02/02/17 17:32 Dose: 80 mg Sucralfate (Carafate) 1 gm PO QIDACANDBED [facility] Last Admin: 02/02/17 17:32 Dose: 1 gm Tamsulosin HCl (Flomax) 0.4 mg PO PCBREAKFAST [facility] Last Admin: 02/02/17 09:21 Dose: 0.4 mg Tramadol HCl (Ultram) 50 mg PO Q4H PRN PRN Reason: Abdominal Pain Discontinued Medications Alvimopan (Entereg) 12 mg PO ONETIME ONE Stop: 01/28/17 10:16 Last Admin: 01/28/17 12:01 Dose: 12 mg Alvimopan (Entereg) 12 mg PO Q12H [facility] Stop: 02/04/17 04:16 Last Admin: 01/28/17 17:38 Dose: Not Given Atenolol (Tenormin) 50 mg PO DAILY [facility] Cetirizine HCl (Zyrtec) 10 mg PO DAILY [facility] Dexamethasone (Dexamethasone) Confirm Administered Dose 4 mg .ROUTE .STK-MED ONE Stop: 01/28/17 12:32 Enoxaparin Sodium (Lovenox) 40 mg SUBCUT DAILY [facility] Enoxaparin Sodium (Lovenox) 40 mg SUBCUT DAILY [facility] Enoxaparin Sodium (Lovenox) 40 mg SUBCUT DAILY [facility] Last Admin: 01/30/17 12:50 Dose: Not Given Enoxaparin Sodium (Lovenox) 30 mg SUBCUT Q24H [facility] Last Admin: 01/30/17 13:11 Dose: 30 mg Ephedrine Sulfate (Ephedrine Sulfate) Confirm Administered Dose 50 mg .ROUTE .[facility]-MED ONE Stop: 01/28/17 14:36 Fentanyl (Sublimaze) Confirm Administered Dose 250 mcg .ROUTE .[facility]-MED ONE Stop: 01/28/17 12:32 Fentanyl (Sublimaze) Confirm Administered Dose 250 mcg .ROUTE .[facility]-MED ONE Stop: 01/28/17 14:26 Furosemide (Lasix) 20 mg IVPUSH ONETIME ONE Stop: 01/30/17 01:23 Last Admin: 01/30/17 02:14 Dose: 20 mg Furosemide (Lasix) 20 mg IVPUSH ONETIME ONE Stop: 02/02/17 10:16 Last Admin: 02/02/17 12:22 Dose: 20 mg Glycopyrrolate () Confirm Administered Dose 1 mg .ROUTE .[facility]-MED ONE Stop: 01/28/17 12:32 Dextrose/Lactated Ringer's (Dextrose 5%-Lactated Ringers) 1,000 mls @ 100 mls/ hr IV ASDIRECTED [facility] Last Admin: 01/28/17 11:32 Dose: 100 mls/hr Cefoxitin Sodium 2 gm/ Sodium (Chloride) 50 mls @ 100 mls/hr IV ONETIME ONE Stop: 01/28/17 13:14 Last Admin: 01/28/17 17:24 Dose: Not Given Fentanyl 2,500 mcg/ Sodium (Chloride) 250 mls @ 0 mls/hr EPIDUR TITRATE [facility]; Titrate PRN Reason: Protocol Last Titration: 01/30/17 08:19 Dose: 8 ml/hr, 8 mls/hr Sodium Chloride (Normal Saline) Confirm Administered Dose 10 mls @ as directed .ROUTE .STK-MED ONE Stop: 01/28/17 14:44 Potassium Chloride/Dextrose/Sod Cl (D5 1/2 Ns W/ 20 Meq/L Kcl) 1,000 mls @ 100 mls/hr IV ASDIRECTED [facility] Last Admin: 01/30/17 04:06 Dose: 100 mls/hr Hetastarch/Sodium Chloride (Hetastarch 6% In Normal Saline) 250 mls @ 250 mls/ hr IV ONETIME ONE Stop: 01/28/17 22:50 Last Admin: 01/28/17 22:26 Dose: 250 mls/hr Lactated Ringer's (Ringers, Lactated) 250 mls @ 250 mls/hr IV .BOLUS [facility] Last Admin: 01/29/17 03:05 Dose: 250 mls/hr Lactated Ringer's (Ringers, Lactated) 250 mls @ 250 mls/hr IV .BOLUS ONE Stop: 01/29/17 07:44 Last Admin: 01/29/17 06:30 Dose: 250 mls/hr Lactated Ringer's (Ringers, Lactated) 250 mls @ 250 mls/hr IV ONETIME ONE Stop: 01/29/17 17:59 Last Admin: 01/29/17 16:30 Dose: 250 mls/hr Lactated Ringer's (Ringers, Lactated) 500 mls @ 500 mls/hr IV BOLUS ONE Stop: 01/29/17 21:58 Last Admin: 01/29/17 21:12 Dose: 500 mls/hr Dextrose/Sodium Chloride (Dextrose 5%-1/2 Ns) 1,000 mls @ 100 mls/hr IV ASDIRECTED [facility] Last Admin: 01/30/17 07:57 Dose: 100 mls/hr Sodium Chloride (Normal Saline) 1,000 mls @ 500 mls/hr IV ASDIRECTED [facility] Stop: 01/30/17 10:16 Last Admin: 01/30/17 08:42 Dose: 500 mls/hr Levofloxacin/Dextrose 500 mg/ (Premix) 100 mls @ 100 mls/hr IV Q24H [facility] Stop: 01/30/17 11:30 Last Admin: 01/30/17 10:55 Dose: 100 mls/hr Piperacillin Sod/Tazobactam (Sod 2.25 gm/ Sodium Chloride) 50 mls @ 100 mls/hr IV Q6H [facility] Last Admin: 02/01/17 04:33 Dose: 100 mls/hr Levofloxacin/Dextrose 250 mg/ (Premix) 50 mls @ 50 mls/hr IV Q24H [facility] Last Admin: 02/02/17 10:03 Dose: 50 mls/hr Sodium Chloride (Normal Saline) 1,000 mls @ 250 mls/hr IV ASDIRECTED [facility] Sodium Chloride (Normal Saline) 1,000 mls @ 100 mls/hr IV ASDIRECTED [facility] Last Admin: 01/31/17 04:27 Dose: 100 mls/hr Sodium Chloride (Normal Saline) 1,000 mls @ 50 mls/hr IV ASDIRECTED [facility] Last Admin: 02/01/17 20:23 Dose: 50 mls/hr Ibuprofen (Motrin) 400 mg PO Q6H PRN PRN Reason: Abdominal Pain Lidocaine HCl (Xylocaine 2% Jelly) Confirm Administered Dose 10 ml .ROUTE .[employer] ONE Stop: 01/31/17 23:14 Last Admin: 01/31/17 23:27 Dose: 10 ml Lisinopril (Prinivil) 2.5 mg PO DAILY [facility] Lisinopril (Prinivil) 2.5 mg PO DAILY [facility] Last Admin: 01/30/17 11:01 Dose: 2.5 mg Naloxone HCl (Narcan) 0.1 mg IVPUSH Q5M PRN PRN Reason: RESP RATE LESS THAN 6/MINUTE Neostigmine Methylsulfate (Neostigmine) Confirm Administered Dose 5 mg .ROUTE .[employer]-MED ONE Stop: 01/28/17 12:32 Non-Formulary Medication (Cholecalciferol (Vitamin D3) [Vitamin D]) 1,000 unit PO DAILY [facility] Non-Formulary Medication (Fluticasone Propionate [Flonase Allergy Relief]) 2 spray NS DAILY [facility] Non-Formulary Medication (Multivitamin With Minerals [Multiple Vitamin]) 1 tab PO DAILY [facility] Non-Formulary Medication (Multivitamin-Min/Iron/Fa/Vit K [Multi-Day Plus Minerals Tablet]) 1 tab PO DAILY [facility] Non-Formulary Medication (Simvastatin [Simvastatin]) 80 mg PO DAILY [facility] Ondansetron HCl (Zofran) Confirm Administered Dose 4 mg .ROUTE .STK-MED ONE Stop: 01/28/17 12:32 Pantoprazole Sodium (Protonix Iv) 40 mg IVPUSH DAILY [facility] Last Admin: 01/28/17 17:37 Dose: Not Given Pantoprazole Sodium (Protonix Iv) 40 mg IVPUSH Q24H [facility] Last Admin: 01/31/17 17:11 Dose: 40 mg Potassium Chloride (Klor-Con M20) 40 meq PO ONETIME ONE Stop: 02/02/17 11:01 Last Admin: 02/02/17 10:47 Dose: 40 meq Propofol (Diprivan 20 Ml) Confirm Administered Dose 200 mg .ROUTE .STK-MED ONE Stop: 01/28/17 12:32 Rocuronium [place] (Zemuron) Confirm Administered Dose 50 mg .ROUTE .STK-MED ONE Stop: 01/28/17 12:32 Scopolamine (Transderm-Scop) Confirm Administered Dose 1.5 mg .ROUTE .STK-MED ONE Stop: 01/28/17 15:15 Scopolamine (Transderm-Scop) 1.5 mg TRDERM Q72H [facility] Last Admin: 01/28/17 17:38 Dose: Not Given Sodium Polystyrene Sulfonate (Kayexalate) 45 gm PO NOW ONE Stop: 01/30/17 08:14 Last Admin: 01/30/17 12:35 Dose: Not Given Sodium Polystyrene Sulfonate (Kayexalate) 45 gm PO NOW ONE Stop: 01/30/17 13:04 Last Admin: 01/31/17 07:49 Dose: Not Given Sodium Polystyrene Sulfonate (Kayexalate) 45 gm RECTAL NOW ONE Stop: 01/30/17 13:11 Last Admin: 01/30/17 14:10 Dose: 45 gm Tamsulosin HCl (Flomax) 0.4 mg PO PCBREAKFAST [facility] - Exam Wound/Incisions: healing well, dressing dry and intact, no drainage Quality Assessment: supplemental oxygen, urine catheter, DVT prophylaxis General: alert, oriented, cooperative, no acute distress Lungs: Clear to auscultation, Normal respiratory effort Cardiovascular: Regular Rate, Regular Rhythm Abdomen: bowel sounds present, soft, no tenderness, no distension Extremities: edema Skin: warm, dry, intact Neurological: no new focal deficit Psy/Mental Status: alert, normal affect, normal mood - Problem List & Annotations (1) Status post right hemicolectomy SNOMED Code(s): 084778522, [id number] Code(s): Z90.49 - ACQUIRED ABSENCE OF OTHER SPECIFIED PARTS OF DIGESTIVE TRACT Status: Acute Current Visit: Yes - Problem List Review Problem List Initiated/Reviewed/Updated: Yes - My Orders Last 24 Hours: Active Orders 24 hr Category Date Time Status DC Salas Catheter [Urinary Catheter Removal] [RC] Per Care 02/02/17 10:04 Active Unit Routine BASIC METABOLIC PANEL,BMP [CHEM] AM Lab 02/03/17 05:11 Ordered CBC W/O DIFF,HEMOGRAM [HEME] DAILY Lab 02/03/17 05:10 Ordered POTASSIUM,K [CHEM] Timed Lab 02/02/17 18:13 Received Benzocaine/Cetylpyrd/Menthol [Cepacol Sore Throat] Med 02/02/17 10:42 Active 1 lozenge MUCMEM Q2H PRN Furosemide [Lasix] Med 02/03/17 08:00 Active 20 mg IVPUSH BIDDIURETIC Levofloxacin [Levaquin] Med 02/03/17 07:30 Active 750 mg PO ACBREAKFAST Convert IV to Saline Lock [OM.PC] Routine Oth 02/02/17 10:42 Ordered Medication Orders Hydrocodone Bitart/Acetaminophen (Andrews 325-5 Mg) 1 tab PO Q4H PRN PRN Reason: Abdominal Pain Last Admin: 02/01/17 01:04 Dose: 1 tab Admin: 01/31/17 17:10 Dose: 1 tab Admin: 01/31/17 11:30 Dose: 1 tab Albuterol (Proventil Neb Soln) 2.5 mg NEB Q4H PRN PRN Reason: Wheezing Last Admin: 02/01/17 00:59 Dose: 2.5 mg Admin: 01/30/17 21:10 Dose: 2.5 mg Alvimopan (Entereg) 12 mg PO Q12H [facility] Stop: 02/04/17 09:01 Last Admin: 02/02/17 09:20 Dose: 12 mg Admin: 02/01/17 20:42 Dose: 12 mg Admin: 02/01/17 08:14 Dose: 12 mg Admin: 01/31/17 20:46 Dose: 12 mg Admin: 01/31/17 08:03 Dose: 12 mg Admin: 01/30/17 20:47 Dose: 12 mg Admin: 01/30/17 11:48 Dose: 12 mg Admin: 01/29/17 21:07 Dose: 12 mg Admin: 01/29/17 08:57 Dose: 12 mg Admin: 01/28/17 21:05 Dose: 12 mg Atenolol (Tenormin) 50 mg PO DAILY [facility] Last Admin: 02/02/17 09:24 Dose: 50 mg Admin: 02/01/17 08:18 Dose: 50 mg Admin: 01/31/17 08:09 Dose: 50 mg Admin: 01/30/17 11:52 Dose: 50 mg Admin: 01/29/17 08:58 Dose: 50 mg Benzocaine/Menthol (Cepacol Sore Throat) 1 lozenge MUCMEM Q2H PRN PRN Reason: Sore Throat Last Admin: 02/02/17 15:23 Dose: 1 lozenge Bisacodyl (Dulcolax) 10 mg PO BID [facility] Last Admin: 02/02/17 09:20 Dose: 10 mg Admin: 02/01/17 20:45 Dose: Admin: 02/01/17 08:14 Dose: 10 mg Admin: 01/31/17 20:46 Dose: 10 mg Admin: 01/31/17 08:02 Dose: 10 mg Admin: 01/30/17 20:46 Dose: 10 mg Admin: 01/30/17 11:49 Dose: 10 mg Admin: 01/29/17 21:07 Dose: 10 mg Admin: 01/29/17 08:56 Dose: 10 mg Cetirizine HCl (Zyrtec) 10 mg PO DAILY [facility] Last Admin: 02/02/17 09:19 Dose: 10 mg Admin: 02/01/17 08:14 Dose: 10 mg Admin: 01/31/17 08:15 Dose: 10 mg Admin: 01/30/17 11:48 Dose: 10 mg Admin: 01/29/17 08:56 Dose: 10 mg Cholecalciferol (Vitamin D3) 1,000 units PO DAILY [facility] Last Admin: 02/02/17 09:18 Dose: 1,000 units Admin: 02/01/17 08:15 Dose: 1,000 units Admin: 01/31/17 08:10 Dose: 1,000 units Admin: 01/30/17 12:06 Dose: 1,000 units Admin: 01/29/17 08:57 Dose: 1,000 units Divalproex Sodium (Divalproex Sodium) 250 mg PO BIDMEALS [facility] Last Admin: 02/02/17 17:32 Dose: 250 mg Admin: 02/02/17 09:21 Dose: 250 mg Admin: 02/01/17 17:10 Dose: 250 mg Admin: 02/01/17 08:15 Dose: 250 mg Admin: 01/31/17 16:25 Dose: 250 mg Enoxaparin Sodium (Lovenox) 30 mg SUBCUT Q24H [facility] Last Admin: 02/01/17 22:36 Dose: 30 mg Admin: 01/31/17 22:53 Dose: 30 mg Fluticasone Propionate (Flonase) 0 gm NASBOTH DAILY [facility] Last Admin: 02/02/17 09:21 Dose: 1 spray Admin: 02/01/17 08:19 Dose: 2 spray Admin: 01/31/17 08:15 Dose: 2 spray Admin: 01/30/17 12:11 Dose: 2 spray Admin: 01/29/17 08:58 Dose: 1 spray Furosemide (Lasix) 20 mg IVPUSH BIDDIURETIC [facility] Hydroxyzine HCl (Vistaril) 50 mg IM Q6H PRN PRN Reason: Abdominal Pain Levofloxacin 250 mg/ (Levofloxacin 500 mg) 750 mg PO ACBREAKFAST [facility] Melatonin (Melatonin) 9 mg PO BEDTIME [facility] Last Admin: 02/01/17 20:43 Dose: 9 mg Admin: 01/31/17 20:48 Dose: 9 mg Multivitamins/Minerals (Thera M Plus) 1 tab PO DAILY [facility] Last Admin: 02/02/17 09:18 Dose: 1 tab Admin: 02/01/17 08:17 Dose: 1 tab Admin: 01/31/17 08:10 Dose: 1 tab Admin: 01/30/17 11:52 Dose: 1 tab Admin: 01/29/17 08:58 Dose: 1 tab Transderm Scop Patch (Check) 0 each TOP DAILY [facility] Last Admin: 02/02/17 09:22 Dose: Not Given Admin: 02/01/17 08:22 Dose: Admin: 01/31/17 08:16 Dose: Admin: 01/30/17 12:00 Dose: Not Given Admin: 01/29/17 08:59 Dose: Ondansetron HCl (Zofran) 4 mg IVPUSH Q6H PRN PRN Reason: Nausea/Vomiting Last Admin: 01/28/17 20:12 Dose: 4 mg Pantoprazole Sodium (Protonix Iv) 40 mg IVPUSH BID [facility] Last Admin: 02/02/17 09:22 Dose: 40 mg Admin: 02/01/17 20:46 Dose: 40 mg Admin: 02/01/17 10:00 Dose: 40 mg Scopolamine (Transderm-Scop) 1.5 mg TRDERM Q72H [facility] Last Admin: 01/31/17 09:27 Dose: 1.5 mg Senna (Senna) 8.6 mg PO DAILY [facility] Last Admin: 02/02/17 09:19 Dose: 8.6 mg Admin: 02/01/17 08:16 Dose: 8.6 mg Admin: 01/31/17 08:11 Dose: 8.6 mg Admin: 01/30/17 12:06 Dose: 8.6 mg Admin: 01/29/17 08:58 Dose: 8.6 mg Simvastatin (Zocor) 80 mg PO QPM [facility] Last Admin: 02/02/17 17:32 Dose: 80 mg Admin: 02/01/17 17:10 Dose: 80 mg Admin: 01/31/17 16:25 Dose: 80 mg Admin: 01/30/17 16:44 Dose: 80 mg Admin: 01/29/17 17:13 Dose: 80 mg Sucralfate (Carafate) 1 gm PO QIDACANDBED [facility] Last Admin: 02/02/17 17:32 Dose: 1 gm Admin: 02/02/17 12:22 Dose: 1 gm Admin: 02/02/17 08:04 Dose: 1 gm Admin: 02/01/17 20:42 Dose: 1 gm Admin: 02/01/17 17:10 Dose: 1 gm Admin: 02/01/17 09:59 Dose: 1 gm Tamsulosin HCl (Flomax) 0.4 mg PO PCBREAKFAST [facility] Last Admin: 02/02/17 09:21 Dose: 0.4 mg Admin: 02/01/17 08:19 Dose: 0.4 mg Admin: 01/31/17 08:04 Dose: 0.4 mg Admin: 01/30/17 12:13 Dose: 0.4 mg Admin: 01/29/17 09:00 Dose: 0.4 mg Tramadol HCl (Ultram) 50 mg PO Q4H PRN PRN Reason: Abdominal Pain - Assessment Assessment (Free Text/Narrative):: Bowel function returns. Sore throat which Dr. Snider is going to investigate. - Plan Plan (Free Text/Narrative):: D/C Josue. Lasix for the edema. Oral potassium.
[2017-02-02] MEDS ORDERED: Pantoprazole 40 MG Vial IV SCH (20:00)
[2017-02-02] MEDS: Melatonin 3 MG Tab PO SCH (20:05)
[2017-02-02] MEDS: Enoxaparin 30 MG/0.3 ML Syringe SUBCUT SCH (23:30)
[2017-02-03] MEDS: Ondansetron 4 MG/2 ML SDV IVPUSH PRN (06:11)
--- NOTE | 2017-02-03 06:37 | PCM.SURGPN ---
- General Info Date of Service: 02/03/17 Date of Surgery/Procedure: 01/28/17 POD#: 6 Functional Status: Reports: pain controlled, tolerating diet, ambulating, urinating, incentive spirometry - Review of Systems General: Reports: No Symptoms HEENT: Reports: no symptoms Pulmonary: Reports: no symptoms Cardiovascular: Reports: No Symptoms Gastrointestinal: Reports: Decreased appetite, Flatus, Other (Had another BM.) Genitourinary: Reports: no symptoms Musculoskeletal: Reports: no symptoms Skin: Reports: no symptoms Neurological: Reports: No Symptoms Psychiatric: Reports: no symptoms - Patient Data Vitals - most recent: Last Vital Signs Temp 97.7 F 02/03/17 04:00 Pulse 70 02/03/17 04:00 Resp 20 02/03/17 04:00 BP 124/68 02/03/17 04:00 Pulse Ox 95 02/03/17 04:00 Weight - most recent: 219 lb 15.988 oz I&O - last 24 hours: Intake & Output 02/02/17 02/02/17 02/03/17 14:59 22:59 06:59 Intake Total 350 Output Total 1550 275 150 Balance -1200 -275 -150 Lab Results last 24 hrs: Laboratory Results - last 24 hr 02/02/17 02/03/17 02/03/17 Range/Units 18:13 04:45 04:45 WBC 8.8 (4.5-11.0) K/uL RBC 3.43 L (4.30-5.90) M/uL Hgb 11.0 L (12.0-15.0) g/dL Hct 32.7 L (40.0-54.0) % MCV 95 (80-98) fL MCH 32 H (27-31) pg MCHC 34 (32-36) % Plt Count 258 (150-400) K/uL Sodium 146 (140-148) mmol/L Potassium 3.2 L 3.2 L (3.6-5.2) mmol/L Chloride 110 H (100-108) mmol/L Carbon Dioxide 28 (21-32) mmol/L Anion Gap 11.2 (5.0-14.0) mmol/L BUN 29 H (7-18) mg/dL Creatinine 0.9 (0.8-1.3) mg/dL Est Cr Clr Drug Dosing 60.36 mL/min Estimated GFR (MDRD) > 60 (>60) Glucose 102 (74-106) mg/dL Calcium 8.1 L (8.5-10.1) mg/dL [place]lick Results last 24 hrs: Microbiology 01/30/17 10:20 Aerobic Blood Culture - Preliminary Blood - Arm, Left NO GROWTH AFTER 3 DAYS Anaerobic Blood Culture - Preliminary NO GROWTH AFTER 3 DAYS 01/30/17 10:10 Aerobic Blood Culture - Preliminary Blood - Arm, Left NO GROWTH AFTER 3 DAYS Anaerobic Blood Culture - Preliminary NO GROWTH AFTER 3 DAYS Med Orders - Current: Current Medications Hydrocodone Bitart/Acetaminophen ([place] 325-5 Mg) 1 tab PO Q4H PRN PRN Reason: Abdominal Pain Last Admin: 02/01/17 01:04 Dose: 1 tab Albuterol (Proventil Neb Soln) 2.5 mg NEB Q4H PRN PRN Reason: Wheezing Last Admin: 02/01/17 00:59 Dose: 2.5 mg Alvimopan (Entereg) 12 mg PO Q12H [facility] Stop: 02/04/17 09:01 Last Admin: 02/02/17 20:06 Dose: 12 mg Atenolol (Tenormin) 50 mg PO DAILY [facility] Last Admin: 02/02/17 09:24 Dose: 50 mg Benzocaine/Menthol (Cepacol Sore Throat) 1 lozenge MUCMEM Q2H PRN PRN Reason: Sore Throat Last Admin: 02/02/17 15:23 Dose: 1 lozenge Bisacodyl (Dulcolax) 10 mg PO BID [facility] Last Admin: 02/02/17 20:05 Dose: 10 mg Cetirizine HCl (Zyrtec) 10 mg PO DAILY [facility] Last Admin: 02/02/17 09:19 Dose: 10 mg Cholecalciferol (Vitamin D3) 1,000 units PO DAILY [facility] Last Admin: 02/02/17 09:18 Dose: 1,000 units Divalproex Sodium (Divalproex Sodium) 250 mg PO BIDMEALS [facility] Last Admin: 02/02/17 17:32 Dose: 250 mg Enoxaparin Sodium (Lovenox) 30 mg SUBCUT Q24H [facility] Last Admin: 02/02/17 23:30 Dose: 30 mg Fluticasone Propionate (Flonase) 0 gm NASBOTH DAILY [facility] Last Admin: 02/02/17 09:21 Dose: 1 spray Furosemide (Lasix) 20 mg IVPUSH BIDDIURETIC [facility] Hydroxyzine HCl (Vistaril) 50 mg IM Q6H PRN PRN Reason: Abdominal Pain Levofloxacin 250 mg/ (Levofloxacin 500 mg) 750 mg PO ACBREAKFAST [facility] Melatonin (Melatonin) 9 mg PO BEDTIME [facility] Last Admin: 02/02/17 20:05 Dose: 9 mg Multivitamins/Minerals (Thera M Plus) 1 tab PO DAILY [facility] Last Admin: 02/02/17 09:18 Dose: 1 tab Transderm Scop Patch (Check) 0 each TOP DAILY [facility] Last Admin: 02/02/17 09:22 Dose: Not Given Ondansetron HCl (Zofran) 4 mg IVPUSH Q6H PRN PRN Reason: Nausea/Vomiting Last Admin: 02/03/17 06:11 Dose: 4 mg Pantoprazole Sodium (Protonix Iv) 40 mg IVPUSH BID [facility] Last Admin: 02/02/17 20:08 Dose: 40 mg Potassium Chloride (Klor-Con M20) 40 meq PO DAILY [facility] Potassium Chloride (Klor-Con M20) 40 meq PO BID [facility] Scopolamine (Transderm-Scop) 1.5 mg TRDERM Q72H [facility] Last Admin: 01/31/17 09:27 Dose: 1.5 mg Senna (Senna) 8.6 mg PO DAILY [facility] Last Admin: 02/02/17 09:19 Dose: 8.6 mg Simvastatin (Zocor) 80 mg PO QPM [facility] Last Admin: 02/02/17 17:32 Dose: 80 mg Sucralfate (Carafate) 1 gm PO QIDACANDBED [facility] Last Admin: 02/02/17 20:04 Dose: 1 gm Tamsulosin HCl (Flomax) 0.4 mg PO PCBREAKFAST [facility] Last Admin: 02/02/17 09:21 Dose: 0.4 mg Tramadol HCl (Ultram) 50 mg PO Q4H PRN PRN Reason: Abdominal Pain Discontinued Medications Alvimopan (Entereg) 12 mg PO ONETIME ONE Stop: 01/28/17 10:16 Last Admin: 01/28/17 12:01 Dose: 12 mg Alvimopan (Entereg) 12 mg PO Q12H [facility] Stop: 02/04/17 04:16 Last Admin: 01/28/17 17:38 Dose: Not Given Atenolol (Tenormin) 50 mg PO DAILY [facility] Cetirizine HCl (Zyrtec) 10 mg PO DAILY [facility] Clopidogrel Bisulfate (Plavix) 75 mg PO DAILY [facility] Dexamethasone (Dexamethasone) Confirm Administered Dose 4 mg .ROUTE .STK-MED ONE Stop: 01/28/17 12:32 Enoxaparin Sodium (Lovenox) 40 mg SUBCUT DAILY [facility] Enoxaparin Sodium (Lovenox) 40 mg SUBCUT DAILY [facility] Enoxaparin Sodium (Lovenox) 40 mg SUBCUT DAILY [facility] Last Admin: 01/30/17 12:50 Dose: Not Given Enoxaparin Sodium (Lovenox) 30 mg SUBCUT Q24H [facility] Last Admin: 01/30/17 13:11 Dose: 30 mg Ephedrine Sulfate (Ephedrine Sulfate) Confirm Administered Dose 50 mg .ROUTE .STK-MED ONE Stop: 01/28/17 14:36 Fentanyl (Sublimaze) Confirm Administered Dose 250 mcg .ROUTE .STK-MED ONE Stop: 01/28/17 12:32 Fentanyl (Sublimaze) Confirm Administered Dose 250 mcg .ROUTE .STK-MED ONE Stop: 01/28/17 14:26 Furosemide (Lasix) 20 mg IVPUSH ONETIME ONE Stop: 01/30/17 01:23 Last Admin: 01/30/17 02:14 Dose: 20 mg Furosemide (Lasix) 20 mg IVPUSH ONETIME ONE Stop: 02/02/17 10:16 Last Admin: 02/02/17 12:22 Dose: 20 mg Glycopyrrolate () Confirm Administered Dose 1 mg .ROUTE .STK-MED ONE Stop: 01/28/17 12:32 Dextrose/Lactated Ringer's (Dextrose 5%-Lactated Ringers) 1,000 mls @ 100 mls/ hr IV ASDIRECTED [facility] Last Admin: 01/28/17 11:32 Dose: 100 mls/hr Cefoxitin Sodium 2 gm/ Sodium (Chloride) 50 mls @ 100 mls/hr IV ONETIME ONE Stop: 01/28/17 13:14 Last Admin: 01/28/17 17:24 Dose: Not Given Fentanyl 2,500 mcg/ Sodium (Chloride) 250 mls @ 0 mls/hr EPIDUR TITRATE [facility]; Titrate PRN Reason: Protocol Last Titration: 01/30/17 08:19 Dose: 8 ml/hr, 8 mls/hr Sodium Chloride (Normal Saline) Confirm Administered Dose 10 mls @ as directed .ROUTE .STK-MED ONE Stop: 01/28/17 14:44 Potassium Chloride/Dextrose/Sod Cl (D5 1/2 Ns W/ 20 Meq/L Kcl) 1,000 mls @ 100 mls/hr IV ASDIRECTED [facility] Last Admin: 01/30/17 04:06 Dose: 100 mls/hr Hetastarch/Sodium Chloride (Hetastarch 6% In Normal Saline) 250 mls @ 250 mls/ hr IV ONETIME ONE Stop: 01/28/17 22:50 Last Admin: 01/28/17 22:26 Dose: 250 mls/hr Lactated Ringer's (Ringers, Lactated) 250 mls @ 250 mls/hr IV .BOLUS [facility] Last Admin: 01/29/17 03:05 Dose: 250 mls/hr Lactated Ringer's (Ringers, Lactated) 250 mls @ 250 mls/hr IV .BOLUS ONE Stop: 01/29/17 07:44 Last Admin: 01/29/17 06:30 Dose: 250 mls/hr Lactated Ringer's (Ringers, Lactated) 250 mls @ 250 mls/hr IV ONETIME ONE Stop: 01/29/17 17:59 Last Admin: 01/29/17 16:30 Dose: 250 mls/hr Lactated Ringer's (Ringers, Lactated) 500 mls @ 500 mls/hr IV BOLUS ONE Stop: 01/29/17 21:58 Last Admin: 01/29/17 21:12 Dose: 500 mls/hr Dextrose/Sodium Chloride (Dextrose 5%-1/2 Ns) 1,000 mls @ 100 mls/hr IV ASDIRECTED [facility] Last Admin: 01/30/17 07:57 Dose: 100 mls/hr Sodium Chloride (Normal Saline) 1,000 mls @ 500 mls/hr IV ASDIRECTED [facility] Stop: 01/30/17 10:16 Last Admin: 01/30/17 08:42 Dose: 500 mls/hr Levofloxacin/Dextrose 500 mg/ (Premix) 100 mls @ 100 mls/hr IV Q24H [facility] Stop: 01/30/17 11:30 Last Admin: 01/30/17 10:55 Dose: 100 mls/hr Piperacillin Sod/Tazobactam (Sod 2.25 gm/ Sodium Chloride) 50 mls @ 100 mls/hr IV Q6H [facility] Last Admin: 02/01/17 04:33 Dose: 100 mls/hr Levofloxacin/Dextrose 250 mg/ (Premix) 50 mls @ 50 mls/hr IV Q24H [facility] Last Admin: 02/02/17 10:03 Dose: 50 mls/hr Sodium Chloride (Normal Saline) 1,000 mls @ 250 mls/hr IV ASDIRECTED [facility] Sodium Chloride (Normal Saline) 1,000 mls @ 100 mls/hr IV ASDIRECTED [facility] Last Admin: 01/31/17 04:27 Dose: 100 mls/hr Sodium Chloride (Normal Saline) 1,000 mls @ 50 mls/hr IV ASDIRECTED [facility] Last Admin: 02/01/17 20:23 Dose: 50 mls/hr Ibuprofen (Motrin) 400 mg PO Q6H PRN PRN Reason: Abdominal Pain Lidocaine HCl (Xylocaine 2% Jelly) Confirm Administered Dose 10 ml .ROUTE .STK- MED ONE Stop: 01/31/17 23:14 Last Admin: 01/31/17 23:27 Dose: 10 ml Lisinopril (Prinivil) 2.5 mg PO DAILY [facility] Lisinopril (Prinivil) 2.5 mg PO DAILY [facility] Last Admin: 01/30/17 11:01 Dose: 2.5 mg Naloxone HCl (Narcan) 0.1 mg IVPUSH Q5M PRN PRN Reason: RESP RATE LESS THAN 6/MINUTE Neostigmine Methylsulfate (Neostigmine) Confirm Administered Dose 5 mg .ROUTE .STK-MED ONE Stop: 01/28/17 12:32 Non-Formulary Medication (Cholecalciferol (Vitamin D3) [Vitamin D]) 1,000 unit PO DAILY [facility] Non-Formulary Medication (Fluticasone Propionate [Flonase Allergy Relief]) 2 spray NS DAILY [facility] Non-Formulary Medication (Multivitamin With Minerals [Multiple Vitamin]) 1 tab PO DAILY [facility] Non-Formulary Medication (Multivitamin-Min/Iron/Fa/Vit K [Multi-Day Plus Minerals Tablet]) 1 tab PO DAILY [facility] Non-Formulary Medication (Simvastatin [Simvastatin]) 80 mg PO DAILY [facility] Ondansetron HCl (Zofran) Confirm Administered Dose 4 mg .ROUTE .STK-MED ONE Stop: 01/28/17 12:32 Pantoprazole Sodium (Protonix Iv) 40 mg IVPUSH DAILY [facility] Last Admin: 01/28/17 17:37 Dose: Not Given Pantoprazole Sodium (Protonix Iv) 40 mg IVPUSH Q24H [facility] Last Admin: 01/31/17 17:11 Dose: 40 mg Pantoprazole Sodium (Protonix Iv) 40 mg IV Q24H [facility] Potassium Chloride (Klor-Con M20) 40 meq PO ONETIME ONE Stop: 02/02/17 11:01 Last Admin: 02/02/17 10:47 Dose: 40 meq Potassium Chloride (Klor-Con M20) 40 meq PO ONETIME ONE Stop: 02/02/17 19:28 Last Admin: 02/02/17 20:04 Dose: 40 meq Propofol (Diprivan 20 Ml) Confirm Administered Dose 200 mg .ROUTE .STK-MED ONE Stop: 01/28/17 12:32 Rocuronium [place] (Zemuron) Confirm Administered Dose 50 mg .ROUTE .STK-MED ONE Stop: 01/28/17 12:32 Scopolamine (Transderm-Scop) Confirm Administered Dose 1.5 mg .ROUTE .STK-MED ONE Stop: 01/28/17 15:15 Scopolamine (Transderm-Scop) 1.5 mg TRDERM Q72H [facility] Last Admin: 01/28/17 17:38 Dose: Not Given Sodium Polystyrene Sulfonate (Kayexalate) 45 gm PO NOW ONE Stop: 01/30/17 08:14 Last Admin: 01/30/17 12:35 Dose: Not Given Sodium Polystyrene Sulfonate (Kayexalate) 45 gm PO NOW ONE Stop: 01/30/17 13:04 Last Admin: 01/31/17 07:49 Dose: Not Given Sodium Polystyrene Sulfonate (Kayexalate) 45 gm RECTAL NOW ONE Stop: 01/30/17 13:11 Last Admin: 01/30/17 14:10 Dose: 45 gm Tamsulosin HCl (Flomax) 0.4 mg PO PCBREAKFAST [facility] - Exam Wound/Incisions: healing well, dressing dry and intact, no drainage General: alert, oriented, cooperative, no acute distress Lungs: Clear to auscultation, Normal respiratory effort Cardiovascular: Regular Rate, Regular Rhythm Abdomen: bowel sounds present, soft, no tenderness, no distension Extremities: edema Skin: warm, dry, intact Neurological: no new focal deficit Psy/Mental Status: alert, normal affect, normal mood - Problem List & Annotations (1) Status post right hemicolectomy SNOMED Code(s): 490545586, 973801049 Code(s): Z90.49 - ACQUIRED ABSENCE OF OTHER SPECIFIED PARTS OF DIGESTIVE TRACT Status: Acute Current Visit: Yes - Problem List Review Problem List Initiated/Reviewed/Updated: Yes - My Orders Last 24 Hours: Active Orders 24 hr Category Date Time Status Benzocaine/Cetylpyrd/Menthol [Cepacol Sore Throat] Med 02/02/17 10:42 Active 1 lozenge MUCMEM Q2H PRN Furosemide [Lasix] Med 02/03/17 08:00 Active 20 mg IVPUSH BIDDIURETIC Levofloxacin [Levaquin] Med 02/03/17 07:30 Active 750 mg PO ACBREAKFAST Potassium Chloride [Klor-Con M20] Med 02/03/17 06:45 Ordered 40 meq PO BID Potassium Chloride [Klor-Con M20] Med 02/03/17 09:00 Active 40 meq PO DAILY Convert IV to Saline Lock [OM.PC] Routine Oth 02/02/17 10:42 Ordered Medication Orders Hydrocodone Bitart/Acetaminophen ([place] 325-5 Mg) 1 tab PO Q4H PRN PRN Reason: Abdominal Pain Last Admin: 02/01/17 01:04 Dose: 1 tab Admin: 01/31/17 17:10 Dose: 1 tab Admin: 01/31/17 11:30 Dose: 1 tab Albuterol (Proventil Neb Soln) 2.5 mg NEB Q4H PRN PRN Reason: Wheezing Last Admin: 02/01/17 00:59 Dose: 2.5 mg Admin: 01/30/17 21:10 Dose: 2.5 mg Alvimopan (Entereg) 12 mg PO Q12H [facility] Stop: 02/04/17 09:01 Last Admin: 02/02/17 20:06 Dose: 12 mg Admin: 02/02/17 09:20 Dose: 12 mg Admin: 02/01/17 20:42 Dose: 12 mg Admin: 02/01/17 08:14 Dose: 12 mg Admin: 01/31/17 20:46 Dose: 12 mg Admin: 01/31/17 08:03 Dose: 12 mg Admin: 01/30/17 20:47 Dose: 12 mg Admin: 01/30/17 11:48 Dose: 12 mg Admin: 01/29/17 21:07 Dose: 12 mg Admin: 01/29/17 08:57 Dose: 12 mg Admin: 01/28/17 21:05 Dose: 12 mg Atenolol (Tenormin) 50 mg PO DAILY [facility] Last Admin: 02/02/17 09:24 Dose: 50 mg Admin: 02/01/17 08:18 Dose: 50 mg Admin: 01/31/17 08:09 Dose: 50 mg Admin: 01/30/17 11:52 Dose: 50 mg Admin: 01/29/17 08:58 Dose: 50 mg Benzocaine/Menthol (Cepacol Sore Throat) 1 lozenge MUCMEM Q2H PRN PRN Reason: Sore Throat Last Admin: 02/02/17 15:23 Dose: 1 lozenge Bisacodyl (Dulcolax) 10 mg PO BID [facility] Last Admin: 02/02/17 20:05 Dose: 10 mg Admin: 02/02/17 09:20 Dose: 10 mg Admin: 02/01/17 20:45 Dose: Admin: 02/01/17 08:14 Dose: 10 mg Admin: 01/31/17 20:46 Dose: 10 mg Admin: 01/31/17 08:02 Dose: 10 mg Admin: 01/30/17 20:46 Dose: 10 mg Admin: 01/30/17 11:49 Dose: 10 mg Admin: 01/29/17 21:07 Dose: 10 mg Admin: 01/29/17 08:56 Dose: 10 mg Cetirizine HCl (Zyrtec) 10 mg PO DAILY [facility] Last Admin: 02/02/17 09:19 Dose: 10 mg Admin: 02/01/17 08:14 Dose: 10 mg Admin: 01/31/17 08:15 Dose: 10 mg Admin: 01/30/17 11:48 Dose: 10 mg Admin: 01/29/17 08:56 Dose: 10 mg Cholecalciferol (Vitamin D3) 1,000 units PO DAILY [facility] Last Admin: 02/02/17 09:18 Dose: 1,000 units Admin: 02/01/17 08:15 Dose: 1,000 units Admin: 01/31/17 08:10 Dose: 1,000 units Admin: 01/30/17 12:06 Dose: 1,000 units Admin: 01/29/17 08:57 Dose: 1,000 units Divalproex Sodium (Divalproex Sodium) 250 mg PO BIDMEALS [facility] Last Admin: 02/02/17 17:32 Dose: 250 mg Admin: 02/02/17 09:21 Dose: 250 mg Admin: 02/01/17 17:10 Dose: 250 mg Admin: 02/01/17 08:15 Dose: 250 mg Admin: 01/31/17 16:25 Dose: 250 mg Enoxaparin Sodium (Lovenox) 30 mg SUBCUT Q24H [facility] Last Admin: 02/02/17 23:30 Dose: 30 mg Admin: 02/01/17 22:36 Dose: 30 mg Admin: 01/31/17 22:53 Dose: 30 mg Fluticasone Propionate (Flonase) 0 gm NASBOTH DAILY [facility] Last Admin: 02/02/17 09:21 Dose: 1 spray Admin: 02/01/17 08:19 Dose: 2 spray Admin: 01/31/17 08:15 Dose: 2 spray Admin: 01/30/17 12:11 Dose: 2 spray Admin: 01/29/17 08:58 Dose: 1 spray Furosemide (Lasix) 20 mg IVPUSH BIDDIURETIC [facility] Hydroxyzine HCl (Vistaril) 50 mg IM Q6H PRN PRN Reason: Abdominal Pain Levofloxacin 250 mg/ (Levofloxacin 500 mg) 750 mg PO ACBREAKFAST [facility] Melatonin (Melatonin) 9 mg PO BEDTIME [facility] Last Admin: 02/02/17 20:05 Dose: 9 mg Admin: 02/01/17 20:43 Dose: 9 mg Admin: 01/31/17 20:48 Dose: 9 mg Multivitamins/Minerals (Thera M Plus) 1 tab PO DAILY [facility] Last Admin: 02/02/17 09:18 Dose: 1 tab Admin: 02/01/17 08:17 Dose: 1 tab Admin: 01/31/17 08:10 Dose: 1 tab Admin: 01/30/17 11:52 Dose: 1 tab Admin: 01/29/17 08:58 Dose: 1 tab Transderm Scop Patch (Check) 0 each TOP DAILY [facility] Last Admin: 02/02/17 09:22 Dose: Not Given Admin: 02/01/17 08:22 Dose: Admin: 01/31/17 08:16 Dose: Admin: 01/30/17 12:00 Dose: Not Given Admin: 01/29/17 08:59 Dose: Ondansetron HCl (Zofran) 4 mg IVPUSH Q6H PRN PRN Reason: Nausea/Vomiting Last Admin: 02/03/17 06:11 Dose: 4 mg Admin: 01/28/17 20:12 Dose: 4 mg Pantoprazole Sodium (Protonix Iv) 40 mg IVPUSH BID [facility] Last Admin: 02/02/17 20:08 Dose: 40 mg Admin: 02/02/17 09:22 Dose: 40 mg Admin: 02/01/17 20:46 Dose: 40 mg Admin: 02/01/17 10:00 Dose: 40 mg Potassium Chloride (Klor-Con M20) 40 meq PO DAILY [facility] Potassium Chloride (Klor-Con M20) 40 meq PO BID [facility] Scopolamine (Transderm-Scop) 1.5 mg TRDERM Q72H [facility] Last Admin: 01/31/17 09:27 Dose: 1.5 mg Senna (Senna) 8.6 mg PO DAILY [facility] Last Admin: 02/02/17 09:19 Dose: 8.6 mg Admin: 02/01/17 08:16 Dose: 8.6 mg Admin: 01/31/17 08:11 Dose: 8.6 mg Admin: 01/30/17 12:06 Dose: 8.6 mg Admin: 01/29/17 08:58 Dose: 8.6 mg Simvastatin (Zocor) 80 mg PO QPM [facility] Last Admin: 02/02/17 17:32 Dose: 80 mg Admin: 02/01/17 17:10 Dose: 80 mg Admin: 01/31/17 16:25 Dose: 80 mg Admin: 01/30/17 16:44 Dose: 80 mg Admin: 01/29/17 17:13 Dose: 80 mg Sucralfate (Carafate) 1 gm PO QIDACANDBED [facility] Last Admin: 02/02/17 20:04 Dose: 1 gm Admin: 02/02/17 17:32 Dose: 1 gm Admin: 02/02/17 12:22 Dose: 1 gm Admin: 02/02/17 08:04 Dose: 1 gm Admin: 02/01/17 20:42 Dose: 1 gm Admin: 02/01/17 17:10 Dose: 1 gm Admin: 02/01/17 09:59 Dose: 1 gm Tamsulosin HCl (Flomax) 0.4 mg PO PCBREAKFAST [facility] Last Admin: 02/02/17 09:21 Dose: 0.4 mg Admin: 02/01/17 08:19 Dose: 0.4 mg Admin: 01/31/17 08:04 Dose: 0.4 mg Admin: 01/30/17 12:13 Dose: 0.4 mg Admin: 01/29/17 09:00 Dose: 0.4 mg Tramadol HCl (Ultram) 50 mg PO Q4H PRN PRN Reason: Abdominal Pain - Assessment Assessment (Free Text/Narrative):: Potassium is still low. - Plan Plan (Free Text/Narrative):: More potassium.
[2017-02-03] MEDS ORDERED: Potassium Chloride 20 MEQ Tab.ER PO SCH ×2 (08:00→09:00)
[2017-02-03] MEDS: Sucralfate Suspension 1 GM/10 ML Cup PO SCH ×4 (08:00→20:08)
[2017-02-03] MEDS: Tamsulosin 0.4 MG Cap.ER PO SCH (08:01)
[2017-02-03] MEDS: Bisacodyl 5 MG Tab PO SCH ×2 (08:01→21:24)
[2017-02-03] MEDS: Divalproex Sodium Delayed-Release 250 MG Tab.CR PO SCH (08:01)
[2017-02-03] MEDS: Pantoprazole 40 MG Vial IVPUSH SCH (08:02)
[2017-02-03] MEDS: Fluticasone Propionate Nasal Spray 16 GM Bottle NASBOTH SCH (08:02)
[2017-02-03] MEDS: Sennosides 8.6 MG Tab PO SCH (08:02)
[2017-02-03] MEDS: Atenolol 50 MG Tab PO SCH (08:03)
[2017-02-03] MEDS: Cetirizine 10 MG Tab PO SCH (08:04)
[2017-02-03] MEDS: Multivitamins with Iron/Calcium/Folic Acid/Minerals Tab PO SCH (08:04)
[2017-02-03] MEDS: Cholecalciferol (Vitamin D3) 1,000 Unit Tab PO SCH (08:04)
[2017-02-03] MEDS: Furosemide 20 MG/2 ML VIAL IVPUSH SCH ×2 (08:13→13:38)
[2017-02-03] MEDS: TRANSDERM SCOP CHECK TOP SCH (08:24)
[2017-02-03] MEDS ORDERED: Clopidogrel 75 MG Tab PO SCH (09:00)
[2017-02-03] MEDS ORDERED: Levofloxacin 250 MG Tab PO SCH (09:00)
[2017-02-03] MEDS ORDERED: Levofloxacin 500 MG Tab PO SCH (09:00)
--- NOTE | 2017-02-03 10:20 | PCM.CONSN ---
- General Info Date of Service: 02/03/17 Functional Status: Reports: pain controlled, tolerating diet, ambulating - Review of Systems Cardiovascular: Reports: Edema Gastrointestinal: Denies: Abdominal pain Neurological: Denies: Confusion Systems Review Comment:: No acute events overnight. Strength is improving today and he's been able to walk further in the hallway. Lower extremity edema improved with diuresis last night but he still has a fair amount of swelling. No complaints of cough or shortness of breath today. No fevers overnight. Potassium level remains low. Tolerating diet but not much of an appetite. Bowels have been moving. - Patient Data Vitals - most recent: Last Vital Signs Temp 36.3 C 02/03/17 07:01 Pulse 70 02/03/17 08:03 Resp 18 02/03/17 07:01 BP 128/68 02/03/17 08:03 Pulse Ox 94 L 02/03/17 07:01 Weight - most recent: 99.79 kg I&O - last 24 hours: Intake & Output 02/02/17 02/03/17 02/03/17 22:59 06:59 14:59 Output Total 275 150 900 Balance -275 -150 -900 Lab Results last 24 hrs: Laboratory Results - last 24 hr 02/02/17 02/03/17 02/03/17 Range/Units 18:13 04:45 04:45 WBC 8.8 (4.5-11.0) K/uL RBC 3.43 L (4.30-5.90) M/uL Hgb 11.0 L (12.0-15.0) g/dL Hct 32.7 L (40.0-54.0) % MCV 95 (80-98) fL MCH 32 H (27-31) pg MCHC 34 (32-36) % Plt Count 258 (150-400) K/uL Sodium 146 (140-148) mmol/L Potassium 3.2 L 3.2 L (3.6-5.2) mmol/L Chloride 110 H (100-108) mmol/L Carbon Dioxide 28 (21-32) mmol/L Anion Gap 11.2 (5.0-14.0) mmol/L BUN 29 H (7-18) mg/dL Creatinine 0.9 (0.8-1.3) mg/dL Est Cr Clr Drug Dosing 60.36 mL/min Estimated GFR (MDRD) > 60 (>60) Glucose 102 (74-106) mg/dL Calcium 8.1 L (8.5-10.1) mg/dL Slick Results last 24 hrs: Microbiology 01/30/17 10:20 Aerobic Blood Culture - Preliminary Blood - Arm, Left NO GROWTH AFTER 3 DAYS Anaerobic Blood Culture - Preliminary NO GROWTH AFTER 3 DAYS 01/30/17 10:10 Aerobic Blood Culture - Preliminary Blood - Arm, Left NO GROWTH AFTER 3 DAYS Anaerobic Blood Culture - Preliminary NO GROWTH AFTER 3 DAYS Med Orders - Current: Current Medications Hydrocodone Bitart/Acetaminophen (Ewing 325-5 Mg) 1 tab PO Q4H PRN PRN Reason: Abdominal Pain Last Admin: 02/01/17 01:04 Dose: 1 tab Albuterol (Proventil Neb Soln) 2.5 mg NEB Q4H PRN PRN Reason: Wheezing Last Admin: 02/01/17 00:59 Dose: 2.5 mg Alvimopan (Entereg) 12 mg PO Q12H [facility] Stop: 02/04/17 09:01 Last Admin: 02/03/17 08:01 Dose: 12 mg Atenolol (Tenormin) 50 mg PO DAILY [facility] Last Admin: 02/03/17 08:03 Dose: 50 mg Benzocaine/Menthol (Cepacol Sore Throat) 1 lozenge MUCMEM Q2H PRN PRN Reason: Sore Throat Last Admin: 02/02/17 15:23 Dose: 1 lozenge Bisacodyl (Dulcolax) 10 mg PO BID [facility] Last Admin: 02/03/17 08:01 Dose: 10 mg Cetirizine HCl (Zyrtec) 10 mg PO DAILY [facility] Last Admin: 02/03/17 08:04 Dose: 10 mg Cholecalciferol (Vitamin D3) 1,000 units PO DAILY [facility] Last Admin: 02/03/17 08:04 Dose: 1,000 units Enoxaparin Sodium (Lovenox) 30 mg SUBCUT Q24H [facility] Last Admin: 02/02/17 23:30 Dose: 30 mg Fluticasone Propionate (Flonase) 0 gm NASBOTH DAILY [facility] Last Admin: 02/03/17 08:02 Dose: 1 spray Furosemide (Lasix) 20 mg IVPUSH BIDDIURETIC [facility] Last Admin: 02/03/17 08:13 Dose: 20 mg Hydroxyzine HCl (Vistaril) 50 mg IM Q6H PRN PRN Reason: Abdominal Pain Levofloxacin 250 mg/ (Levofloxacin 500 mg) 750 mg PO ACBREAKFAST [facility] Last Admin: 02/03/17 08:00 Dose: 750 mg Melatonin (Melatonin) 9 mg PO BEDTIME [facility] Last Admin: 02/02/17 20:05 Dose: 9 mg Multivitamins/Minerals (Thera M Plus) 1 tab PO DAILY [facility] Last Admin: 02/03/17 08:04 Dose: 1 tab Transderm Scop Patch (Check) 0 each TOP DAILY [facility] Last Admin: 02/03/17 08:24 Dose: Not Given Ondansetron HCl (Zofran) 4 mg IVPUSH Q6H PRN PRN Reason: Nausea/Vomiting Last Admin: 02/03/17 06:11 Dose: 4 mg Scopolamine (Transderm-Scop) 1.5 mg TRDERM Q72H [facility] Last Admin: 01/31/17 09:27 Dose: 1.5 mg Senna (Senna) 8.6 mg PO DAILY [facility] Last Admin: 02/03/17 08:02 Dose: 8.6 mg Simvastatin (Zocor) 80 mg PO QPM [facility] Last Admin: 02/02/17 17:32 Dose: 80 mg Sucralfate (Carafate) 1 gm PO QIDACANDBED [facility] Last Admin: 02/03/17 08:00 Dose: 1 gm Tamsulosin HCl (Flomax) 0.4 mg PO PCBREAKFAST [facility] Last Admin: 02/03/17 08:01 Dose: 0.4 mg Tramadol HCl (Ultram) 50 mg PO Q4H PRN PRN Reason: Abdominal Pain Discontinued Medications Alvimopan (Entereg) 12 mg PO ONETIME ONE Stop: 01/28/17 10:16 Last Admin: 01/28/17 12:01 Dose: 12 mg Alvimopan (Entereg) 12 mg PO Q12H [facility] Stop: 02/04/17 04:16 Last Admin: 01/28/17 17:38 Dose: Not Given Atenolol (Tenormin) 50 mg PO DAILY [facility] Cetirizine HCl (Zyrtec) 10 mg PO DAILY [facility] Clopidogrel Bisulfate (Plavix) 75 mg PO DAILY [facility] Dexamethasone (Dexamethasone) Confirm Administered Dose 4 mg .ROUTE .STK-MED ONE Stop: 01/28/17 12:32 Divalproex Sodium (Divalproex Sodium) 250 mg PO BIDMEALS [facility] Last Admin: 02/03/17 08:01 Dose: 250 mg Enoxaparin Sodium (Lovenox) 40 mg SUBCUT DAILY [facility] Enoxaparin Sodium (Lovenox) 40 mg SUBCUT DAILY [facility] Enoxaparin Sodium (Lovenox) 40 mg SUBCUT DAILY [facility] Last Admin: 01/30/17 12:50 Dose: Not Given Enoxaparin Sodium (Lovenox) 30 mg SUBCUT Q24H [facility] Last Admin: 01/30/17 13:11 Dose: 30 mg Ephedrine Sulfate (Ephedrine Sulfate) Confirm Administered Dose 50 mg .ROUTE .STK-MED ONE Stop: 01/28/17 14:36 Fentanyl (Sublimaze) Confirm Administered Dose 250 mcg .ROUTE .STK-MED ONE Stop: 01/28/17 12:32 Fentanyl (Sublimaze) Confirm Administered Dose 250 mcg .ROUTE .STK-MED ONE Stop: 01/28/17 14:26 Furosemide (Lasix) 20 mg IVPUSH ONETIME ONE Stop: 01/30/17 01:23 Last Admin: 01/30/17 02:14 Dose: 20 mg Furosemide (Lasix) 20 mg IVPUSH ONETIME ONE Stop: 02/02/17 10:16 Last Admin: 02/02/17 12:22 Dose: 20 mg Glycopyrrolate () Confirm Administered Dose 1 mg .ROUTE .STK-MED ONE Stop: 01/28/17 12:32 Dextrose/Lactated Ringer's (Dextrose 5%-Lactated Ringers) 1,000 mls @ 100 mls/ hr IV ASDIRECTED [facility] Last Admin: 01/28/17 11:32 Dose: 100 mls/hr Cefoxitin Sodium 2 gm/ Sodium (Chloride) 50 mls @ 100 mls/hr IV ONETIME ONE Stop: 01/28/17 13:14 Last Admin: 01/28/17 17:24 Dose: Not Given Fentanyl 2,500 mcg/ Sodium (Chloride) 250 mls @ 0 mls/hr EPIDUR TITRATE [facility]; Titrate PRN Reason: Protocol Last Titration: 01/30/17 08:19 Dose: 8 ml/hr, 8 mls/hr Sodium Chloride (Normal Saline) Confirm Administered Dose 10 mls @ as directed .ROUTE .STK-MED ONE Stop: 01/28/17 14:44 Potassium Chloride/Dextrose/Sod Cl (D5 1/2 Ns W/ 20 Meq/L Kcl) 1,000 mls @ 100 mls/hr IV ASDIRECTED [facility] Last Admin: 01/30/17 04:06 Dose: 100 mls/hr Hetastarch/Sodium Chloride (Hetastarch 6% In Normal Saline) 250 mls @ 250 mls/ hr IV ONETIME ONE Stop: 01/28/17 22:50 Last Admin: 01/28/17 22:26 Dose: 250 mls/hr Lactated Ringer's (Ringers, Lactated) 250 mls @ 250 mls/hr IV .BOLUS [facility] Last Admin: 01/29/17 03:05 Dose: 250 mls/hr Lactated Ringer's (Ringers, Lactated) 250 mls @ 250 mls/hr IV .BOLUS ONE Stop: 01/29/17 07:44 Last Admin: 01/29/17 06:30 Dose: 250 mls/hr Lactated Ringer's (Ringers, Lactated) 250 mls @ 250 mls/hr IV ONETIME ONE Stop: 01/29/17 17:59 Last Admin: 01/29/17 16:30 Dose: 250 mls/hr Lactated Ringer's (Ringers, Lactated) 500 mls @ 500 mls/hr IV BOLUS ONE Stop: 01/29/17 21:58 Last Admin: 01/29/17 21:12 Dose: 500 mls/hr Dextrose/Sodium Chloride (Dextrose 5%-1/2 Ns) 1,000 mls @ 100 mls/hr IV ASDIRECTED [facility] Last Admin: 01/30/17 07:57 Dose: 100 mls/hr Sodium Chloride (Normal Saline) 1,000 mls @ 500 mls/hr IV ASDIRECTED [facility] Stop: 01/30/17 10:16 Last Admin: 01/30/17 08:42 Dose: 500 mls/hr Levofloxacin/Dextrose 500 mg/ (Premix) 100 mls @ 100 mls/hr IV Q24H [facility] Stop: 01/30/17 11:30 Last Admin: 01/30/17 10:55 Dose: 100 mls/hr Piperacillin Sod/Tazobactam (Sod 2.25 gm/ Sodium Chloride) 50 mls @ 100 mls/hr IV Q6H [facility] Last Admin: 02/01/17 04:33 Dose: 100 mls/hr Levofloxacin/Dextrose 250 mg/ (Premix) 50 mls @ 50 mls/hr IV Q24H [facility] Last Admin: 02/02/17 10:03 Dose: 50 mls/hr Sodium Chloride (Normal Saline) 1,000 mls @ 250 mls/hr IV ASDIRECTED [facility] Sodium Chloride (Normal Saline) 1,000 mls @ 100 mls/hr IV ASDIRECTED [facility] Last Admin: 01/31/17 04:27 Dose: 100 mls/hr Sodium Chloride (Normal Saline) 1,000 mls @ 50 mls/hr IV ASDIRECTED [facility] Last Admin: 02/01/17 20:23 Dose: 50 mls/hr Ibuprofen (Motrin) 400 mg PO Q6H PRN PRN Reason: Abdominal Pain Lidocaine HCl (Xylocaine 2% Jelly) Confirm Administered Dose 10 ml .ROUTE .[employer] ONE Stop: 01/31/17 23:14 Last Admin: 01/31/17 23:27 Dose: 10 ml Lisinopril (Prinivil) 2.5 mg PO DAILY [facility] Lisinopril (Prinivil) 2.5 mg PO DAILY [facility] Last Admin: 01/30/17 11:01 Dose: 2.5 mg Naloxone HCl (Narcan) 0.1 mg IVPUSH Q5M PRN PRN Reason: RESP RATE LESS THAN 6/MINUTE Neostigmine Methylsulfate (Neostigmine) Confirm Administered Dose 5 mg .ROUTE .[employer]-MED ONE Stop: 01/28/17 12:32 Non-Formulary Medication (Cholecalciferol (Vitamin D3) [Vitamin D]) 1,000 unit PO DAILY [facility] Non-Formulary Medication (Fluticasone Propionate [Flonase Allergy Relief]) 2 spray NS DAILY [facility] Non-Formulary Medication (Multivitamin With Minerals [Multiple Vitamin]) 1 tab PO DAILY [facility] Non-Formulary Medication (Multivitamin-Min/Iron/Fa/Vit K [Multi-Day Plus Minerals Tablet]) 1 tab PO DAILY [facility] Non-Formulary Medication (Simvastatin [Simvastatin]) 80 mg PO DAILY [facility] Ondansetron HCl (Zofran) Confirm Administered Dose 4 mg .ROUTE .STK-MED ONE Stop: 01/28/17 12:32 Pantoprazole Sodium (Protonix Iv) 40 mg IVPUSH DAILY [facility] Last Admin: 01/28/17 17:37 Dose: Not Given Pantoprazole Sodium (Protonix Iv) 40 mg IVPUSH Q24H [facility] Last Admin: 01/31/17 17:11 Dose: 40 mg Pantoprazole Sodium (Protonix Iv) 40 mg IVPUSH BID [facility] Last Admin: 02/03/17 08:02 Dose: 40 mg Pantoprazole Sodium (Protonix Iv) 40 mg IV Q24H [facility] Potassium Chloride (Klor-Con M20) 40 meq PO ONETIME ONE Stop: 02/02/17 11:01 Last Admin: 02/02/17 10:47 Dose: 40 meq Potassium Chloride (Klor-Con M20) 40 meq PO ONETIME ONE Stop: 02/02/17 19:28 Last Admin: 02/02/17 20:04 Dose: 40 meq Potassium Chloride (Klor-Con M20) 40 meq PO DAILY [facility] Potassium Chloride (Klor-Con M20) 40 meq PO BIDMEALS [facility] Last Admin: 02/03/17 08:13 Dose: 40 meq Propofol (Diprivan 20 Ml) Confirm Administered Dose 200 mg .ROUTE .STK-MED ONE Stop: 01/28/17 12:32 Rocuronium [place] (Zemuron) Confirm Administered Dose 50 mg .ROUTE .STK-MED ONE Stop: 01/28/17 12:32 Scopolamine (Transderm-Scop) Confirm Administered Dose 1.5 mg .ROUTE .STK-MED ONE Stop: 01/28/17 15:15 Scopolamine (Transderm-Scop) 1.5 mg TRDERM Q72H [facility] Last Admin: 01/28/17 17:38 Dose: Not Given Sodium Polystyrene Sulfonate (Kayexalate) 45 gm PO NOW ONE Stop: 01/30/17 08:14 Last Admin: 01/30/17 12:35 Dose: Not Given Sodium Polystyrene Sulfonate (Kayexalate) 45 gm PO NOW ONE Stop: 01/30/17 13:04 Last Admin: 01/31/17 07:49 Dose: Not Given Sodium Polystyrene Sulfonate (Kayexalate) 45 gm RECTAL NOW ONE Stop: 01/30/17 13:11 Last Admin: 01/30/17 14:10 Dose: 45 gm Tamsulosin HCl (Flomax) 0.4 mg PO PCBREAKFAST [facility] - Exam Quality Assessment: No: supplemental oxygen General: alert, oriented, cooperative, no acute distress Neck: supple Lungs: Clear to auscultation, Normal respiratory effort Cardiovascular: Regular Rate, Regular Rhythm Abdomen: bowel sounds present, soft, no tenderness, no distension Extremities: no cyanosis, edema (pitting edema to the hip bilaterally (improved) ) Skin: warm, dry Psy/Mental Status: alert, normal affect Consult PN Assessment/Plan Procedures: Procedures BLOOD TYPING SEROLOGIC ABO (01/14/17) BLOOD TYPING SEROLOGIC RH(D) (01/14/17) CARCINOEMBRYONIC ANTIGEN (01/14/17) COLONOSCOPY AND BIOPSY (01/14/17) COMPLETE CBC AUTOMATED (01/14/17) COMPREHEN METABOLIC PANEL (01/14/17) PT EVALUATION (11/29/15) RBC ANTIBODY SCREEN (01/14/17) ROUTINE VENIPUNCTURE (01/14/17) THERAPEUTIC EXERCISES (11/29/15) TISSUE EXAM BY PATHOLOGIST (01/14/17) Problem List Initiated/Reviewed/Updated: Yes My Orders last 24 hours: My Active Orders 02/02/17 10:42 Benzocaine/Cetylpyrd/Menthol [Cepacol Sore Throat] 1 lozenge MUCMEM Q2H PRN Convert IV to Saline Lock [OM.PC] Routine 02/03/17 07:30 Levofloxacin [Levaquin] 750 mg PO ACBREAKFAST 02/03/17 07:54 Weight Daily [Height and Weight] [RC] DAILY 02/03/17 08:00 Furosemide [Lasix] 20 mg IVPUSH BIDDIURETIC 02/03/17 12:00 Potassium Chloride [Klor-Con M20] 40 meq PO TIDMEALS 02/03/17 17:00 POTASSIUM,K [CHEM] Timed 02/04/17 05:00 BASIC METABOLIC PANEL,BMP [CHEM] Timed HGB [HEMOGLOBIN] [HEME] Timed 02/04/17 07:30 Pantoprazole [ProTONIX] 40 mg PO ACBREAKFAST Plan: ASSESSMENT AND RECOMMENDATIONS STATUS POST RIGHT HEMICOLECTOMY FOR CECAL MASS - doing well from a surgical standpoint other than not much of an appetite. -Ongoing postoperative care per Dr. Mazariegos VOLUME OVERLOAD WITH PITTING EDEMA - secondary to volume resuscitation complicated by suboptimal nutrition status. Improving with diuresis but he still has quite a bit of fluid to remove. -Twice daily furosemide -Daily weights HYPOKALEMIA - initially hyperkalemic but potassium has been on the low side with diuresis. -3 times a day potassium -Recheck levels evening ACUTE ON CHRONIC RENAL INSUFFICIENCY - acute renal insufficiency resolved and creatinine is back to baseline. -Closely monitor urine output and renal function -Hold lisinopril with blood pressures that are still borderline LEFT LUNG PNEUMONIA - white blood cell count improving and no fevers. Not hypoxic. He does have some crackles in the left lung base. Cultures have been negative thus far -Blood cultures pending -Continue levofloxacin but increased to pneumonia dosing DELIRIUM - resolved with current management. -Melatonin 9 mg by mouth each bedtime (may discontinue at that time of discharge ) -Discontinue Depakote 250 mg by mouth twice a day Johnson Snider M.D.
[2017-02-03] MEDS: Scopolamine 1.5 MG Transdermal Patch TRDERM SCH (10:58)
[2017-02-03] MEDS: Potassium Chloride 20 MEQ Tab.ER PO SCH ×2 (13:38→17:33)
[2017-02-03] MEDS: Simvastatin 20 MG Tab PO SCH (17:33)
[2017-02-03] MEDS: Melatonin 3 MG Tab PO SCH (21:24)
[2017-02-03] MEDS: Enoxaparin 30 MG/0.3 ML Syringe SUBCUT SCH (22:41)
[2017-02-03] MEDS: Acetaminophen/HYDROcodone 325-5 MG Tab PO PRN (23:02)
[2017-02-04] MEDS: Sucralfate Suspension 1 GM/10 ML Cup PO SCH ×2 (07:13→11:02)
[2017-02-04] MEDS ORDERED: Pantoprazole 40 MG Tab.CR PO SCH (07:30)
[2017-02-04] MEDS: Potassium Chloride 20 MEQ Tab.ER PO SCH ×2 (07:33→12:23)
[2017-02-04] MEDS: Furosemide 20 MG/2 ML VIAL IVPUSH SCH (07:34)
[2017-02-04] MEDS: Bisacodyl 5 MG Tab PO SCH (08:40)
[2017-02-04] MEDS: Cholecalciferol (Vitamin D3) 1,000 Unit Tab PO SCH (08:41)
[2017-02-04] MEDS: Sennosides 8.6 MG Tab PO SCH (08:41)
[2017-02-04] MEDS: Cetirizine 10 MG Tab PO SCH (08:41)
[2017-02-04] MEDS: Multivitamins with Iron/Calcium/Folic Acid/Minerals Tab PO SCH (08:41)
[2017-02-04] MEDS: Atenolol 50 MG Tab PO SCH (08:42)
[2017-02-04] MEDS: Fluticasone Propionate Nasal Spray 16 GM Bottle NASBOTH SCH (08:42)
[2017-02-04] MEDS: Tamsulosin 0.4 MG Cap.ER PO SCH (08:42)
[2017-02-04] MEDS: TRANSDERM SCOP CHECK TOP SCH (08:45)
--- NOTE | 2017-02-04 10:32 | PCM.CONSN ---
- General Info Date of Service: 02/04/17 Functional Status: Reports: pain controlled, tolerating diet, ambulating - Review of Systems General: Denies: Weakness Pulmonary: Denies: shortness of breath Cardiovascular: Reports: Edema Gastrointestinal: Denies: Abdominal pain Systems Review Comment:: no acute events overnight. Lower tremor the edema has improved. Strength has been improving and he's been able to ambulate further each day. Not much of an appetite but he is tolerating his diet. His bowels have been moving. He has not been having any fevers. - Patient Data Vitals - most recent: Last Vital Signs Temp 36.3 C 02/04/17 07:04 Pulse 72 02/04/17 08:42 Resp 20 02/04/17 07:04 BP 130/69 02/04/17 08:42 Pulse Ox 95 02/04/17 07:04 Weight - most recent: 101.106 kg I&O - last 24 hours: Intake & Output 02/03/17 02/04/17 02/04/17 22:59 06:59 14:59 Intake Total 510 350 Output Total 1250 200 Balance -1250 510 150 Lab Results last 24 hrs: Laboratory Results - last 24 hr 02/03/17 02/04/17 02/04/17 Range/Units 17:00 05:00 05:39 Hgb 12.0 (12.0-15.0) g/dL Sodium 144 (140-148) mmol/L Potassium 3.4 L 3.3 L (3.6-5.2) mmol/L Chloride 107 (100-108) mmol/L Carbon Dioxide 31 (21-32) mmol/L Anion Gap 9.3 (5.0-14.0) mmol/L BUN 30 H (7-18) mg/dL Creatinine 0.9 (0.8-1.3) mg/dL Est Cr Clr Drug Dosing 60.36 mL/min Estimated GFR (MDRD) > 60 (>60) Glucose 103 (74-106) mg/dL Calcium 8.5 (8.5-10.1) mg/dL Slick Results last 24 hrs: Microbiology 01/30/17 10:20 Aerobic Blood Culture - Final Blood - Arm, Left NO GROWTH AFTER 5 DAYS Anaerobic Blood Culture - Final NO GROWTH AFTER 5 DAYS 01/30/17 10:10 Aerobic Blood Culture - Final Blood - Arm, Left NO GROWTH AFTER 5 DAYS Anaerobic Blood Culture - Final NO GROWTH AFTER 5 DAYS Med Orders - Current: Current Medications Hydrocodone Bitart/Acetaminophen ([place] 325-5 Mg) 1 tab PO Q4H PRN PRN Reason: Abdominal Pain Last Admin: 02/03/17 23:02 Dose: 1 tab Albuterol (Proventil Neb Soln) 2.5 mg NEB Q4H PRN PRN Reason: Wheezing Last Admin: 02/01/17 00:59 Dose: 2.5 mg Atenolol (Tenormin) 50 mg PO DAILY [facility] Last Admin: 02/04/17 08:42 Dose: 50 mg Benzocaine/Menthol (Cepacol Sore Throat) 1 lozenge MUCMEM Q2H PRN PRN Reason: Sore Throat Last Admin: 02/02/17 15:23 Dose: 1 lozenge Bisacodyl (Dulcolax) 10 mg PO BID [facility] Last Admin: 02/04/17 08:40 Dose: Not Given Cetirizine HCl (Zyrtec) 10 mg PO DAILY [facility] Last Admin: 02/04/17 08:41 Dose: 10 mg Cholecalciferol (Vitamin D3) 1,000 units PO DAILY [facility] Last Admin: 02/04/17 08:41 Dose: 1,000 units Enoxaparin Sodium (Lovenox) 30 mg SUBCUT Q24H [facility] Last Admin: 02/03/17 22:41 Dose: 30 mg Fluticasone Propionate (Flonase) 0 gm NASBOTH DAILY [facility] Last Admin: 02/04/17 08:42 Dose: 4 spray Furosemide (Lasix) 20 mg IVPUSH BIDDIURETIC [facility] Last Admin: 02/04/17 07:34 Dose: 20 mg Hydroxyzine HCl (Vistaril) 50 mg IM Q6H PRN PRN Reason: Abdominal Pain Levofloxacin 250 mg/ (Levofloxacin 500 mg) 750 mg PO Q24H [facility] Last Admin: 02/04/17 09:30 Dose: 750 mg Melatonin (Melatonin) 9 mg PO BEDTIME [facility] Last Admin: 02/03/17 21:24 Dose: 9 mg Multivitamins/Minerals (Thera M Plus) 1 tab PO DAILY [facility] Last Admin: 02/04/17 08:41 Dose: 1 tab Transderm Scop Patch (Check) 0 each TOP DAILY [facility] Last Admin: 02/04/17 08:45 Dose: Not Given Ondansetron HCl (Zofran) 4 mg IVPUSH Q6H PRN PRN Reason: Nausea/Vomiting Last Admin: 02/03/17 06:11 Dose: 4 mg Pantoprazole Sodium (Protonix) 40 mg PO ACBREAKFAST [facility] Last Admin: 02/04/17 07:13 Dose: 40 mg Potassium Chloride (Klor-Con M20) 40 meq PO TIDMEALS [facility] Last Admin: 02/04/17 07:33 Dose: 40 meq Senna (Senna) 8.6 mg PO DAILY [facility] Last Admin: 02/04/17 08:41 Dose: Not Given Simvastatin (Zocor) 80 mg PO QPM [facility] Last Admin: 02/03/17 17:33 Dose: 80 mg Sucralfate (Carafate) 1 gm PO QIDACANDBED [facility] Last Admin: 02/04/17 07:13 Dose: 1 gm Tamsulosin HCl (Flomax) 0.4 mg PO PCBREAKFAST [facility] Last Admin: 02/04/17 08:42 Dose: 0.4 mg Tramadol HCl (Ultram) 50 mg PO Q4H PRN PRN Reason: Abdominal Pain Discontinued Medications Alvimopan (Entereg) 12 mg PO ONETIME ONE Stop: 01/28/17 10:16 Last Admin: 01/28/17 12:01 Dose: 12 mg Alvimopan (Entereg) 12 mg PO Q12H [facility] Stop: 02/04/17 04:16 Last Admin: 01/28/17 17:38 Dose: Not Given Alvimopan (Entereg) 12 mg PO Q12H [facility] Stop: 02/04/17 09:01 Last Admin: 02/04/17 08:42 Dose: 12 mg Atenolol (Tenormin) 50 mg PO DAILY [facility] Cetirizine HCl (Zyrtec) 10 mg PO DAILY [facility] Clopidogrel Bisulfate (Plavix) 75 mg PO DAILY [facility] Dexamethasone (Dexamethasone) Confirm Administered Dose 4 mg .ROUTE .STK-MED ONE Stop: 01/28/17 12:32 Divalproex Sodium (Divalproex Sodium) 250 mg PO BIDMEALS [facility] Last Admin: 02/03/17 08:01 Dose: 250 mg Enoxaparin Sodium (Lovenox) 40 mg SUBCUT DAILY [facility] Enoxaparin Sodium (Lovenox) 40 mg SUBCUT DAILY [facility] Enoxaparin Sodium (Lovenox) 40 mg SUBCUT DAILY [facility] Last Admin: 01/30/17 12:50 Dose: Not Given Enoxaparin Sodium (Lovenox) 30 mg SUBCUT Q24H [facility] Last Admin: 01/30/17 13:11 Dose: 30 mg Ephedrine Sulfate (Ephedrine Sulfate) Confirm Administered Dose 50 mg .ROUTE .STK-MED ONE Stop: 01/28/17 14:36 Fentanyl (Sublimaze) Confirm Administered Dose 250 mcg .ROUTE .STK-MED ONE Stop: 01/28/17 12:32 Fentanyl (Sublimaze) Confirm Administered Dose 250 mcg .ROUTE .STK-MED ONE Stop: 01/28/17 14:26 Furosemide (Lasix) 20 mg IVPUSH ONETIME ONE Stop: 01/30/17 01:23 Last Admin: 01/30/17 02:14 Dose: 20 mg Furosemide (Lasix) 20 mg IVPUSH ONETIME ONE Stop: 02/02/17 10:16 Last Admin: 02/02/17 12:22 Dose: 20 mg Glycopyrrolate () Confirm Administered Dose 1 mg .ROUTE .STK-MED ONE Stop: 01/28/17 12:32 Dextrose/Lactated Ringer's (Dextrose 5%-Lactated Ringers) 1,000 mls @ 100 mls/ hr IV ASDIRECTED [facility] Last Admin: 01/28/17 11:32 Dose: 100 mls/hr Cefoxitin Sodium 2 gm/ Sodium (Chloride) 50 mls @ 100 mls/hr IV ONETIME ONE Stop: 01/28/17 13:14 Last Admin: 01/28/17 17:24 Dose: Not Given Fentanyl 2,500 mcg/ Sodium (Chloride) 250 mls @ 0 mls/hr EPIDUR TITRATE [facility]; Titrate PRN Reason: Protocol Last Titration: 01/30/17 08:19 Dose: 8 ml/hr, 8 mls/hr Sodium Chloride (Normal Saline) Confirm Administered Dose 10 mls @ as directed .ROUTE .STK-MED ONE Stop: 01/28/17 14:44 Potassium Chloride/Dextrose/Sod Cl (D5 1/2 Ns W/ 20 Meq/L Kcl) 1,000 mls @ 100 mls/hr IV ASDIRECTED [facility] Last Admin: 01/30/17 04:06 Dose: 100 mls/hr Hetastarch/Sodium Chloride (Hetastarch 6% In Normal Saline) 250 mls @ 250 mls/ hr IV ONETIME ONE Stop: 01/28/17 22:50 Last Admin: 01/28/17 22:26 Dose: 250 mls/hr Lactated Ringer's (Ringers, Lactated) 250 mls @ 250 mls/hr IV .BOLUS [facility] Last Admin: 01/29/17 03:05 Dose: 250 mls/hr Lactated Ringer's (Ringers, Lactated) 250 mls @ 250 mls/hr IV .BOLUS ONE Stop: 01/29/17 07:44 Last Admin: 01/29/17 06:30 Dose: 250 mls/hr Lactated Ringer's (Ringers, Lactated) 250 mls @ 250 mls/hr IV ONETIME ONE Stop: 01/29/17 17:59 Last Admin: 01/29/17 16:30 Dose: 250 mls/hr Lactated Ringer's (Ringers, Lactated) 500 mls @ 500 mls/hr IV BOLUS ONE Stop: 01/29/17 21:58 Last Admin: 01/29/17 21:12 Dose: 500 mls/hr Dextrose/Sodium Chloride (Dextrose 5%-1/2 Ns) 1,000 mls @ 100 mls/hr IV ASDIRECTED [facility] Last Admin: 01/30/17 07:57 Dose: 100 mls/hr Sodium Chloride (Normal Saline) 1,000 mls @ 500 mls/hr IV ASDIRECTED [facility] Stop: 01/30/17 10:16 Last Admin: 01/30/17 08:42 Dose: 500 mls/hr Levofloxacin/Dextrose 500 mg/ (Premix) 100 mls @ 100 mls/hr IV Q24H [facility] Stop: 01/30/17 11:30 Last Admin: 01/30/17 10:55 Dose: 100 mls/hr Piperacillin Sod/Tazobactam (Sod 2.25 gm/ Sodium Chloride) 50 mls @ 100 mls/hr IV Q6H [facility] Last Admin: 02/01/17 04:33 Dose: 100 mls/hr Levofloxacin/Dextrose 250 mg/ (Premix) 50 mls @ 50 mls/hr IV Q24H [facility] Last Admin: 02/02/17 10:03 Dose: 50 mls/hr Sodium Chloride (Normal Saline) 1,000 mls @ 250 mls/hr IV ASDIRECTED [facility] Sodium Chloride (Normal Saline) 1,000 mls @ 100 mls/hr IV ASDIRECTED [facility] Last Admin: 01/31/17 04:27 Dose: 100 mls/hr Sodium Chloride (Normal Saline) 1,000 mls @ 50 mls/hr IV ASDIRECTED [facility] Last Admin: 02/01/17 20:23 Dose: 50 mls/hr Ibuprofen (Motrin) 400 mg PO Q6H PRN PRN Reason: Abdominal Pain Levofloxacin 250 mg/ (Levofloxacin 500 mg) 750 mg PO ACBREAKFAST [facility] Last Admin: 02/04/17 08:47 Dose: Not Given Lidocaine HCl (Xylocaine 2% Jelly) Confirm Administered Dose 10 ml .ROUTE .STTryouts- MED ONE Stop: 01/31/17 23:14 Last Admin: 01/31/17 23:27 Dose: 10 ml Lisinopril (Prinivil) 2.5 mg PO DAILY [facility] Lisinopril (Prinivil) 2.5 mg PO DAILY [facility] Last Admin: 01/30/17 11:01 Dose: 2.5 mg Naloxone HCl (Narcan) 0.1 mg IVPUSH Q5M PRN PRN Reason: RESP RATE LESS THAN 6/MINUTE Neostigmine Methylsulfate (Neostigmine) Confirm Administered Dose 5 mg .ROUTE .STTryouts-MED ONE Stop: 01/28/17 12:32 Non-Formulary Medication (Cholecalciferol (Vitamin D3) [Vitamin D]) 1,000 unit PO DAILY [facility] Non-Formulary Medication (Fluticasone Propionate [Flonase Allergy Relief]) 2 spray NS DAILY [facility] Non-Formulary Medication (Multivitamin With Minerals [Multiple Vitamin]) 1 tab PO DAILY [facility] Non-Formulary Medication (Multivitamin-Min/Iron/Fa/Vit K [Multi-Day Plus Minerals Tablet]) 1 tab PO DAILY [facility] Non-Formulary Medication (Simvastatin [Simvastatin]) 80 mg PO DAILY [facility] Ondansetron HCl (Zofran) Confirm Administered Dose 4 mg .ROUTE .STTryouts-MED ONE Stop: 01/28/17 12:32 Pantoprazole Sodium (Protonix Iv) 40 mg IVPUSH DAILY [facility] Last Admin: 01/28/17 17:37 Dose: Not Given Pantoprazole Sodium (Protonix Iv) 40 mg IVPUSH Q24H [facility] Last Admin: 01/31/17 17:11 Dose: 40 mg Pantoprazole Sodium (Protonix Iv) 40 mg IVPUSH BID [facility] Last Admin: 02/03/17 08:02 Dose: 40 mg Pantoprazole Sodium (Protonix Iv) 40 mg IV Q24H [facility] Potassium Chloride (Klor-Con M20) 40 meq PO ONETIME ONE Stop: 02/02/17 11:01 Last Admin: 02/02/17 10:47 Dose: 40 meq Potassium Chloride (Klor-Con M20) 40 meq PO ONETIME ONE Stop: 02/02/17 19:28 Last Admin: 02/02/17 20:04 Dose: 40 meq Potassium Chloride (Klor-Con M20) 40 meq PO DAILY [facility] Potassium Chloride (Klor-Con M20) 40 meq PO BIDMEALS [facility] Last Admin: 02/03/17 08:13 Dose: 40 meq Propofol (Diprivan 20 Ml) Confirm Administered Dose 200 mg .ROUTE .STK-MED ONE Stop: 01/28/17 12:32 Rocuronium [place] (Zemuron) Confirm Administered Dose 50 mg .ROUTE .STK-MED ONE Stop: 01/28/17 12:32 Scopolamine (Transderm-Scop) Confirm Administered Dose 1.5 mg .ROUTE .STK-MED ONE Stop: 01/28/17 15:15 Scopolamine (Transderm-Scop) 1.5 mg TRDERM Q72H [facility] Last Admin: 01/28/17 17:38 Dose: Not Given Scopolamine (Transderm-Scop) 1.5 mg TRDERM Q72H [facility] Last Admin: 02/03/17 10:58 Dose: 1.5 mg Sodium Polystyrene Sulfonate (Kayexalate) 45 gm PO NOW ONE Stop: 01/30/17 08:14 Last Admin: 01/30/17 12:35 Dose: Not Given Sodium Polystyrene Sulfonate (Kayexalate) 45 gm PO NOW ONE Stop: 01/30/17 13:04 Last Admin: 01/31/17 07:49 Dose: Not Given Sodium Polystyrene Sulfonate (Kayexalate) 45 gm RECTAL NOW ONE Stop: 01/30/17 13:11 Last Admin: 01/30/17 14:10 Dose: 45 gm Tamsulosin HCl (Flomax) 0.4 mg PO PCBREAKFAST [facility] - Exam Quality Assessment: No: supplemental oxygen General: alert, oriented, cooperative, no acute distress Neck: supple Lungs: Normal respiratory effort Cardiovascular: Regular Rate, Regular Rhythm Abdomen: soft, no distension Extremities: edema (pitting edema, mostly dependent areas of both legs to the mid thigh) Skin: warm, dry Wound/Incisions: healing well, dressing dry and intact, no drainage Psy/Mental Status: alert, normal affect Consult PN Assessment/Plan Procedures: Procedures BLOOD TYPING SEROLOGIC ABO (01/14/17) BLOOD TYPING SEROLOGIC RH(D) (01/14/17) CARCINOEMBRYONIC ANTIGEN (01/14/17) COLONOSCOPY AND BIOPSY (01/14/17) COMPLETE CBC AUTOMATED (01/14/17) COMPREHEN METABOLIC PANEL (01/14/17) PT EVALUATION (11/29/15) RBC ANTIBODY SCREEN (01/14/17) ROUTINE VENIPUNCTURE (01/14/17) THERAPEUTIC EXERCISES (11/29/15) TISSUE EXAM BY PATHOLOGIST (01/14/17) Problem List Initiated/Reviewed/Updated: Yes My Orders last 24 hours: My Active Orders 02/03/17 12:00 Potassium Chloride [Klor-Con M20] 40 meq PO TIDMEALS 02/04/17 07:30 Pantoprazole [ProTONIX] 40 mg PO ACBREAKFAST 02/04/17 10:00 Levofloxacin [Levaquin] 750 mg PO Q24H Plan: ASSESSMENT AND RECOMMENDATIONS STATUS POST RIGHT HEMICOLECTOMY FOR CECAL MASS - doing well from a surgical standpoint other than not much of an appetite. -Ongoing postoperative care per Dr. Mazariegos VOLUME OVERLOAD WITH PITTING EDEMA - secondary to volume resuscitation complicated by suboptimal nutrition status. edema quite a bit better today. -furosemide once daily times one week after hospital discharge HYPOKALEMIA - still mild hypokalemia. -potassium supplement once daily x10 days after hospital discharge -high potassium diet ACUTE ON CHRONIC RENAL INSUFFICIENCY - acute renal insufficiency resolved and creatinine is back to baseline. -Closely monitor urine output and renal function -restart lisinopril LEFT LUNG PNEUMONIA - white blood cell count improving and no fevers. Not hypoxic. He does have some crackles in the left lung base. Cultures have been negative thus far -Blood cultures pending -discontinue antibiotics DELIRIUM - resolved with current management. -no outpatient medications required Johnson Snider M.D.
[2017-02-04 10:48] VITALS: BP 103/62
--- NOTE | 2017-02-22 09:54 | PCM.DCSUM1 ---
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 We attempted to preform a "fast track," but he did not tolerate this. He became dehydrated treated with fluids. He developed acute on chronic renal insufficiency which has improved. It appears he has a left side pneumonia with no hypoxia. He was treated with a course of Levaquin. At the time of discharge he is eating well, afebrile, feels well, and is discharged in good condition. 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 Brief History: See above narrative. - Discharge Data Discharge Date: 02/04/17 Discharge Disposition: Home, W Home Health Agency 06 Condition: Good - Discharge Diagnosis/Problem(s) (1) Status post right hemicolectomy SNOMED Code(s): 202296910, [id number] ICD Code: Z90.49 - ACQUIRED ABSENCE OF OTHER SPECIFIED PARTS OF DIGESTIVE TRACT Status: Acute - Patient Summary/Data Consults: Consultations 01/28/17 15:57 Respiratory Care Assess and Treatment [CONS] Routine Comment: Physician Instructions: 01/31/17 09:13 Consult to Physical Therapy [PT Evaluation and Treatment] [CONS] Routine Please Evaluate and Treat. PT Reason for Consult: Strengthening This query below is only for informational purposes and is not editable. Admission Diagnosis/Problem: "Adenoma, no subtype " Planned Operative Procedure(s) after DC: See above narrative. Hospital Course: See above narrative. - Patient Instructions Diet: Usual Diet as Tolerated Activity: No Lifting Over 10 Pounds, No Strenuous Activities Activity, Other: For five more weeks. Driving, Other: Do not drive Showering/Bathing: Shower in AM Notify Provider of: Fever, Increased Pain, Swelling and Redness, Drainage, Nausea and/or Vomiting Other/Special Instructions: 1. Take furosemide (Lasix) 40 mg once daily in the morning for 7 days. This will help to reduce the swelling in your legs. 2. Take potassium chloride 20 mEq once daily in the morning for 10 days. This will help to keep your potassium level in the normal range. 3. I have completed a referral to home health care that you can receive nursing assistance after hospital discharge. This will help to ease the transition from the hospital to home. You should have your potassium level rechecked next Thursday. - Discharge Plan Prescriptions/Med Rec: Acetaminophen/HYDROcodone [[place] 325-5 MG] 1 - 2 tab PO Q4H PRN #30 tablet PRN Reason: Abdominal Pain Furosemide 40 mg PO DAILY #7 tablet Potassium Chloride 20 meq PO DAILY #10 tablet.er Home Medications: Home Meds Atenolol 50 mg PO DAILY 01/12/17 [History] Cetirizine [ZyrTEC] 10 mg PO DAILY 01/12/17 [History] Cholecalciferol (Vitamin D3) [Vitamin D] 1,000 unit PO DAILY 01/12/17 [History] Fluticasone Propionate [Flonase Allergy Relief] 2 spray NS DAILY 01/12/17 [ History] Lisinopril [Prinivil] 2.5 mg PO DAILY 01/12/17 [History] Multivitamin with Minerals [Multiple Vitamin] 1 tab PO DAILY 01/12/17 [History] Multivitamin-Min/Iron/FA/Vit K [Multi-Day Plus Minerals Tablet] 1 tab PO DAILY 01/12/17 [History] Ranitidine [Zantac] 300 mg PO DAILY 01/12/17 [History] Sennosides [Senna] 1 tab PO ASDIRECTED 01/12/17 [History] Simvastatin 80 mg PO DAILY 01/12/17 [History] Acetaminophen/HYDROcodone [[place] 325-5 MG] 1 - 2 tab PO Q4H PRN #30 tablet 02/04 [Rx] Furosemide 40 mg PO DAILY #7 tablet 02/04/17 [Rx] Furosemide [Lasix] 20 mg IVPUSH BIDDIURETIC #0 vial 02/04/17 [Rx] Potassium Chloride 20 meq PO DAILY #10 tablet.er 02/04/17 [Rx] Patient Handouts: Furosemide tablets, Edema Referrals: Cesar Mazariegos MD [Physician] - (See me a week from this Thursday in [facility]. ) - Discharge Summary/Plan Comment DC Time >30 min.: Yes Discharge Summary/Plan Comment: See above narrative. - Patient Data Vitals - Most Recent: Last Vital Signs Temp 98.1 F 02/04/17 10:47 Pulse 75 02/04/17 10:47 Resp 18 02/04/17 10:47 BP 103/62 02/04/17 10:47 Pulse Ox 95 02/04/17 10:47 Weight - Most Recent: 222 lb 14.4 oz Med Orders - Current: Current Medications Discontinued Medications Hydrocodone Bitart/Acetaminophen ([place] 325-5 Mg) 1 tab PO Q4H PRN PRN Reason: Abdominal Pain Last Admin: 02/03/17 23:02 Dose: 1 tab Albuterol (Proventil Neb Soln) 2.5 mg NEB Q4H PRN PRN Reason: Wheezing Last Admin: 02/01/17 00:59 Dose: 2.5 mg Alvimopan (Entereg) 12 mg PO ONETIME ONE Stop: 01/28/17 10:16 Last Admin: 01/28/17 12:01 Dose: 12 mg Alvimopan (Entereg) 12 mg PO Q12H [facility] Stop: 02/04/17 04:16 Last Admin: 01/28/17 17:38 Dose: Not Given Alvimopan (Entereg) 12 mg PO Q12H [facility] Stop: 02/04/17 09:01 Last Admin: 02/04/17 08:42 Dose: 12 mg Atenolol (Tenormin) 50 mg PO DAILY [facility] Atenolol (Tenormin) 50 mg PO DAILY [facility] Last Admin: 02/04/17 08:42 Dose: 50 mg Benzocaine/Menthol (Cepacol Sore Throat) 1 lozenge MUCMEM Q2H PRN PRN Reason: Sore Throat Last Admin: 02/02/17 15:23 Dose: 1 lozenge Bisacodyl (Dulcolax) 10 mg PO BID [facility] Last Admin: 02/04/17 08:40 Dose: Not Given Cetirizine HCl (Zyrtec) 10 mg PO DAILY [facility] Cetirizine HCl (Zyrtec) 10 mg PO DAILY [facility] Last Admin: 02/04/17 08:41 Dose: 10 mg Cholecalciferol (Vitamin D3) 1,000 units PO DAILY [facility] Last Admin: 02/04/17 08:41 Dose: 1,000 units Clopidogrel Bisulfate (Plavix) 75 mg PO DAILY [facility] Dexamethasone (Dexamethasone) Confirm Administered Dose 4 mg .ROUTE .STK-MED ONE Stop: 01/28/17 12:32 Divalproex Sodium (Divalproex Sodium) 250 mg PO BIDMEALS [facility] Last Admin: 02/03/17 08:01 Dose: 250 mg Enoxaparin Sodium (Lovenox) 40 mg SUBCUT DAILY [facility] Enoxaparin Sodium (Lovenox) 40 mg SUBCUT DAILY [facility] Enoxaparin Sodium (Lovenox) 40 mg SUBCUT DAILY [facility] Last Admin: 01/30/17 12:50 Dose: Not Given Enoxaparin Sodium (Lovenox) 30 mg SUBCUT Q24H [facility] Last Admin: 01/30/17 13:11 Dose: 30 mg Enoxaparin Sodium (Lovenox) 30 mg SUBCUT Q24H [facility] Last Admin: 02/03/17 22:41 Dose: 30 mg Ephedrine Sulfate (Ephedrine Sulfate) Confirm Administered Dose 50 mg .ROUTE .STK-MED ONE Stop: 01/28/17 14:36 Fentanyl (Sublimaze) Confirm Administered Dose 250 mcg .ROUTE .STK-MED ONE Stop: 01/28/17 12:32 Fentanyl (Sublimaze) Confirm Administered Dose 250 mcg .ROUTE .STK-MED ONE Stop: 01/28/17 14:26 Fluticasone Propionate (Flonase) 0 gm NASBOTH DAILY [facility] Last Admin: 02/04/17 08:42 Dose: 4 spray Furosemide (Lasix) 20 mg IVPUSH ONETIME ONE Stop: 01/30/17 01:23 Last Admin: 01/30/17 02:14 Dose: 20 mg Furosemide (Lasix) 20 mg IVPUSH ONETIME ONE Stop: 02/02/17 10:16 Last Admin: 02/02/17 12:22 Dose: 20 mg Furosemide (Lasix) 20 mg IVPUSH BIDDIURETIC [facility] Last Admin: 02/04/17 07:34 Dose: 20 mg Glycopyrrolate () Confirm Administered Dose 1 mg .ROUTE .STK-MED ONE Stop: 01/28/17 12:32 Hydroxyzine HCl (Vistaril) 50 mg IM Q6H PRN PRN Reason: Abdominal Pain Dextrose/Lactated Ringer's (Dextrose 5%-Lactated Ringers) 1,000 mls @ 100 mls/ hr IV ASDIRECTED [facility] Last Admin: 01/28/17 11:32 Dose: 100 mls/hr Cefoxitin Sodium 2 gm/ Sodium (Chloride) 50 mls @ 100 mls/hr IV ONETIME ONE Stop: 01/28/17 13:14 Last Admin: 01/28/17 17:24 Dose: Not Given Fentanyl 2,500 mcg/ Sodium (Chloride) 250 mls @ 0 mls/hr EPIDUR TITRATE CHANA; Titrate PRN Reason: Protocol Last Titration: 01/30/17 08:19 Dose: 8 ml/hr, 8 mls/hr Sodium Chloride (Normal Saline) Confirm Administered Dose 10 mls @ as directed .ROUTE .STK-MED ONE Stop: 01/28/17 14:44 Potassium Chloride/Dextrose/Sod Cl (D5 1/2 Ns W/ 20 Meq/L Kcl) 1,000 mls @ 100 mls/hr IV ASDIRECTED [facility] Last Admin: 01/30/17 04:06 Dose: 100 mls/hr Hetastarch/Sodium Chloride (Hetastarch 6% In Normal Saline) 250 mls @ 250 mls/ hr IV ONETIME ONE Stop: 01/28/17 22:50 Last Admin: 01/28/17 22:26 Dose: 250 mls/hr Lactated Ringer's (Ringers, Lactated) 250 mls @ 250 mls/hr IV .BOLUS [facility]ANA Last Admin: 01/29/17 03:05 Dose: 250 mls/hr Lactated Ringer's (Ringers, Lactated) 250 mls @ 250 mls/hr IV .BOLUS ONE Stop: 01/29/17 07:44 Last Admin: 01/29/17 06:30 Dose: 250 mls/hr Lactated Ringer's (Ringers, Lactated) 250 mls @ 250 mls/hr IV ONETIME ONE Stop: 01/29/17 17:59 Last Admin: 01/29/17 16:30 Dose: 250 mls/hr Lactated Ringer's (Ringers, Lactated) 500 mls @ 500 mls/hr IV BOLUS ONE Stop: 01/29/17 21:58 Last Admin: 01/29/17 21:12 Dose: 500 mls/hr Dextrose/Sodium Chloride (Dextrose 5%-1/2 Ns) 1,000 mls @ 100 mls/hr IV ASDIRECTED [facility] Last Admin: 01/30/17 07:57 Dose: 100 mls/hr Sodium Chloride (Normal Saline) 1,000 mls @ 500 mls/hr IV ASDIRECTED [facility] Stop: 01/30/17 10:16 Last Admin: 01/30/17 08:42 Dose: 500 mls/hr Levofloxacin/Dextrose 500 mg/ (Premix) 100 mls @ 100 mls/hr IV Q24H [facility] Stop: 01/30/17 11:30 Last Admin: 01/30/17 10:55 Dose: 100 mls/hr Piperacillin Sod/Tazobactam (Sod 2.25 gm/ Sodium Chloride) 50 mls @ 100 mls/hr IV Q6H [facility] Last Admin: 02/01/17 04:33 Dose: 100 mls/hr Levofloxacin/Dextrose 250 mg/ (Premix) 50 mls @ 50 mls/hr IV Q24H [facility] Last Admin: 02/02/17 10:03 Dose: 50 mls/hr Sodium Chloride (Normal Saline) 1,000 mls @ 250 mls/hr IV ASDIRECTED [facility] Sodium Chloride (Normal Saline) 1,000 mls @ 100 mls/hr IV ASDIRECTED [facility] Last Admin: 01/31/17 04:27 Dose: 100 mls/hr Sodium Chloride (Normal Saline) 1,000 mls @ 50 mls/hr IV ASDIRECTED [facility] Last Admin: 02/01/17 20:23 Dose: 50 mls/hr Ibuprofen (Motrin) 400 mg PO Q6H PRN PRN Reason: Abdominal Pain Levofloxacin 250 mg/ (Levofloxacin 500 mg) 750 mg PO ACBREAKFAST [facility] Last Admin: 02/04/17 08:47 Dose: Not Given Levofloxacin 250 mg/ (Levofloxacin 500 mg) 750 mg PO Q24H [facility] Last Admin: 02/04/17 09:30 Dose: 750 mg Lidocaine HCl (Xylocaine 2% Jelly) Confirm Administered Dose 10 ml .ROUTE .STK- MED ONE Stop: 01/31/17 23:14 Last Admin: 01/31/17 23:27 Dose: 10 ml Lisinopril (Prinivil) 2.5 mg PO DAILY [facility] Lisinopril (Prinivil) 2.5 mg PO DAILY [facility] Last Admin: 01/30/17 11:01 Dose: 2.5 mg Melatonin (Melatonin) 9 mg PO BEDTIME [facility] Last Admin: 02/03/17 21:24 Dose: 9 mg Multivitamins/Minerals (Thera M Plus) 1 tab PO DAILY [facility] Last Admin: 02/04/17 08:41 Dose: 1 tab Naloxone HCl (Narcan) 0.1 mg IVPUSH Q5M PRN PRN Reason: RESP RATE LESS THAN 6/MINUTE Neostigmine Methylsulfate (Neostigmine) Confirm Administered Dose 5 mg .ROUTE .STK-MED ONE Stop: 01/28/17 12:32 Non-Formulary Medication (Cholecalciferol (Vitamin D3) [Vitamin D]) 1,000 unit PO DAILY [facility] Non-Formulary Medication (Fluticasone Propionate [Flonase Allergy Relief]) 2 spray NS DAILY [facility] Non-Formulary Medication (Multivitamin With Minerals [Multiple Vitamin]) 1 tab PO DAILY [facility] Non-Formulary Medication (Multivitamin-Min/Iron/Fa/Vit K [Multi-Day Plus Minerals Tablet]) 1 tab PO DAILY [facility] Non-Formulary Medication (Simvastatin [Simvastatin]) 80 mg PO DAILY [facility] Transderm Scop Patch (Check) 0 each TOP DAILY [facility] Last Admin: 02/04/17 08:45 Dose: Not Given Ondansetron HCl (Zofran) Confirm Administered Dose 4 mg .ROUTE .STK-MED ONE Stop: 01/28/17 12:32 Ondansetron HCl (Zofran) 4 mg IVPUSH Q6H PRN PRN Reason: Nausea/Vomiting Last Admin: 02/03/17 06:11 Dose: 4 mg Pantoprazole Sodium (Protonix Iv) 40 mg IVPUSH DAILY [facility] Last Admin: 01/28/17 17:37 Dose: Not Given Pantoprazole Sodium (Protonix Iv) 40 mg IVPUSH Q24H [facility] Last Admin: 01/31/17 17:11 Dose: 40 mg Pantoprazole Sodium (Protonix Iv) 40 mg IVPUSH BID [facility] Last Admin: 02/03/17 08:02 Dose: 40 mg Pantoprazole Sodium (Protonix Iv) 40 mg IV Q24H [facility] Pantoprazole Sodium (Protonix) 40 mg PO ACBREAKFAST [facility] Last Admin: 02/04/17 07:13 Dose: 40 mg Potassium Chloride (Klor-Con M20) 40 meq PO ONETIME ONE Stop: 02/02/17 11:01 Last Admin: 02/02/17 10:47 Dose: 40 meq Potassium Chloride (Klor-Con M20) 40 meq PO ONETIME ONE Stop: 02/02/17 19:28 Last Admin: 02/02/17 20:04 Dose: 40 meq Potassium Chloride (Klor-Con M20) 40 meq PO DAILY [facility] Potassium Chloride (Klor-Con M20) 40 meq PO BIDMEALS [facility] Last Admin: 02/03/17 08:13 Dose: 40 meq Potassium Chloride (Klor-Con M20) 40 meq PO TIDMEALS [facility] Last Admin: 02/04/17 12:23 Dose: 40 meq Propofol (Diprivan 20 Ml) Confirm Administered Dose 200 mg .ROUTE .STK-MED ONE Stop: 01/28/17 12:32 Rocuronium Lena (Zemuron) Confirm Administered Dose 50 mg .ROUTE .STK-MED ONE Stop: 01/28/17 12:32 Scopolamine (Transderm-Scop) Confirm Administered Dose 1.5 mg .ROUTE .STK-MED ONE Stop: 01/28/17 15:15 Scopolamine (Transderm-Scop) 1.5 mg TRDERM Q72H [facility] Last Admin: 01/28/17 17:38 Dose: Not Given Scopolamine (Transderm-Scop) 1.5 mg TRDERM Q72H [facility] Last Admin: 02/03/17 10:58 Dose: 1.5 mg Senna (Senna) 8.6 mg PO DAILY [facility] Last Admin: 02/04/17 08:41 Dose: Not Given Simvastatin (Zocor) 80 mg PO QPM [facility] Last Admin: 02/03/17 17:33 Dose: 80 mg Sodium Polystyrene Sulfonate (Kayexalate) 45 gm PO NOW ONE Stop: 01/30/17 08:14 Last Admin: 01/30/17 12:35 Dose: Not Given Sodium Polystyrene Sulfonate (Kayexalate) 45 gm PO NOW ONE Stop: 01/30/17 13:04 Last Admin: 01/31/17 07:49 Dose: Not Given Sodium Polystyrene Sulfonate (Kayexalate) 45 gm RECTAL NOW ONE Stop: 01/30/17 13:11 Last Admin: 01/30/17 14:10 Dose: 45 gm Sucralfate (Carafate) 1 gm PO QIDACANDBED [facility] Last Admin: 02/04/17 11:02 Dose: 1 gm Tamsulosin HCl (Flomax) 0.4 mg PO PCBREAKFAST [facility] Tamsulosin HCl (Flomax) 0.4 mg PO PCBREAKFAST [facility] Last Admin: 02/04/17 08:42 Dose: 0.4 mg Tramadol HCl (Ultram) 50 mg PO Q4H PRN PRN Reason: Abdominal Pain *Q Meaningful Use (DIS) - VTE *Q VTE Criteria *Q: - Stroke *Q Stroke Criteria *Q: - AMI *Q AMI Criteria *Q:
== END 2017-02-04 15:05 | disposition home health service (06) | DRG 329 ==
LOC: JP.SDS 10:09 → EDSTATUS 14:00 → JP.MS 14:00 → JP.ICU 01-30 09:58 → JP.MS 02-01 11:15
PROVIDERS: ADMIT Surgery; ATTEND Hospitalist
PROC: 0DTF0ZZ Resection of Right Large Intestine, Open Approach (ICD-10-PCS; principal; 2017-01-28)
DX: D12.0 Benign neoplasm of cecum (principal); J18.9 Pneumonia, unspecified organism; I12.9 Hypertensive chronic kidney disease with stage 1 through stage 4 chronic kidney disease, or unspecified chronic kidney disease; N18.3 Chronic kidney disease, stage 3 (moderate); Z87.891 Personal history of nicotine dependence; E87.5 Hyperkalemia; K21.9 Gastro-esophageal reflux disease without esophagitis; I25.10 Atherosclerotic heart disease of native coronary artery without angina pectoris; Z95.1 Presence of aortocoronary bypass graft; M19.90 Unspecified osteoarthritis, unspecified site; E66.9 Obesity, unspecified; Z68.37 Body mass index [BMI] 37.0-37.9, adult; N40.0 Benign prostatic hyperplasia without lower urinary tract symptoms; I95.9 Hypotension, unspecified; N28.9 Disorder of kidney and ureter, unspecified; D72.829 Elevated white blood cell count, unspecified; Z79.82 Long term (current) use of aspirin; R41.0 Disorientation, unspecified; E87.70 Fluid overload, unspecified
CPT/HCPCS: 36415; 71010; 71010-26; 80048; 80076; 81001; 84132; 85018; 85027; 87040; 88307; 94762; 97162-GP; 97530-GP; 99232; A9270-GY; C9113; J0694; J1100; J1650; J1940; J1956; J2405; J2543; J2704; J3010; J3480; J7040; J7042; J7050; J7120

== ENCOUNTER 2022-07-11 06:08 | Emergency (ER) | payer MEDICARE ==
[2022-07-11] MEDS ORDERED: Sodium Chloride 0.9% 10 ML Syringe FLUSH PRN (06:38)
[2022-07-11 07:37] LABS: ESTIMATED GFR 74 mL/min (>60)
[2022-07-11] MEDS ORDERED: Sodium Chloride 0.9% 10 ML Syringe FLUSH ONE (07:45)
[2022-07-11] MEDS ORDERED: Sodium Chloride 0.9% 50 ML IV SCH (07:45)
[2022-07-11] MEDS ORDERED: Iopamidol 612 MG/ML 100 ML Bottle IV SCH (07:45)
[2022-07-11] MEDS ORDERED: fentaNYL 100 MCG/2 ML SDV IVPUSH ONE (08:41)
[2022-07-11 09:00] VITALS: BP 154/67; PULSE 83
[2022-07-11] MEDS ORDERED: Acetaminophen 325 MG Tab PO ONE (09:13)
[2022-07-11] MEDS ORDERED: Morphine 2 MG/ML SYRINGE IVPUSH ONE (09:28)
[2022-07-11] MEDS ORDERED: Lactated Ringers 1,000 ML IV ONE (09:39)
== END 2022-07-11 10:05 ==
LOC: JP.ED 06:08
DX: K81.0 Acute cholecystitis (principal); I25.10 Atherosclerotic heart disease of native coronary artery without angina pectoris; I10 Essential (primary) hypertension; E66.9 Obesity, unspecified; Z95.1 Presence of aortocoronary bypass graft; Z91.048 Other nonmedicinal substance allergy status; Z79.82 Long term (current) use of aspirin; Z79.899 Other long term (current) drug therapy; Z20.822 Contact with and (suspected) exposure to COVID-19; Z68.37 Body mass index [BMI] 37.0-37.9, adult
CPT/HCPCS: 36415; 74177; 80053; 84484; 85025; 96374; 99285; J2270; J3490; J7120; Q9967; U0002

== ENCOUNTER 2023-07-31 08:33 | Emergency (ER) | payer MEDICARE ==
[2023-07-31] MEDS ORDERED: Sodium Chloride 0.9% 10 ML Syringe FLUSH PRN (09:12)
[2023-07-31] MEDS ORDERED: Sodium Chloride 0.9% 1,000 ML IV SCH (09:15)
[2023-07-31 09:34] LABS: BASOPHILS ABSOLUTE AUTO 0.06 K/uL (0.00-0.10); BASOPHILS PERCENT AUTO 0.6 % (0.1-1.3); EOSINOPHILS PERCENT AUTO 2.1 % (0.0-5.4); HEMATOCRIT 39.6 % (38.4-49.7); HEMOGLOBIN 14.1 g/dL (12.9-16.9); IMMATURE GRAN ABSOLUTE AUTO 0.05 K/uL (0.00-0.23); IMMATURE GRAN PERCENT AUTO 0.5 % (0.0-0.7); LYMPHOCYTES ABSOLUTE AUTO 1.87 K/uL (0.8-3.3); LYMPHOCYTES PERCENT AUTO 19.2 % (11.4-47.7); MEAN CORPUSCULAR HEMOGLOBIN 33.5 pg (31.6-35.5); MEAN CORPUSCULAR HGB CONC 35.6 g/dL (31.6-35.5); MEAN CORPUSCULAR VOLUME 94.1 fL (81.4-99.0); MONOCYTES ABSOLUTE AUTO 0.69 K/uL (0.20-0.90); MONOCYTES PERCENT AUTO 7.1 % (3.3-12.6); NEUTROPHILS ABSOLUTE AUTO 6.88 K/uL (1.0-7.6); NEUTROPHILS PERCENT AUTO 70.5 % (40.0-78.1); PLATELET COUNT,PLT 226 K/uL (130-375); RED BLOOD CELL COUNT 4.21 M/uL (4.14-5.76); WHITE BLOOD CELL COUNT,WBC 9.8 K/uL (3.2-11.0)
[2023-07-31] MEDS ORDERED: Iopamidol 612 MG/ML 100 ML Bottle IV PRN (09:36)
[2023-07-31] MEDS ORDERED: Sodium Chloride 0.9% 100 ML IV SCH (09:45)
[2023-07-31 09:58] LABS: A/G RATIO 0.9 (1.2-2.2); ALANINE AMINOTRANSFERASE,ALT 19 U/L (12-78); ALBUMIN 3.3 g/dL (3.4-5.0); ALKALINE PHOSPHATASE 60 U/L (46-116); ASPARTATE AMNIOTRANSFERASE,AST 16 U/L (15-37); BILIRUBIN TOTAL 0.5 mg/dL (0.2-1.0); BLOOD UREA NITROGEN,BUN 27 mg/dL (7-18); CALCIUM 8.8 mg/dL (8.5-10.1); CARBON DIOXIDE,CO2 25 mmol/L (21-32); CHLORIDE,CL 104 mmol/L (100-108); CREATININE 0.9 mg/dL (0.8-1.3); EST CRCL DRUG DOSING (CG) 51.25 mL/min; ESTIMATED GFR 83 mL/min (>60); GLUCOSE RANDOM 123 mg/dL (74-106); POTASSIUM,K 4.3 mmol/L (3.6-5.2); PROTEIN TOTAL,TP 6.9 g/dL (6.4-8.2); SODIUM,NA 139 mmol/L (140-148); TROPONIN I HIGH SENSITIVITY 6.4 pg/mL (<=60.3)
[2023-07-31 09:59] LABS: ANION GAP 14.3 mmol/L (5.0-14.0)
[2023-07-31] MEDS ORDERED: Iopamidol 755 Mg/ML 100 ML Bottle IV SCH (10:15)
[2023-07-31 10:55] VITALS: BP 146/68; PULSE 62
[2023-07-31] MEDS ORDERED: Meclizine 25 MG Tab PO ONE (12:06)
== END 2023-07-31 13:55 | disposition home or self-care (01) ==
LOC: JP.ED 08:33
DX: I65.22 Occlusion and stenosis of left carotid artery (principal); I25.810 Atherosclerosis of coronary artery bypass graft(s) without angina pectoris; I10 Essential (primary) hypertension; K21.9 Gastro-esophageal reflux disease without esophagitis; M19.90 Unspecified osteoarthritis, unspecified site; E66.9 Obesity, unspecified; Z68.36 Body mass index [BMI] 36.0-36.9, adult; Z91.048 Other nonmedicinal substance allergy status; Z79.899 Other long term (current) drug therapy; Z79.82 Long term (current) use of aspirin
CPT/HCPCS: 36415; 70450; 70450-26; 70496; 70496-26; 70498; 70498-26; 80053; 83605; 84484; 85025; 93005; 93010; 99284; A9270-GY; J3490; J7030; Q9967